=== PATIENT | male | born 1965 | race Two or more races ===

== ENCOUNTER 2024-07-03 09:14 | Inpatient (IN) | payer MEDICAID, OTHER ==
[~2024-07-03] VITALS: Ht 170.2 cm; Wt 62.3 kg
[2024-07-03 09:46] LABS: Urine Bacteria None Seen /hpf (None Seen)
[2024-07-03 09:56] LABS: Urine Blood Negative /uL (Negative); Urine Clarity Clear (Clear); Urine Color Yellow (Yellow); Urine Mucus FEW (None Seen); Urine Protein, UAD 1+ (Negative); Urine Specific Gravity 1.024 (1.001-1.035); Urine Squamous Epithelial Cell None Seen /hpf (<5); Urine Urobilinogen Normal (Negative); Urine WBC 1 /HPF (0-3)
--- NOTE | 2024-07-03 10:24 | ED.PDOC ---
GI ASSESSMENT HPI Comments 58 y.o male with PMHx of DM, presents to the ED for a chief complaint of left lower quadrant pain that started last night. Patient describes pain as sharp, is intermittent and non radiating. Patient reports ongoing episodes of watery diarrhea every time he eats for the past 4-5 weeks, went to see his PCP and was scheduled to see a bleaching supervisor on 07/19/24. Patient reports abdominal pain is new onset with no previous episodes, recent trauma or twisting. Patient denies any nausea, vomiting, fever, chills, bloody stool, or recent antibiotic use. Chief Complaint: Abdominal Pain Time Seen by MD: 10:07 Primary Care Provider: VICKI Reviewed Notes: Nurses Notes, Medications, Allergies Allergies: Coded Allergies: NO KNOWN ALLERGIES (Unverified , 07/03/24) Information Source: Patient Mode of Arrival: Ambulatory Timing: Hours Duration: Since onset Quality: Sharp Vomitus: None Stool: Loose, Watery Severity: Moderate Recent: None Recent Hx of: None Pain Location: LLQ Modifying Factors: Nothing Associated sign and symptoms: Diarrhea, Abdominal Pain Past Medical History PAST MEDICAL HISTORY: DM Surgical History (Other): back Family History Family History: Reviewed,noncontributory to illness Social History Smoker: Non-Smoker Alcohol: Denies ETOH Use Drugs: Denies Drug Use Lives In: Home Constitutional: denies: chills, diaphoresis, fatigue, fever, malaise, sweats, weakness, others EENTM: denies: blurred vision, double vision, ear bleeding, ear discharge, ear drainage, ear pain, ear ringing, eye pain, eye redness, hearing loss, mouth pain, mouth swelling, nasal discharge, nose bleeding, nose congestion, nose pa in, photophobia, tearing, throat pain, throat swelling, voice changes, others Respiratory: denies: cough, hemoptysis, orthopnea, SOB at rest, shortness of breath, SOB with excertion, stridor, wheezing, others Cardiovascular: denies: chest pain, dizzy spells, diaphoresis, Dyspnea on exertion, edema, irregular heart beat, left arm pain, lightheadedness, palpitations, PND, syncope, others Gastrointestinal: reports: abdominal pain, diarrhea; denies: abdomen distended, blood streaked bowels, constipated, dysphagia, difficulty swallowing, hematemesis, melena, nausea, poor appetite, poor fluid intake, rectal bleeding, rectal pain, vomiting, others Genitourinary: denies: burning, dysuria, flank pain, frequency, hematuria, incontinence, penile discharge, penile sore, pain, testicle pain, testicle swelling, urgency, others Neurological: denies: dizziness, fainting, headache, left sided numbness, left sided weakness, numbness, paresthesia, pre-existing deficit, right sided numbness, right sided weakness, seizure, speech problems, tingling, tremors, weakness, others Musculoskeletal: denies: back pain, gout, joint pain, joint swelling, muscle pain, muscle stiffness, neck pain, others Integumetry: denies: bruises, change in color, change in hair/nails, dryness, laceration, lesions, lumps, rash, wounds, others Allergic/Immunocompromised: denies: Difficulty Healing, Frequent Infections, Hives, Itching, others Hematologic/Lymphatic: denies: anemia, blood clots, easy bleeding, easy bruising, swollen glands, others Endocrine: denies: excessive hunger, excessive sweating, excessive thirst, excessive urination, flushing, intolerance to cold, intolerance to heat, unexplained weight gain, unexplained weight loss, others Psychiatric: denies: anxiety, bipolar disorder, depression, hopeless, panic disorder, schizophrenia, sleepless, suicidal, others All Other Systems: Reviewed and Negative Physical Exam General Appearance: No Apparent Distress HEENT: Other (Pupils and face symmetric. Moist mucous membranes.) Neck: Full Range of Motion, Normal Inspection Respiratory: Lungs Clear, No Accessory Muscle Use, No Respiratory Distress, Normal Breath Sounds Cardiovascular: No Edema, No JVD, Regular Rate/Rhythm Breast Exam: Deferred Gastrointestinal: LUQ, Tenderness Genitalia: Deferred Pelvic: Deferred Rectal: Deferred Extremities: Normal inspection, Normal range of motion, Non-tender, No pedal edema Neurologic: Alert (Oriented x4), Normal Affect, Normal Mood, NOT DONE (Ambulatory without difficulty) Cerebellar Function: NOT DONE Reflexes: NOT DONE Skin: Dry, Normal Color, Warm Lymphatic: NOT DONE Was a procedure done? Was a procedure done?: No GI differential Dx Differential Diagnosis: Diverticular disease, Esophagitis, Gastroenteritis, Inflammatory BD, Ischemic Bowel, Pancreatitis, Dehydration, Electrolyte Imbalance, Food Poisoning, Bacterial, Parasitic, Viral, Hypovolemia, Other (Colitis, among others) X-Ray, Labs, Meds, VS Vital Signs Date Time Temp Pulse Resp B/P (MAP) Pulse Ox O2 Delivery O2 Flow Rate FiO2 07/03/24 11:55 76 15 146/76 07/03/24 10:53 88 16 138/87 07/03/24 10:06 98.0 81 15 134/77 (96) 97 98.0 07/03/24 09:30 99.4 90 20 143/79 (100) 98 99.4 Lab Test 07/03/24 13:40 07/03/24 11:50 07/03/24 10:30 07/03/24 09:32 Range/Units Troponin I High Sensitivity < 3 L < 3 L < 3 L </=54 ng/L White Blood Count 2.5 L 4.4-10.8 10^3/uL Red Blood Count 4.53 4.5-5.90 10^6/uL Hemoglobin 13.7 13.5-17.5 g/dL Hematocrit 40.0 L 41.0-53.0 % Mean Corpuscular Volume 88.3 80.0-100.0 fL Mean Corpuscular Hemoglobin 30.3 28.0-32.0 pg Mean Corpuscular Hemoglobin Concent 34.3 32.0-36.0 g/dL Red Cell Distribution Width 13.6 11.8-14.3 % Platelet Count 153 140-450 10^3/uL Mean Platelet Volume 7.7 6.9-10.8 fL Neutrophils (%) (Auto) 58.3 37.0-80.0 % Lymphocytes (%) (Auto) 25.5 10.0-50.0 % Monocytes (%) (Auto) 13.3 H 0.0-12.0 % Eosinophils (%) (Auto) 2.4 0.0-7.0 % Basophils (%) (Auto) 0.5 0.0-2.0 % Neutrophils # (Auto) 1.4 L 1.6-8.6 10 ^3/uL Lymphocytes # (Auto) 0.6 0.4-5.4 10 ^3/uL Monocytes # (Auto) 0.3 0-1.3 10 ^3/uL Eosinophils # (Auto) 0.1 0-0.8 10 ^3/uL Basophils # (Auto) 0 0-0.2 10 ^3/uL Nucleated Red Blood Cells 0.3 % Sodium Level 137 136-145 mmol/L Potassium Level 3.8 3.5-5.1 mmol/L Chloride Level 102 98-107 mmol/L Carbon Dioxide Level 29 20-31 mmol/L Anion Gap 6 5-15 Blood Urea Nitrogen 13 9-23 mg/dL Creatinine 0.74 0.700-1.30 mg/dL Glomerular Filtration Rate Calc 105 >90 mL/min BUN/Creatinine Ratio 17.6 10.0-20.0 Serum Glucose 233 H 74-106 mg/dL Calcium Level 9.2 8.7-10.4 mg/dL Total Bilirubin 0.5 0.2-1.0 mg/dL Aspartate Amino Transferase (AST) 21 13-40 U/L Alanine Aminotransferase (ALT) 20 7-40 U/L Alkaline Phosphatase 119 H 46-116 U/L Total Protein 7.6 5.7-8.2 g/dL Albumin 4.2 3.2-4.8 g/dL Lipase 39 12-53 U/L Urine Color Yellow Yellow Urine Clarity Clear Clear Urine pH 6.0 5.0-9.0 Urine Specific [place] 1.024 1.001-1.035 Urine Protein 1+ H Negative Urine Ketones Negative Negative Urine Blood Negative Negative /uL Urine Nitrite Negative Negative Urine Bilirubin Negative Negative Urine Urobilinogen Normal Negative mg/dL Urine Leukocyte Esterase Negative Negative /uL Urine RBC None seen 0 - 3 /hpf Urine Microscopic WBC 1 0-3 /HPF Urine Squamous Epithelial Cells None seen <5 /hpf Urine Bacteria None seen None Seen /hpf Urine Mucus Few None Seen Urine Glucose 1+ H Normal mg/dL Current Medications Medications (Trade) Dose Ordered Sig/Berto Route Start Time Stop Time Status Last Admin Sodium Chloride 1,000 ml @ 1,000 mls/hr Q1H ONCE IV 07/03/24 10:30 07/03/24 11:29 DC 07/03/24 10:51 Pantoprazole Sodium (Protonix) 40 mg ONCE ONCE IV 07/03/24 10:30 07/03/24 10:31 DC 07/03/24 10:51 Loperamide HCl (Imodium Capsule) 4 mg ONCE ONCE PO 07/03/24 10:30 07/03/24 10:31 DC 07/03/24 10:52 Morphine Sulfate 4 mg ONCE ONCE IV 07/03/24 10:30 07/03/24 10:31 DC 07/03/24 10:53 Ondansetron HCl (Zofran) 4 mg ONCE ONCE IV 07/03/24 10:30 07/03/24 10:31 DC 07/03/24 10:[address] [address] Ph: [phone] DIAGNOSTIC IMAGING Diagnostic Imaging Report : [id number] Signed PATIENT: CRISTIAN JOHNSON ACCT: [id number] UNIT: [id number] : 1965 LOC: ER ROOM / BED: / AGE / SEX: 58 / M ADM STATUS: REG ER SERVICE 1021 ORDERING PHYSICIAN: SAMANTHA ORTEGA MD PROCEDURE(s): ABPL - CT AB PEL WO CON-NO ORAL OR IV REASON: LUQ pain, diarrhea ORDER NUMBER(s): [id number], ACCESSION NUMBER(s): [id number] Exam: CT CT AB PEL WO CON-NO ORAL OR IV History: LUQ pain, diarrhea Comparison Study: None Technique: Multidetector spiral CT of the abdomen and pelvis was performed from lung bases to pubic symphysis. Imaging was performed without IV contrast. Axial, coronal and sagittal multiplanar reformats were obtained from the axial data set by the technologist. Radiation dose : Abdomen/Pelvis: CTDIvol 5 mGy, DLP 290 mGy*cm. Findings: Evaluation of solid organs is limited due to lack of intravenous contrast use. Lung Bases: No acute or significant lung base finding. Normal heart size. No pleural or pericardial effusion. Liver: The liver is normal in size. No focal lesions. Gallbladder and biliary Tree: Unremarkable Spleen: Unremarkable Pancreas: The pancreas is grossly normal in appearance. Adrenal Glands: Unremarkable Kidneys: Kidneys are grossly normal without calculi or hydronephrosis. Bladder: Grossly unremarkable for degree of distention. Bowel: The stomach is grossly normal in appearance. Small bowel and colon are normal in caliber and distribution. Normal appendix is visualized in the right lower quadrant without findings of appendicitis. Nonspecific wall thickening of the colon could be due to underdistention. Ascites: Absent Lymphadenopathy: No mesenteric, retroperitoneal or periportal lymphadenopathy. Abdominal wall and Mesentery: Unremarkable. Vasculature: The visualized abdominal aorta is normal in size and caliber. Evaluation of abdominal and pelvic vessels is limited due to lack of intravenous contrast. Pelvic Organs: Unremarkable Musculoskeletal: Compression deformity of L4. Postsurgical changes L3 through L5. IMPRESSION: 1. No acute abdominal or pelvic findings. Nonspecific wall thickening of the colon could be due to underdistention or colitis. Clinical correlation and continued follow-up is recommended. Radiation optimization: All CT scans at this facility use at least one of these dose optimization techniques: Automated exposure control mA and/or kV adjustment per patient size (includes targeted exams where dose is matched to clinical indication) or iterative reconstruction. HS:Y ATED BY: EDI SCHREIBER MD DICTATED DATE/TIME: 07/03/24 1143 SIGNED BY: EDI SCHREIBER MD SIGNED DATE/TIME: 07/03/24 1143 CC: X-Ray, Labs, Meds, VS Comment 58-year-old male with a history of diabetes presenting complaining of left upper quadrant pain and diarrhea Vitals remarkable for BP 143/79 Exam remarkable for left upper quadrant tenderness to palpation Rhythm strip independently interpreted by me: Sinus rhythm, rate 90, no ectopy. CT abdomen and pelvis: IMPRESSION: 1. No acute abdominal or pelvic findings. Nonspecific wall thickening of the colon could be due to underdistention or colitis. Clinical correlation and continued follow-up is recommended. CBC remarkable for WBC 2.5, CMP remarkable for glucose 233, lipase normal, troponin negative x3, UA unremarkable Patient treated with the following in the ED: 1 L 0.9 normal saline IV bolus, morphine 4 mg IV, Zofran 4 mg IV, Protonix 40 mg IV, Imodium 4 mg p.o. , Zosyn 4.5 g IV On re-evaluation, patient states pain has improved. Vitals were stable. Plan is to admit the patient for IV antibiotics and GI evaluation. Time of 1ST Reevaluation: 10:56 Reevaluation 1ST: Unchanged Time of 2ND Reevaluation: 14:26 Reevaluation 2ND: Improved Patient Education/Counseling: Diagnosis, Treatment, Prognosis Family Education/Counseling: No Family Present Departure 1 Departure Time of Disposition: 14:27 Impression: Primary Impression: Colitis Additional Impression: Leukopenia Qualified Codes: D72.819 - Decreased white blood cell count, unspecified Disposition: 09 ADMITTED INPATIENT Admit to: Med Surg Condition: Guarded Critical Care Note Critical Care Time?: No Stability Stability form required: No Heart Score Heart Score: Heart Score Response (Comments) Value History N/A 0 EKG N/A 0 Age N/A 0 Risk Factors N/A 0 Troponin N/A 0 Total 0 I personally scribed for SAMANTHA ORTEGA MD ([facility]) on 07/03/24 at 10:24. Electronically submitted by Soha Bee ([facility]). I personally scribed for SAMANTHA ORTEGA MD ([facility]) on 07/03/24 at 10:56. Electronically submitted by Soha Bee ([facility]). I personally scribed for SAMANTHA ORTEGA MD ([facility]) on 07/03/24 at 12:04. Electronically submitted by Soha Bee ([facility]). SAMANTHA ORTEGA MD Jul 03, 2024 10:24
[2024-07-03 10:46] LABS: Basophils # (auto) 0 10 ^3/uL (0-0.2); Basophils % (auto) 0.5 % (0.0-2.0); Eosinophils # (auto) 0.1 10 ^3/uL (0-0.8); Eosinophils % (auto) 2.4 % (0.0-7.0); Hemoglobin 13.7 g/dL (13.5-17.5); Lymphocytes # (auto) 0.6 10 ^3/uL (0.4-5.4); Lymphocytes % (auto) 25.5 % (10.0-50.0); Mean Corpuscular Hemoglobin 30.3 pg (28.0-32.0); Mean Corpuscular Hgb Conc. 34.3 g/dL (32.0-36.0); Mean Corpuscular Volume 88.3 fL (80.0-100.0); Monocytes # (auto) 0.3 10 ^3/uL (0-1.3); Monocytes % (auto) 13.3 % (0.0-12.0); Neutrophils # (auto) 1.4 10 ^3/uL (1.6-8.6); Neutrophils % (auto) 58.3 % (37.0-80.0); Nucleated Red Blood Cells % 0.3 %; Platelet Count (auto) 153 10^3/uL (140-450); Red Blood Cells 4.53 10^6/uL (4.5-5.90); Red Cell Distribution Width 13.6 % (11.8-14.3); White Blood Cell 2.5 10^3/uL (4.4-10.8)
[2024-07-03] MEDS: SODIUM CHLORIDE 0.9% 1,000 ML IV ONE (10:51)
[2024-07-03] MEDS: PANTOPRAZOLE 40 MG/10 ML VIAL INJ IV ONE (10:51)
[2024-07-03] MEDS: ONDANSETRON HCL 4 MG/2 ML VIAL IV ONE (10:51)
[2024-07-03] MEDS: LOPERAMIDE HCL 2 MG CAP/TAB PO ONE (10:52)
[2024-07-03] MEDS: MORPHINE SULFATE 4 MG/ML SYR/VIAL IV ONE (10:53)
[2024-07-03 11:07] LABS: Alanine Aminotransferase 20 U/L (7-40); Albumin 4.2 g/dL (3.2-4.8); Anion Gap 6 (5-15); Aspartate Aminotransferase 21 U/L (13-40); BUN/Creatinine Ratio 17.6 (10.0-20.0); Blood Urea Nitrogen 13 mg/dL (9-23); Calcium 9.2 mg/dL (8.7-10.4); Carbon Dioxide 29 mmol/L (20-31); Chloride 102 mmol/L (98-107); Lipase 39 U/L (12-53); Potassium 3.8 mmol/L (3.5-5.1); Sodium 137 mmol/L (136-145); Total Protein 7.6 g/dL (5.7-8.2)
[2024-07-03 11:08] LABS: Bilirubin, Total 0.5 mg/dL (0.2-1.0); Glucose 233 mg/dL (74-106)
[2024-07-03 11:09] LABS: Alkaline Phosphatase 119 U/L (46-116)
--- NOTE | 2024-07-03 11:45 | DVH ---
Exam: CT CT AB PEL WO CON-NO ORAL OR IV History: LUQ pain, diarrhea Comparison Study: None Technique: Multidetector spiral CT of the abdomen and pelvis was performed from lung bases to pubic symphysis. Imaging was performed without IV contrast. Axial, coronal and sagittal multiplanar reform ats were obtained from the axial data set by the technologist. Radiation dose : Abdomen/Pelvis: CTDIvol 5 mGy, DLP 290 mGy*cm. Findings: Evaluation of solid organs is limited due to lack of intravenous contrast use. Lung Bases: No acute or significant lung base finding. Normal heart size. No pleural or pericardial effusion. Liver: The liver is normal in size. No focal lesions. Gallbladder and biliary Tree: Unremarkable Spleen: Unremarkable Pancreas: The pancreas is grossly normal in appearance. Adrenal Glands: Unremarkable Kidneys: Kidneys are grossly normal without calculi or hydronephrosis. Bladder: Grossly unremarkable for degree of distention. Bowel: The stomach is grossly normal in appearance. Small bowel and colon are normal in caliber and d istribution. Normal appendix is visualized in the right lower quadrant without findings of appendicit is. Nonspecific wall thickening of the colon could be due to underdistention. Ascites: Absent Lymphadenopathy: No mesenteric, retroperitoneal or periportal lymphadenopathy. Abdominal wall and Mesentery: Unremarkable. Vasculature: The visualized abdominal aorta is normal in size and caliber. Evaluation of abdominal a nd pelvic vessels is limited due to lack of intravenous contrast. Pelvic Organs: Unremarkable Musculoskeletal: Compression deformity of L4. Postsurgical changes L3 through L5. IMPRESSION: 1. No acute abdominal or pelvic findings. Nonspecific wall thickening of the colon could be due to un derdistention or colitis. Clinical correlation and continued follow-up is recommended. Radiation optimization: All CT scans at this facility use at least one of these dose optimization ranjan hniques: Automated exposure control mA and/or kV adjustment per patient size (includes targeted exams where dose is matched to clinical indication) or iterative reconstruction. HS:Y
[2024-07-03] MEDS: PIPERACILLIN-TAZO 4.5GM 100 ML IV ONE (14:30)
[2024-07-03] MEDS ORDERED: ONDANSETRON HCL 4 MG/2 ML VIAL IV PRN (15:00)
[2024-07-03] MEDS ORDERED: DEXTROSE (50%) 50ML SYRG IV PRN (15:00)
[2024-07-03] MEDS ORDERED: DOCUSATE SOD 100 MG CAP PO PRN (15:00)
[2024-07-03] MEDS: LACTATED RINGER'S 1,000 ML IV ONE (15:00)
[2024-07-03] MEDS ORDERED: HYDROcodone-ACET 5/325MG TAB PO PRN (15:00)
--- NOTE | 2024-07-03 15:04 | DVHHP2 ---
Admitting Diagnosis: Abdominal pain History of Present Illness 58 y.o male with PMHx of DM, presents to the ED for a chief complaint of left lower quadrant pain that started last night. Patient describes pain as sharp, is intermittent and non radiating. Patient reports ongoing episodes of watery diarrhea every time he eats for the past 4-5 weeks, went to see his PCP and was scheduled to see a plastic welding machine operator on 07/19/24. Patient reports abdominal pain is new onset with no previous episodes, recent trauma or twisting. Patient denies any nausea, vomiting, fever, chills, bloody stool, or recent antibiotic use. PAST MEDICAL HISTORY: DM Surgical History (Other): back Family History: Reviewed,noncontributory to illness Social History Smoker: Non-Smoker Alcohol: Denies ETOH Use Drugs: Denies Drug Use Lives In: Home Allergies: Coded Allergies: NO KNOWN ALLERGIES (Unverified , 07/03/24) Vital Signs Vital Signs Date Time Temp Pulse Resp B/P (MAP) Pulse Ox O2 Delivery O2 Flow Rate FiO2 07/03/24 11:55 76 15 146/76 07/03/24 10:06 98.0 97 98.0 Physical Exam Generally-58 years old male, well nourished well developed. Mild distress HEENT atraumatic, normocephalic Heart-regular rate and rhythm Lungs clear to auscultate bilaterally Abdomen soft, mild tender left lower quadrant, nondistended Musculoskeletal-no edema cyanosis Neuro-AO x3, no focal deficits Results Labs Test 07/03/24 13:40 07/03/24 10:30 07/03/24 09:32 Range/Units Troponin I High Sensitivity < 3 L </=54 ng/L White Blood Count 2.5 L 4.4-10.8 10^3/uL Red Blood Count 4.53 4.5-5.90 10^6/uL Hemoglobin 13.7 13.5-17.5 g/dL Hematocrit 40.0 L 41.0-53.0 % Mean Corpuscular Volume 88.3 80.0-100.0 fL Mean Corpuscular Hemoglobin 30.3 28.0-32.0 pg Mean Corpuscular Hemoglobin Concent 34.3 32.0-36.0 g/dL Red Cell Distribution Width 13.6 11.8-14.3 % Platelet Count 153 140-450 10^3/uL Mean Platelet Volume 7.7 6.9-10.8 fL Neutrophils (%) (Auto) 58.3 37.0-80.0 % Lymphocytes (%) (Auto) 25.5 10.0-50.0 % Monocytes (%) (Auto) 13.3 H 0.0-12.0 % Eosinophils (%) (Auto) 2.4 0.0-7.0 % Basophils (%) (Auto) 0.5 0.0-2.0 % Neutrophils # (Auto) 1.4 L 1.6-8.6 10 ^3/uL Lymphocytes # (Auto) 0.6 0.4-5.4 10 ^3/uL Monocytes # (Auto) 0.3 0-1.3 10 ^3/uL Eosinophils # (Auto) 0.1 0-0.8 10 ^3/uL Basophils # (Auto) 0 0-0.2 10 ^3/uL Nucleated Red Blood Cells 0.3 % Sodium Level 137 136-145 mmol/L Potassium Level 3.8 3.5-5.1 mmol/L Chloride Level 102 98-107 mmol/L Carbon Dioxide Level 29 20-31 mmol/L Anion Gap 6 5-15 Blood Urea Nitrogen 13 9-23 mg/dL Creatinine 0.74 0.700-1.30 mg/dL Glomerular Filtration Rate Calc 105 >90 mL/min BUN/Creatinine Ratio 17.6 10.0-20.0 Serum Glucose 233 H 74-106 mg/dL Calcium Level 9.2 8.7-10.4 mg/dL Total Bilirubin 0.5 0.2-1.0 mg/dL Aspartate Amino Transferase (AST) 21 13-40 U/L Alanine Aminotransferase (ALT) 20 7-40 U/L Alkaline Phosphatase 119 H 46-116 U/L Total Protein 7.6 5.7-8.2 g/dL Albumin 4.2 3.2-4.8 g/dL Lipase 39 12-53 U/L Urine Color Yellow Yellow Urine Clarity Clear Clear Urine pH 6.0 5.0-9.0 Urine Specific [place] 1.024 1.001-1.035 Urine Protein 1+ H Negative Urine Ketones Negative Negative Urine Blood Negative Negative /uL Urine Nitrite Negative Negative Urine Bilirubin Negative Negative Urine Urobilinogen Normal Negative mg/dL Urine Leukocyte Esterase Negative Negative /uL Urine RBC None seen 0 - 3 /hpf Urine Microscopic WBC 1 0-3 /HPF Urine Squamous Epithelial Cells None seen <5 /hpf Urine Bacteria None seen None Seen /hpf Urine Mucus Few None Seen Urine Glucose 1+ H Normal mg/dL Primary Diagnosis Diarrhea likely due to colitis Plan Patient still has diarrhea And pelvis shows acute colitis Start Zosyn for broad-spectrum antibiotics Check CRP IV fluids for hydration Check stool culture Rule out C diff Clear liquid diet as tolerated Antiemetic Full code Lovenox for DVT prophylaxis PPI for GI prophylaxis Plan discussed with: Patient Problems List: (1) Leukopenia Status: Acute (2) Colitis Status: Acute Date of Service: Jul 03, 2024 Billing Provider: JEFERSON TA MD Common Visit Codes: [id number] INP/OBS CARE (MOD) JEFERSON TA MD Jul 03, 2024 15:04
[2024-07-03 16:34] VITALS: PULSE 73; RESP 18; TEMP 98.1; O2SAT 99
[2024-07-03 17:00] VITALS: BP 130/63; PULSE 89; RESP 16; TEMP 98.1; O2SAT 98
[2024-07-03] MEDS: ACCU-CHEK COMFORT CURVE STRIP VI SCH (18:00)
[2024-07-03] MEDS: InsuLIN REG 1unit/0.01ml Soln (100units/ml) SC SCH (18:56)
[2024-07-03] MEDS: PIPERACILLIN-TAZOB 3.375GM 100 ML IV SCH (21:08)
[2024-07-03] MEDS: SODIUM CHLOR 0.9% PF (SALINE LOCK) 10ML VIAL/SYR IV SCH (21:09)
[2024-07-03 21:55] VITALS: BP 135/71; PULSE 72; RESP 18; TEMP 98.6; O2SAT 98
[2024-07-04] VITALS (7 sets, daily range): BP systolic 111–123; BP diastolic 55–67; PULSE 64–74; RESP 15–18; TEMP 98–98.4; O2SAT 97–99
[2024-07-04 07:57] LABS: Basophils # (auto) 0 10 ^3/uL (0-0.2); Basophils % (auto) 0.5 % (0.0-2.0); Eosinophils # (auto) 0.1 10 ^3/uL (0-0.8); Eosinophils % (auto) 2.5 % (0.0-7.0); Hematocrit 36.1 % (41.0-53.0); Hemoglobin 12.4 g/dL (13.5-17.5); Lymphocytes # (auto) 0.8 10 ^3/uL (0.4-5.4); Lymphocytes % (auto) 30.4 % (10.0-50.0); Mean Corpuscular Hemoglobin 30.3 pg (28.0-32.0); Mean Corpuscular Hgb Conc. 34.3 g/dL (32.0-36.0); Mean Corpuscular Volume 88.3 fL (80.0-100.0); Monocytes # (auto) 0.3 10 ^3/uL (0-1.3); Monocytes % (auto) 11.5 % (0.0-12.0); Neutrophils # (auto) 1.4 10 ^3/uL (1.6-8.6); Neutrophils % (auto) 55.1 % (37.0-80.0); Nucleated Red Blood Cells % 0.1 %; Platelet Count (auto) 142 10^3/uL (140-450); Red Blood Cells 4.08 10^6/uL (4.5-5.90); Red Cell Distribution Width 13.6 % (11.8-14.3); White Blood Cell 2.5 10^3/uL (4.4-10.8)
[2024-07-04 08:24] LABS: Alanine Aminotransferase 17 U/L (7-40); Albumin 3.7 g/dL (3.2-4.8); Alkaline Phosphatase 99 U/L (46-116); Anion Gap 8 (5-15); Aspartate Aminotransferase 21 U/L (13-40); BUN/Creatinine Ratio 12.1 (10.0-20.0); Carbon Dioxide 28 mmol/L (20-31); Chloride 106 mmol/L (98-107); Glucose 99 mg/dL (74-106); Magnesium 1.9 mg/dL (1.6-2.6); Sodium 142 mmol/L (136-145); Total Protein 6.6 g/dL (5.7-8.2)
[2024-07-04 08:25] LABS: Bilirubin, Total 0.5 mg/dL (0.2-1.0)
[2024-07-04 08:26] LABS: Blood Urea Nitrogen 8 mg/dL (9-23); Calcium 8.5 mg/dL (8.7-10.4); Potassium 3.5 mmol/L (3.5-5.1)
[2024-07-04] MEDS: PANTOPRAZOLE 40 MG/10 ML VIAL INJ IV SCH (09:08)
[2024-07-04] MEDS: ENOXAPARIN SOD 40 MG/0.4 ML SYRINGE SC SCH (09:08)
--- NOTE | 2024-07-04 12:27 | DVHPN2 ---
Changes from previous H/P or p: No Changes Objective Vitals Vital Signs Date Time Temp Pulse Resp B/P (MAP) Pulse Ox O2 Delivery O2 Flow Rate FiO2 07/04/24 08:29 98.0 74 17 119/59 (79) 97 98.0 07/04/24 08:00 Room Air* 0 21 Intake/Output Intake and Output 07/04/24 07:00 Intake Total 1800 ml Balance 1800 ml Intake Oral 600 ml IV Total 200 ml Other 1000 ml # Voids 2 Medications Current Medications Medications Dose Ordered Sig/Berto Route Start Time Stop Time Status Last Admin Dose Admin Piperacillin Sod/ Tazobactam Sod 100 ml @ 100 mls/hr Q8HR IV 07/03/24 22:00 07/04/24 06:02 100 MLS/HR Sodium Chloride 10 ml Q8HR IV 07/03/24 22:00 07/04/24 12:04 10 ML Docusate Sodium 100 mg BIDPRN PRN PO 07/03/24 15:00 Acetaminophen 650 mg Q6HP PRN PO 07/03/24 15:00 Acetaminophen/ Hydrocodone Bitart 1 tab Q4HP PRN PO 07/03/24 15:00 Ondansetron HCl 4 mg Q4HP PRN IV 07/03/24 15:00 Enoxaparin Sodium 40 mg DAILY SC 07/04/24 10:00 07/04/24 09:08 40 MG Diagnostic Test (Pha) 1 strip ACHS 07/03/24 17:00 07/04/24 11:41 1 STRIP Insulin Human Regular ACHS SC 07/03/24 17:00 07/04/24 12:04 3 UNITS Dextrose 50 ml UD PRN IV 07/03/24 15:00 Pantoprazole Sodium 40 mg DAILY IV 07/04/24 10:00 07/04/24 09:08 40 MG Laboratory Results Laboratory Tests 07/04/24 06:22 Chemistry Test 07/04/24 06:22 Albumin 3.7 g/dL (3.2-4.8) Calcium Level 8.5 mg/dL (8.7-10.4) L Magnesium Level 1.9 mg/dL (1.6-2.6) Total Protein 6.6 g/dL (5.7-8.2) LFT Test 07/04/24 06:22 Alanine Aminotransferase (ALT) 17 U/L (7-40) Alkaline Phosphatase 99 U/L (46-116) Aspartate Amino Transferase (AST) 21 U/L (13-40) Total Bilirubin 0.5 mg/dL (0.2-1.0) Urinalysis Test 07/03/24 09:32 Urine Color Yellow (Yellow) Urine Clarity Clear (Clear) Urine pH 6.0 (5.0-9.0) Urine Specific [place] 1.024 (1.001-1.035) Urine Protein 1+ (Negative) H Urine Ketones Negative (Negative) Urine Blood Negative /uL (Negative) Urine Nitrite Negative (Negative) Urine Bilirubin Negative (Negative) Urine Urobilinogen Normal mg/dL (Negative) Urine Leukocyte Esterase Negative /uL (Negative) Urine RBC None seen /hpf (0 - 3) Urine Microscopic WBC 1 /HPF (0-3) Urine Squamous Epithelial Cells None seen /hpf (<5) Urine Bacteria None seen /hpf (None Seen) Urine Mucus Few (None Seen) Urine Glucose 1+ mg/dL (Normal) H Labs and/or images reviewed: Labs reviewed by me, Image(s) reviewed by me Assessment/Plan Assessment/Plan Acute left lower quadrant abdominal pain possibly due to colitis Diarrhea Possibly due to colitis: Zosyn Acute dehydration: IV fluids Plan discussed with: Patient Date of Service: Jul 04, 2024 Billing Provider: MARCO GREEN MD Common Visit Codes: [id number] INP/OBS CARE(HIGH) MARCO GREEN MD Jul 04, 2024 12:27
[2024-07-04] MEDS ORDERED: SODIUM CHLORIDE 0.9% 1,000 ML IV SCH (12:30)
[2024-07-04] MEDS: SODIUM CHLORIDE 0.9% 1,000 ML IV SCH (13:11)
[2024-07-05 01:00] VITALS: BP 115/61; PULSE 60; RESP 15; TEMP 99.1; O2SAT 97
[2024-07-05] MEDS: ACETAMINOPHEN 325 MG TAB PO PRN (01:17)
[2024-07-05 05:00] VITALS: BP 122/56; PULSE 60; RESP 15; TEMP 97.8; O2SAT 97
[2024-07-05 07:27] LABS: Basophils # (auto) 0 10 ^3/uL (0-0.2); Basophils % (auto) 0.4 % (0.0-2.0); Eosinophils # (auto) 0.1 10 ^3/uL (0-0.8); Eosinophils % (auto) 4.4 % (0.0-7.0); Hemoglobin 12.4 g/dL (13.5-17.5); Lymphocytes # (auto) 0.6 10 ^3/uL (0.4-5.4); Lymphocytes % (auto) 28.6 % (10.0-50.0); Mean Corpuscular Hemoglobin 29.9 pg (28.0-32.0); Mean Corpuscular Hgb Conc. 33.6 g/dL (32.0-36.0); Mean Corpuscular Volume 89.1 fL (80.0-100.0); Monocytes # (auto) 0.3 10 ^3/uL (0-1.3); Monocytes % (auto) 12.8 % (0.0-12.0); Neutrophils # (auto) 1.1 10 ^3/uL (1.6-8.6); Neutrophils % (auto) 53.8 % (37.0-80.0); Nucleated Red Blood Cells % 0.3 %; Platelet Count (auto) 139 10^3/uL (140-450); Red Blood Cells 4.15 10^6/uL (4.5-5.90); Red Cell Distribution Width 13.8 % (11.8-14.3)
[2024-07-05 07:35] LABS: Alanine Aminotransferase 18 U/L (7-40); Alkaline Phosphatase 89 U/L (46-116); Anion Gap 6 (5-15); BUN/Creatinine Ratio 7.4 (10.0-20.0); Carbon Dioxide 29 mmol/L (20-31); Glucose 97 mg/dL (74-106); Magnesium 2.2 mg/dL (1.6-2.6); Sodium 144 mmol/L (136-145); Total Protein 6.4 g/dL (5.7-8.2)
[2024-07-05 07:36] LABS: Albumin 3.6 g/dL (3.2-4.8)
[2024-07-05 07:37] LABS: Aspartate Aminotransferase 22 U/L (13-40); Bilirubin, Total 0.5 mg/dL (0.2-1.0)
[2024-07-05 07:38] LABS: Blood Urea Nitrogen 5 mg/dL (9-23); Calcium 8.5 mg/dL (8.7-10.4); Chloride 109 mmol/L (98-107); Potassium 3.4 mmol/L (3.5-5.1)
[2024-07-05 08:00] VITALS: PULSE 62; RESP 20; O2SAT 97
[2024-07-05 09:00] VITALS: BP 115/61; PULSE 62; RESP 20; TEMP 98.1; O2SAT 97
[2024-07-05] MEDS ORDERED: LEVO500T91 PO (10:50)
[2024-07-05] MEDS ORDERED: METR-344 PO (10:50)
--- NOTE | 2024-07-05 10:53 | DVHDS2 ---
Discharge Summary Date of Admission Jul 03, 2024 at 14:58 Date of Discharge: Jul 05, 2024 Admitting Diagnosis Abdominal pain diarrhea Wounds: none Labs/Diagnostic Data: Laboratory Results Test 07/05/24 06:13 07/05/24 05:52 07/04/24 13:50 07/03/24 13:40 POC Glucose 100 mg/dl (70-106) White Blood Count 2.0 10^3/uL (4.4-10.8) Red Blood Count 4.15 10^6/uL (4.5-5.90) Hemoglobin 12.4 g/dL (13.5-17.5) Hematocrit 37.0 % (41.0-53.0) Mean Corpuscular Volume 89.1 fL (80.0-100.0) Mean Corpuscular Hemoglobin 29.9 pg (28.0-32.0) Mean Corpuscular Hemoglobin Concent 33.6 g/dL (32.0-36.0) Red Cell Distribution Width 13.8 % (11.8-14.3) Platelet Count 139 10^3/uL (140-450) Mean Platelet Volume 7.9 fL (6.9-10.8) Neutrophils (%) (Auto) 53.8 % (37.0-80.0) Lymphocytes (%) (Auto) 28.6 % (10.0-50.0) Monocytes (%) (Auto) 12.8 % (0.0-12.0) Eosinophils (%) (Auto) 4.4 % (0.0-7.0) Basophils (%) (Auto) 0.4 % (0.0-2.0) Neutrophils # (Auto) 1.1 10 ^3/uL (1.6-8.6) Lymphocytes # (Auto) 0.6 10 ^3/uL (0.4-5.4) Monocytes # (Auto) 0.3 10 ^3/uL (0-1.3) Eosinophils # (Auto) 0.1 10 ^3/uL (0-0.8) Basophils # (Auto) 0 10 ^3/uL (0-0.2) Nucleated Red Blood Cells 0.3 % Sodium Level 144 mmol/L (136-145) Potassium Level 3.4 mmol/L (3.5-5.1) Chloride Level 109 mmol/L (98-107) Carbon Dioxide Level 29 mmol/L (20-31) Anion Gap 6 (5-15) Blood Urea Nitrogen 5 mg/dL (9-23) Creatinine 0.68 mg/dL (0.700-1.30) Glomerular Filtration Rate Calc 108 mL/min (>90) BUN/Creatinine Ratio 7.4 (10.0-20.0) Serum Glucose 97 mg/dL (74-106) Calcium Level 8.5 mg/dL (8.7-10.4) Magnesium Level 2.2 mg/dL (1.6-2.6) Total Bilirubin 0.5 mg/dL (0.2-1.0) Aspartate Amino Transferase (AST) 22 U/L (13-40) Alanine Aminotransferase (ALT) 18 U/L (7-40) Alkaline Phosphatase 89 U/L (46-116) Total Protein 6.4 g/dL (5.7-8.2) Albumin 3.6 g/dL (3.2-4.8) Stool Occult Blood Negative (Negative) Stool Occult Blood Sample #3 (Negative) Troponin I High Sensitivity < 3 ng/L (</=54) Test 07/03/24 10:30 07/03/24 09:32 Hemoglobin A1c 7.3 % A1C (<5.7) C-Reactive Protein High Sensitivity 0.64 mg/dL (<1.0) Lipase 39 U/L (12-53) Urine Color Yellow (Yellow) Urine Clarity Clear (Clear) Urine pH 6.0 (5.0-9.0) Urine Specific [place] 1.024 (1.001-1.035) Urine Protein 1+ (Negative) Urine Ketones Negative (Negative) Urine Blood Negative /uL (Negative) Urine Nitrite Negative (Negative) Urine Bilirubin Negative (Negative) Urine Urobilinogen Normal mg/dL (Negative) Urine Leukocyte Esterase Negative /uL (Negative) Urine RBC None seen /hpf (0 - 3) Urine Microscopic WBC 1 /HPF (0-3) Urine Squamous Epithelial Cells None seen /hpf (<5) Urine Bacteria None seen /hpf (None Seen) Urine Mucus Few (None Seen) Urine Glucose 1+ mg/dL (Normal) Other Laboratory Tests 07/05/24 05:52 Brief Hx & Hospital Course: 58 Year-old male came in complaining of abdominal pain and diarrhea, CT abdomen pelvis showed colitis treated with the Zosyn acute dehydration resolved with IV fluids patient wants to go home. Discharged home on Levaquin and Flagyl. At the time of discharge patient is afebrile without any symptoms and stable vital signs. Consults/Reason for consult None Operations or Procedures CT abdomen pelvis without contrast Condition at Discharge: Fair Final Diagnosis/Problems List Acute left lower quadrant abdominal pain possibly due to colitis Diarrhea Possibly due to colitis: Treated with Zosyn Acute dehydration: IV fluids Discharge Disposition: Home Discharge Instruct/Medications Diet: Regular Activity: Light activity Follow Up/Referral: Follow up with the primary Dr Medications: Levaquin Flagyl Transmitted to pharmacy 35 (Time taken for discharge summary 35 minutes) Discharge Statement: "Patient was advised to return to the ER or call 911 if any headaches, dizziness, shortness of breath, chest pain, abdominal pain, bleeding, fevers, or worsening of medical condition. Patient was counseled about treatment plan, medications, possible side effects, patientverbalized understanding. All questions were answered to the best of my ability. This discharge took greater then 30 minutes in planning, reviewing documentation, counseling the patient, and discussing with other team members." ASSESSMENT ASSESSMENT Hospital Course Improved Assessment Acute left lower quadrant abdominal pain possibly due to colitis Diarrhea Possibly due to colitis: Treated with Zosyn Acute dehydration: IV fluids Date of Service: Jul 05, 2024 Billing Provider: MARCO GREEN MD Common Visit Codes: [id number] INP/OBS CARE(HIGH) MARCO GREEN MD Jul 05, 2024 10:53
[2024-07-05 13:00] VITALS: BP 144/72; PULSE 61; RESP 20; TEMP 97.6; O2SAT 97
[2024-07-05 13:30] VITALS: BP 115/61; PULSE 62; RESP 20; TEMP 98.1; O2SAT 97
== END 2024-07-05 14:35 | disposition home or self-care (01) | DRG 249 ==
LOC: ER 09:14 → OVERFLOW 14:58 → WEST WING 15:01
PROVIDERS: ADMIT Family Medicine; ATTEND Family Medicine
DX: A09 Infectious gastroenteritis and colitis, unspecified (principal); D72.819 Decreased white blood cell count, unspecified; E11.9 Type 2 diabetes mellitus without complications; E86.0 Dehydration
CPT/HCPCS: 36415; 74176; 80053; 81001; 82270; 82962; 83036; 83690; 83735; 84484; 85025; 86141; 87040; 87493; 96361; 96365; 96372; 96375; G0378; J1815; J2405; J2470; J2543

== ENCOUNTER 2024-08-10 09:42 | Emergency (ER) | payer MEDICAID ==
[~2024-08-10] VITALS: Ht 170.2 cm; Wt 55.3 kg
[~2024-08-10 09:42] MED LIST: LEVO500T91 PO; METR-344 PO
[2024-08-10 10:21] LABS: Basophils # (auto) 0 10 ^3/uL (0-0.2); Basophils % (auto) 0.4 % (0.0-2.0); Eosinophils # (auto) 0 10 ^3/uL (0-0.8); Eosinophils % (auto) 1.6 % (0.0-7.0); Hematocrit 39.9 % (41.0-53.0); Hemoglobin 13.8 g/dL (13.5-17.5); Lymphocytes # (auto) 0.5 10 ^3/uL (0.4-5.4); Lymphocytes % (auto) 17.9 % (10.0-50.0); Mean Corpuscular Hemoglobin 30.5 pg (28.0-32.0); Mean Corpuscular Hgb Conc. 34.7 g/dL (32.0-36.0); Mean Corpuscular Volume 87.9 fL (80.0-100.0); Monocytes # (auto) 0.3 10 ^3/uL (0-1.3); Monocytes % (auto) 11.9 % (0.0-12.0); Neutrophils # (auto) 1.9 10 ^3/uL (1.6-8.6); Neutrophils % (auto) 68.2 % (37.0-80.0); Nucleated Red Blood Cells % 0.1 %; Platelet Count (auto) 162 10^3/uL (140-450); Red Blood Cells 4.54 10^6/uL (4.5-5.90); Red Cell Distribution Width 13.2 % (11.8-14.3); White Blood Cell 2.8 10^3/uL (4.4-10.8)
[2024-08-10 10:32] LABS: Chloride 105 mmol/L (98-107); Sodium 138 mmol/L (136-145)
[2024-08-10 10:33] LABS: Anion Gap 6 (5-15); Carbon Dioxide 27 mmol/L (20-31)
[2024-08-10 10:34] LABS: Calcium 9.7 mg/dL (8.7-10.4)
[2024-08-10 10:39] LABS: BUN/Creatinine Ratio 21.5 (10.0-20.0); Blood Urea Nitrogen 17 mg/dL (9-23); Glucose 191 mg/dL (74-106); Potassium 3.4 mmol/L (3.5-5.1)
--- NOTE | 2024-08-10 10:49 | ED.PDOC ---
GI ASSESSMENT HPI Comments 58 y.o male presents to the ED for a chief complaint of diffused abdominal pain associated with nausea and diarrhea that started 2 days ago. Patient describes pain as sharp, constant, non radiating and has no alleviating factors. Patient reports being admitted 5 weeks ago at this ED for same complaint and was diagnosed with colitis. Patient was given antibiotics during admission and orally when discharged which resolved symptoms then. Patient denies any fever, chills, bloody stool, hematuria or dysuria. Patient is being worked up with PCP for recent unintentional weight loss for the past 4 months and is awaiting an endoscopy/ colonoscopy procedure. Chief Complaint: Abdominal Pain Time Seen by MD: 10:41 Primary Care Provider: COHEN Reviewed Notes: Nurses Notes, Medications, Allergies Allergies: Coded Allergies: NO KNOWN ALLERGIES (Unverified , 07/03/24) Home Meds Active Scripts Metronidazole (Flagyl) 500 Mg Tab, 1 TAB PO TID, #20 TAB Prov:MARCO GREEN MD 07/05/24 Levofloxacin Hemihydrate (LEVAQUIN 500 MG) 500 Mg Tab, 1 TAB PO DAILY, #7 TAB Prov:MARCO GREEN MD 07/05/24 Information Source: Patient Mode of Arrival: Ambulatory Timing: Days (2) Duration: Since onset Quality: Aching Vomitus: None Stool: Loose Severity: Moderate Recent: None Recent Hx of: Other (Colitis ) Pain Location: Diffuse Modifying Factors: Nothing Associated sign and symptoms: Nausea, Diarrhea, Abdominal Pain Past Medical History PAST MEDICAL HISTORY: DM Surgical History: Denies all surgeries Family History Family History: Reviewed,noncontributory to illness Social History Smoker: Non-Smoker Alcohol: Denies ETOH Use Drugs: Denies Drug Use Lives In: Home Constitutional: denies: chills, diaphoresis, fatigue, fever, malaise, sweats, weakness, others EENTM: denies: blurred vision, double vision, ear bleeding, ear discharge, ear drainage, ear pain, ear ringing, eye pain, eye redness, hearing loss, mouth pain, mouth swelling, nasal discharge, nose bleeding, nose congestion, nose pain, photophobia, tearing, throat pain, throat swelling, voice changes, others Respiratory: denies: cough, hemoptysis, orthopnea, SOB at rest, shortness of breath, SOB with excertion, stridor, wheezing, others Cardiovascular: denies: chest pain, dizzy spells, diaphoresis, Dyspnea on exertion, edema, irregular heart beat, left arm pain, lightheadedness, palpitations, PND, syncope, others Gastrointestinal: reports: abdominal pain, diarrhea, nausea; denies: abdomen distended, blood streaked bowels, constipated, dysphagia, difficulty swallowing, hematemesis, melena, poor appetite, poor fluid intake, rectal bleeding, rectal pain, vomiting, others Genitourinary: denies: burning, dysuria, flank pain, frequency, hematuria, incontinence, penile discharge, penile sore, pain, testicle pain, testicle swelling, urgency, others Neurological: denies: dizziness, fainting, headache, left sided numbness, left sided weakness, numbness, paresthesia, pre-existing deficit, right sided numbness, right sided weakness, seizure, speech problems, tingling, tremors, weakness, others Musculoskeletal: denies: back pain, gout, joint pain, joint swelling, muscle pain, muscle stiffness, neck pain, others Integumetry: denies: bruises, change in color, change in hair/nails, dryness, laceration, lesions, lumps, rash, wounds, others Allergic/Immunocompromised: denies: Difficulty Healing, Frequent Infections, Hives, Itching, others Hematologic/Lymphatic: denies: anemia, blood clots, easy bleeding, easy bruising, swollen glands, others Endocrine: denies: excessive hunger, excessive sweating, excessive thirst, excessive urination, flushing, intolerance to cold, intolerance to heat, unexplained weight gain, unexplained weight loss, others Psychiatric: denies: anxiety, bipolar disorder, depression, hopeless, panic disorder, schizophrenia, sleepless, suicidal, others All Other Systems: Reviewed and Negative Physical Exam General Appearance: Moderate Distress HEENT: Normal ENT Inspection, Pharynx Normal, TMs Normal Neck: Full Range of Motion, Non-Tender, Normal, Normal Inspection Respiratory: Chest Non-Tender, Lungs Clear, No Accessory Muscle Use, No Respiratory Distress, Normal Breath Sounds Cardiovascular: No Edema, No JVD, No Murmur, No Gallop, Normal Peripheral Pulses, Regular Rate/Rhythm Breast Exam: Deferred Gastrointestinal: No Organomegaly, Non Tender, No Pulsatile Mass, Normal Bowel Sounds, Soft Genitalia: Deferred Pelvic: Deferred Rectal: Deferred Extremities: No calf tenderness, Normal capillary refill, Normal inspection, Normal range of motion, Non-tender, No pedal edema Musculoskeletal : Apperance: Normal Neurologic: Alert, script worker II-XII nml as Tested, No Motor Deficits, Normal Affect, Normal Mood, No Sensory Deficits Cerebellar Function: Normal Reflexes: Normal Skin: Dry, Normal Color, Warm Peripheral Pulses: 3+ Radial (R), 3+ Radial (L) Lymphatic: No Adenopathy Was a procedure done? Was a procedure done?: No GI differential Dx Differential Diagnosis: Constipation, Diverticular disease, Esophagitis, Gastritis/PUD, Gastroenteritis, Electrolyte Imbalance, Food Poisoning, Bacterial, Parasitic, Viral Other Differential Diagnosis Colitis X-Ray, Labs, Meds, VS Vital Signs Date Time Temp Pulse Resp B/P (MAP) Pulse Ox O2 Delivery O2 Flow Rate FiO2 08/10/24 10:10 97.4 77 18 110/60 (77) 99 97.4 Lab Test 08/10/24 10:28 08/10/24 10:15 Range/Units Urine Color Yellow Yellow Urine Clarity Clear Clear Urine pH 6.0 5.0-9.0 Urine Specific [place] 1.042 H 1.001-1.035 Urine Protein Trace H Negative Urine Ketones 1+ H Negative Urine Blood Negative Negative /uL Urine Nitrite Negative Negative Urine Bilirubin Negative Negative Urine Urobilinogen Normal Negative mg/dL Urine Leukocyte Esterase Negative Negative /uL Urine RBC None seen 0 - 3 /hpf Urine Microscopic WBC < 1 0-3 /HPF Urine Squamous Epithelial Cells None seen <5 /hpf Urine Bacteria None seen None Seen /hpf Urine Glucose 4+ H Normal mg/dL White Blood Count 2.8 L 4.4-10.8 10^3/uL Red Blood Count 4.54 4.5-5.90 10^6/uL Hemoglobin 13.8 13.5-17.5 g/dL Hematocrit 39.9 L 41.0-53.0 % Mean Corpuscular Volume 87.9 80.0-100.0 fL Mean Corpuscular Hemoglobin 30.5 28.0-32.0 pg Mean Corpuscular Hemoglobin Concent 34.7 32.0-36.0 g/dL Red Cell Distribution Width 13.2 11.8-14.3 % Platelet Count 162 140-450 10^3/uL Mean Platelet Volume 7.6 6.9-10.8 fL Neutrophils (%) (Auto) 68.2 37.0-80.0 % Lymphocytes (%) (Auto) 17.9 10.0-50.0 % Monocytes (%) (Auto) 11.9 0.0-12.0 % Eosinophils (%) (Auto) 1.6 0.0-7.0 % Basophils (%) (Auto) 0.4 0.0-2.0 % Neutrophils # (Auto) 1.9 1.6-8.6 10 ^3/uL Lymphocytes # (Auto) 0.5 0.4-5.4 10 ^3/uL Monocytes # (Auto) 0.3 0-1.3 10 ^3/uL Eosinophils # (Auto) 0 0-0.8 10 ^3/uL Basophils # (Auto) 0 0-0.2 10 ^3/uL Nucleated Red Blood Cells 0.1 % Sodium Level 138 136-145 mmol/L Potassium Level 3.4 L 3.5-5.1 mmol/L Chloride Level 105 98-107 mmol/L Carbon Dioxide Level 27 20-31 mmol/L Anion Gap 6 5-15 Blood Urea Nitrogen 17 9-23 mg/dL Creatinine 0.79 0.700-1.30 mg/dL Glomerular Filtration Rate Calc 103 >90 mL/min BUN/Creatinine Ratio 21.5 H 10.0-20.0 Serum Glucose 191 H 74-106 mg/dL Calcium Level 9.7 8.7-10.4 mg/dL Patient alert. Complaining of abdominal discomfort. Abdomen is soft nontender. Vitals stable. Chronic condition. Potassium is low. Was given potassium. Blood sugar slightly elevated. No sign any distress. No sepsis. No leg swelling. No shortness a breath. Possible gastroenteritis. Was given prescription of Flagyl. Explained to the patient. Was told to follow up with his primary care physician. Was told to come back if there is any problem. Time of 1ST Reevaluation: 10:49 Reevaluation 1ST: Improved Patient Education/Counseling: Diagnosis, Treatment, Prognosis Family Education/Counseling: No Family Present Departure 1 Departure Time of Disposition: 10:54 Impression: Primary Impression: Hypokalemia Additional Impressions: Uncontrolled diabetes mellitus Qualified Codes: E13.65 - Other specified diabetes mellitus with hyperglycemia Leukopenia Qualified Codes: D72.819 - Decreased white blood cell count, unspecified Gastroenteritis Disposition: 01 HOME / SELF CARE / HOMELESS Condition: Good e-Prescriptions Metronidazole (Flagyl) 500 Mg Tab 500 MG PO TID for 5 Days, #15 TAB Prov: DIANA MCKEON MD 08/10/24 Discharged With: Self Critical Care Note Critical Care Time?: No Stability Stability form required: No I personally scribed for DIANA MCKEON MD ([email or web address]) on 08/10/24 at 10:49. Electronically submitted by Soha Bee ([facility]). DIANA MCKEON MD Aug 10, 2024 10:49
[2024-08-10 10:50] LABS: Urine Bacteria None Seen /hpf (None Seen)
[2024-08-10 10:59] LABS: Urine Blood Negative /uL (Negative); Urine Clarity Clear (Clear); Urine Color Yellow (Yellow); Urine Protein, UAD TRACE (Negative); Urine Specific Gravity 1.042 (1.001-1.035); Urine Squamous Epithelial Cell None Seen /hpf (<5); Urine Urobilinogen Normal (Negative); Urine WBC < 1 /HPF (0-3)
[2024-08-10] MEDS ORDERED: METR-344 PO (11:42)
[2024-08-10] MEDS: POTASSIUM EFFERVESENT TAB 25 MEQ PO ONE (11:54)
[2024-08-10 11:55] VITALS: BP 106/65; PULSE 68; RESP 18; TEMP 97.7; O2SAT 97
== END 2024-08-10 11:59 | disposition home or self-care (01) ==
LOC: ER 09:42
DX: K52.9 Noninfective gastroenteritis and colitis, unspecified (principal); E87.6 Hypokalemia; E11.65 Type 2 diabetes mellitus with hyperglycemia; D72.819 Decreased white blood cell count, unspecified; Z79.899 Other long term (current) drug therapy
CPT/HCPCS: 36415; 80048; 81001; 85025

== ENCOUNTER → 2024-09-01 | Day surgery (SDC) | payer MEDICAID ==
[2024-08-30 10:25] LABS: Urine Bacteria None Seen /hpf (None Seen)
[2024-08-30 10:43] LABS: Basophils # (auto) 0 10 ^3/uL (0-0.2); Basophils % (auto) 0.5 % (0.0-2.0); Eosinophils # (auto) 0 10 ^3/uL (0-0.8); Eosinophils % (auto) 1.7 % (0.0-7.0); Hematocrit 38.6 % (41.0-53.0); Hemoglobin 13.3 g/dL (13.5-17.5); Lymphocytes # (auto) 0.5 10 ^3/uL (0.4-5.4); Lymphocytes % (auto) 21.5 % (10.0-50.0); Mean Corpuscular Hemoglobin 29.9 pg (28.0-32.0); Mean Corpuscular Hgb Conc. 34.5 g/dL (32.0-36.0); Mean Corpuscular Volume 86.7 fL (80.0-100.0); Monocytes # (auto) 0.4 10 ^3/uL (0-1.3); Monocytes % (auto) 16.2 % (0.0-12.0); Neutrophils # (auto) 1.4 10 ^3/uL (1.6-8.6); Neutrophils % (auto) 60.1 % (37.0-80.0); Nucleated Red Blood Cells % 0.1 %; Platelet Count (auto) 153 10^3/uL (140-450); Red Blood Cells 4.45 10^6/uL (4.5-5.90); Red Cell Distribution Width 13.3 % (11.8-14.3); White Blood Cell 2.3 10^3/uL (4.4-10.8)
[2024-08-30 10:50] LABS: INR 1.09 (0.9-1.15); Partial Thromboplastin Time 26.8 SEC (24.5-34.5); Prothrombin Time 11.5 sec (9.3-11.8)
[2024-08-30 10:53] LABS: Urine Blood Negative /uL (Negative); Urine Clarity Clear (Clear); Urine Color Yellow (Yellow); Urine Mucus FEW (None Seen); Urine Protein, UAD 1+ (Negative); Urine Specific Gravity 1.029 (1.001-1.035); Urine Squamous Epithelial Cell FEW /hpf (<5); Urine Urobilinogen Normal (Negative); Urine WBC 4 /HPF (0-3); Urine pH 6.5 (5.0-9.0)
[2024-08-30 11:00] LABS: Alanine Aminotransferase 12 U/L (7-40); Alkaline Phosphatase 73 U/L (46-116); Anion Gap 9 (5-15); Aspartate Aminotransferase 17 U/L (<34); BUN/Creatinine Ratio 29.3 (10.0-20.0); Blood Urea Nitrogen 22 mg/dL (9-23); Calcium 9.8 mg/dL (8.7-10.4); Carbon Dioxide 27 mmol/L (20-31); Chloride 103 mmol/L (98-107); Potassium 3.6 mmol/L (3.5-5.1); Sodium 139 mmol/L (136-145)
[2024-08-30 11:01] LABS: Bilirubin, Total 0.5 mg/dL (0.2-1.0)
[2024-08-30 11:03] LABS: Glucose 174 mg/dL (74-106)
[~2024-09-01] VITALS: Ht 170.2 cm; Wt 52.6 kg
[~2024-09-01] MED LIST changes: +AZIT200S47 PO; +BACDST PO; +BICT1TAB PO; +DexAMETHasone SOD PHOS 10MG/1ML VIAL INJ ONE; -LEVO500T91 PO; +METF-371 PO; -METR-344 PO; +MIDAZOLAM HCL 2MG/2ML 2ml VIAL (1mg/ml) ONE; +PROPOFOL 10 MG/ML 20 ML IV ONE; +fentaNYL CITRATE 100 MCG/2 ML VL ONE
[2024-09-01] MEDS: LIDOCAINE VISCOUS 2% 15ML UD ONE (09:20)
--- NOTE | 2024-09-01 10:12 | DVHOP2 ---
Operative Report DATE OF OPERATION: 09/01/24 PROCEDURE: Upper Endoscopy with biopsy. PREOPERATIVE INDICATION: The patient is a 58 -year-old male undergoing endoscopy for weight loss and dyspepsia POSTOPERATIVE DIAGNOSES: 1. Patient had a 1-2 cm sliding-type hiatal hernia but he had severe esophagitis extending throughout the length of the esophagus which was highly suspicious for candidal esophagitis with whitish yellowish plaques that were sloughing off more prominent in the distal esophagus but also extending into the proximal esophagus and there was also oral thrush 2. Gastritis otherwise normal examination up to the 2nd and 3rd part of the duodenum PROCEDURE PERFORMED BY: Blayne Davis GI NURSE: Lauren SCOPE: Olympus videoendoscope. ASA CLASS: 3 PREOPERATIVE MEDICATIONS: Mac sulaiman, Dr. Mckay PROCEDURE IN DETAIL: After obtaining an informed consent, the patient was placed on left lateral decubitus position. The patient was then sedated with the above medications. A bite block was placed between his teeth. The endoscope was then passed through the oropharynx, into the esophagus, and through the stomach and pylorus up to the second and third part of the duodenum. The endoscope was then withdrawn. The 2nd and 3rd part of the duodenum and the duodenal bulb were normal. Duodenal biopsies were obtained. The pre-pyloric area antrum and body showed minimal gastritis. Gastric biopsies were obtained. On retroflexion the fundus cardia and angularis were normal. The endoscope was then withdrawn into the distal esophagus. And had 1-2 cm sliding-type hiatal hernia with severe esophagitis extending throughout the neck of the esophagus There was yellowish whitish plaques were sloughing off more prominent in the distal esophagus Esophageal biopsies were obtained. The proximal esophagus was normal and there was oral thrush in the posterior pharynx The patient tolerated the procedure well without difficulty. COMPLICATIONS : None SPECIMENS: Duodenal Biopsies Gastric biopsies Esophagus biopsies DISPOSITION: Stable D/C to home PLAN: 1. Await for biopsy result 2. Will place pt on Protonix 40 mg p.o. daily 3. Nystatin swish and swallow 5 mL p.o. three times a day for 20 days 4. Resume GI soft diet advance as tolerated BLAYNE DAVIS MD Sep 01, 2024 10:12
--- NOTE | 2024-09-01 10:15 | DVHOP2 ---
Operative Report DATE OF OPERATION: 09/01/24 PROCEDURE: Colonoscopy with biopsy. PREOPERATIVE INDICATION: The patient is a 58 -year-old male undergoing colonoscopy for change in bowel habits and colon cancer screening POSTOPERATIVE DIAGNOSES: 1. 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 Trace internal hemorrhoids otherwise completely normal colonoscopy examinat ion up to the cecum and terminal ileum PROCEDURE PERFORMED BY: Blayne Davis M.D. SCOPE: Olympus videocolonoscope. ASA CLASS: 3 PREOPERATIVE MEDICATIONS: Sedation, Dr. Mckay PROCEDURE IN DETAIL: After obtaining an informed consent, the patient was placed on left lateral decubitus position. He was then sedated with the above medications. A rectal examination was performed that was normal. The colonoscope was then passed through the anus into the rectosigmoid and through the descending, transverse, and ascending colon up to the cecum with visualization of the appendiceal orifice, base of the cecum and the ileocecal valve. The colonoscope was then withdrawn. The distal 5-10 cm of the terminal ileum were normal No polyps or masses were seen. There was no clear-cut diverticular disease. Patient had mild proctosigmoiditis extending up to 25 cm above the anal verge There was hyperemia erythema and mucosal edema. Biopsies were obtained. On retroflexion patient had trace to 1+ internal hemorrhoids The patient tolerated the procedure well without difficulty. WITHDRAWAL TIME: 7 minutes QUALITY OF THE PREP: Hardwick Bowel Prep score: 9. COMPLICATIONS : None SPECIMENS: Rectosigmoid biopsies DISPOSITION: Stable D/C to home PLAN: 1. Repeat colonoscopy base on biopsy result likely in 5-7 years 2. Resume GI soft diet advance as tolerated 3. Local anorectal hemorrhoidal care 4. Management of proctosigmoiditis depending on her symptom BLAYNE DAVIS MD Sep 01, 2024 10:15
[2024-09-01 10:45] VITALS: BP 117/71; PULSE 75; RESP 13; O2SAT 98
== END | disposition home or self-care (01) ==
LOC: EDUNIT# → SUR 08:23
PROVIDERS: ATTEND Internal Medicine Gastroenterology
DX: R19.4 Change in bowel habit (principal); K29.50 Unspecified chronic gastritis without bleeding; B37.81 Candidal esophagitis; B37.0 Candidal stomatitis; K44.9 Diaphragmatic hernia without obstruction or gangrene; K63.89 Other specified diseases of intestine; K64.8 Other hemorrhoids; Z79.899 Other long term (current) drug therapy; B20 Human immunodeficiency virus [HIV] disease; E11.9 Type 2 diabetes mellitus without complications; Z79.84 Long term (current) use of oral hypoglycemic drugs
CPT/HCPCS: 36415; 43239; 45380; 80053; 81001; 82962; 85025; 85610; 85730; 88305; 88312; 88342; J1100; J2250; J2704; J3010; J7030

== ENCOUNTER 2024-09-14 18:24 | Inpatient (IN) | payer MEDICAID ==
[~2024-09-14] VITALS: Ht 170.2 cm; Wt 53.6 kg
[~2024-09-14 18:24] MED LIST changes: -DexAMETHasone SOD PHOS 10MG/1ML VIAL INJ ONE; -MIDAZOLAM HCL 2MG/2ML 2ml VIAL (1mg/ml) ONE; -PROPOFOL 10 MG/ML 20 ML IV ONE; -fentaNYL CITRATE 100 MCG/2 ML VL ONE
--- NOTE | 2024-09-14 18:54 | ECG ---
[facility] Test Date: 2024-09-14 Test Time: 18:52:33 Pat Name: CRISTIAN JOHNSON Department: ER Room: Gender: M [employer]anner: ER : 1965 Requested By: SHADE WHARTON Order Number: [id number] Reading MD: Moreno Guerrero Measurements Intervals [place] Rate: 85 P: 79 OR: 140 QRS: -61 QRSD: 92 T: 74 QT: 333 QTc: 396 Interpretive Statements Sinus rhythm Left anterior fascicular block Borderline T wave abnormalities Electronically Signed On 09-14-2024 19:10:23 PDT by Moreno Guerrero Please click the below link to view image of tracing.
[2024-09-14 19:46] LABS: Alanine Aminotransferase 28 U/L (7-40); Alkaline Phosphatase 75 U/L (46-116); Calcium 9.4 mg/dL (8.7-10.4); Carbon Dioxide 24 mmol/L (20-31); Chloride 101 mmol/L (98-107)
[2024-09-14 19:47] LABS: Albumin 3.9 g/dL (3.2-4.8); Anion Gap 11 (5-15); BUN/Creatinine Ratio 24.0 (10.0-20.0); Bilirubin, Total 0.5 mg/dL (0.2-1.0); Blood Urea Nitrogen 25 mg/dL (9-23); Glucose 136 mg/dL (74-106); Potassium 3.2 mmol/L (3.5-5.1); Sodium 136 mmol/L (136-145); Total Protein 6.7 g/dL (5.7-8.2)
[2024-09-14 19:48] LABS: Hematocrit 37.5 % (41.0-53.0); Hemoglobin 13.2 g/dL (13.5-17.5); Mean Corpuscular Hemoglobin 30.1 pg (28.0-32.0); Mean Corpuscular Volume 85.3 fL (80.0-100.0)
--- NOTE | 2024-09-14 19:51 | DVH ---
CHEST RADIOGRAPH Indication: R parasternal chest pain Technique: Single frontal view of the chest was obtained Comparison: None FINDINGS: Lines and Tubes: None Lungs: No focal consolidation. Skin fold artifact over the left lateral mid and lower lung zone. Pleura: No effusion. No pneumothorax. Cardiomediastinal contours: Unremarkable Bones: No acute osseous abnormality. IMPRESSION: No acute cardiopulmonary disease.
[2024-09-14 19:59] LABS: Lipase 56 U/L (12-53)
[2024-09-14 20:07] LABS: RBC Morphology Normal; Total Cells Counted 100.0 (100)
[2024-09-14] MEDS: SODIUM CHLORIDE 0.9% 2,000 ML IV ONE (20:11)
[2024-09-14] MEDS: ONDANSETRON HCL 4 MG/2 ML VIAL IV ONE (20:15)
[2024-09-14] MEDS: LIDOCAINE VISCOUS 2% 15ML UD PO ONE (20:15)
[2024-09-14] MEDS: SUCRALFATE 1 GM/10 ML ORAL SUSP PO ONE (20:23)
[2024-09-14] MEDS: DONNATAL 5ml ORAL Elix (BELLADONNA ALK-PHENOBARB) PO ONE (20:24)
--- NOTE | 2024-09-14 22:14 | ED.PDOC ---
History of Present Illness HPI Comments 58-year-old male with a history of diabetes and HIV brought in by family complaining of right parasternal chest pain. The patient states pain is sharp and pressure-like, and has been going on for the past week but worse over the past 2 days. He states the pain is severe whenever he drinks liquids or eats food so has had severely decreased oral intake over the past week. He reports nausea and vomiting. He denies fever, diarrhea, constipation or dysuria. Chief Complaint: Chest Pain Time Seen by MD: 18:53 Primary Care Provider: VICKI Allergies: Coded Allergies: NO KNOWN ALLERGIES (Unverified , 07/03/24) Home Meds Reported Medications Metformin Hydrochloride (Metformin Hcl) 850 Mg Tab, 850 MG PO, TAB 08/30/24 Hkrjzbkemhg-Kiwxncnvesogt-Ywmh (Biktarvy 50-200-25 mg) 1 Tab Tab, 1 TAB PO QAM, TAB 08/30/24 Azithromycin (Azithromycin) 200 Mg/5 Ml Susi, 600 MG PO, ML 08/30/24 Sulfamethoxazole W/Trimethopri (Bactrim Ds Tablet) 1 Tab Tb, 1 TAB PO BID, TAB 08/30/24 Information Source: Patient Mode of Arrival: Wheelchair Past Medical History PAST MEDICAL HISTORY: DM Past Medical History (Other): HIV Surgical History (Other): Spine surgery Family History Family History: Reviewed,noncontributory to illness Social History Smoker: Non-Smoker Alcohol: Denies ETOH Use Drugs: Denies Drug Use Lives In: Home All Other Systems: Reviewed and Negative (Comprehensive systems review obtained and negative except for what is stated in the HPI.) Physical Exam General Appearance: Mild Distress, Thin HEENT: Other (Pupils and face symmetric. Moist mucous membranes.) Neck: Full Range of Motion, Normal Inspection Respiratory: Lungs Clear, No Accessory Muscle Use, No Respiratory Distress, Normal Breath Sounds, Other (Palpation of the right parasternal chest area somewhat reproduces the pain) Cardiovascular: No Edema, No JVD, Regular Rate/Rhythm Breast Exam: Deferred Gastrointestinal: Non Tender, Soft Genitalia: Deferred Pelvic: Deferred Rectal: Deferred Extremities: Normal inspection, Normal range of motion, Non-tender, No pedal edema Neurologic: Alert (Oriented x4), Normal Affect, Normal Mood, Other (Ambulatory) Cerebellar Function: NOT DONE Reflexes: NOT DONE Skin: Dry, Normal Color, Warm Lymphatic: NOT DONE Was a procedure done? Was a procedure done?: No EKG EKG : Comments Sinus rhythm, rate 85, normal intervals, normal axis, normal QRS, left anterior fascicular block, nonspecific T change. Differential Dx Considerations may include: Esophagitis, esophageal spasm, esophageal motility disorder, GERD, ACS, AR, arrhythmia, chest wall pain, among others X-Ray, Labs, Meds, VS Vital Signs Date Time Temp Pulse Resp B/P (MAP) Pulse Ox O2 Delivery O2 Flow Rate FiO2 09/14/24 19:48 98.4 80 18 102/65 (77) 98 98.4 09/14/24 19:45 Room Air* 0 21 09/14/24 18:52 85 09/14/24 18:42 97.8 96 18 85/47 (60) 100 97.8 Lab Test 09/14/24 19:57 09/14/24 18:55 Range/Units Troponin I High Sensitivity 3 L 3 L </=54 ng/L White Blood Count 2.5 L 4.4-10.8 10^3/uL Red Blood Count 4.39 L 4.5-5.90 10^6/uL Hemoglobin 13.2 L 13.5-17.5 g/dL Hematocrit 37.5 L 41.0-53.0 % Mean Corpuscular Volume 85.3 80.0-100.0 fL Mean Corpuscular Hemoglobin 30.1 28.0-32.0 pg Mean Corpuscular Hemoglobin Concent 35.3 32.0-36.0 g/dL Red Cell Distribution Width 13.5 11.8-14.3 % Platelet Count 189 140-450 10^3/uL Mean Platelet Volume 7.6 6.9-10.8 fL Neutrophils (%) (Auto) 37.0-80.0 % Lymphocytes (%) (Auto) 10.0-50.0 % Monocytes (%) (Auto) 0.0-12.0 % Basophils (%) (Auto) 0.0-2.0 % Neutrophils # (Auto) 1.6-8.6 10 ^3/uL Lymphocytes # (Auto) 0.4-5.4 10 ^3/uL Monocytes # (Auto) 0-1.3 10 ^3/uL Differential Total Cells Counted 100.0 100 Neutrophils % (Manual) 66 37.0-80.0 Band Neutrophils % (Manual) 2 Lymphocytes % (Manual) 20 10.0-50.0 Monocytes % (Manual) 11 0-12 Eosinophils % (Manual) 1 0-7 Basophils % (Manual) 0 0.0-2.0 Metamyelocytes % (manual) 0 Myelocytes % (Manual) 0 Promyelocytes % (Manual) 0 Blast Cells % (Manual) 0 Reactive Lymphocytes 0 Platelet Estimate Adequate Red Blood Cell Morphology Normal Sodium Level 136 136-145 mmol/L Potassium Level 3.2 L 3.5-5.1 mmol/L Chloride Level 101 98-107 mmol/L Carbon Dioxide Level 24 20-31 mmol/L Anion Gap 11 5-15 Blood Urea Nitrogen 25 H 9-23 mg/dL Creatinine 1.04 0.700-1.30 mg/dL Glomerular Filtration Rate Calc 83 >90 mL/min BUN/Creatinine Ratio 24.0 H 10.0-20.0 Serum Glucose 136 H 74-106 mg/dL Calcium Level 9.4 8.7-10.4 mg/dL Total Bilirubin 0.5 0.2-1.0 mg/dL Aspartate Amino Transferase (AST) 25 13-40 U/L Alanine Aminotransferase (ALT) 28 7-40 U/L Alkaline Phosphatase 75 46-116 U/L B-Type Natriuretic Peptide 18.45 0-100 pg/mL Total Protein 6.7 5.7-8.2 g/dL Albumin 3.9 3.2-4.8 g/dL Lipase 56 H 12-53 U/L Current Medications Medications (Trade) Dose Ordered Sig/Berto Route Start Time Stop Time Status Last Admin Lidocaine HCl (Xylocaine 2% Viscous) 10 ml ONCE ONCE PO 09/14/24 19:30 09/14/24 19:31 DC 09/14/24 20:15 Belladonna Alkaloids/ Phenobarbital ( Elixir) 10 ml ONCE ONCE PO 09/14/24 19:30 09/14/24 19:31 DC 09/14/24 20:24 Sucralfate (Carafate Susp) 1 gm ONCE ONCE PO 09/14/24 19:30 09/14/24 19:31 DC 09/14/24 20:23 Ondansetron HCl (Zofran) 4 mg ONCE ONCE IV 09/14/24 19:30 09/14/24 19:31 DC 09/14/24 20:15 Sodium Chloride 2,000 ml @ 1,000 mls/hr Q2H ONCE IV 09/14/24 19:30 09/14/24 21:29 DC 09/14/24 20:11 PROCEDURE(s): CXR1 - CHEST XRAY 1 VIEW REASON: R parasternal chest pain ORDER NUMBER(s): [id number], ACCESSION NUMBER(s): [id number] CHEST RADIOGRAPH Indication: R parasternal chest pain Technique: Single frontal view of the chest was obtained Comparison: None FINDINGS: Lines and Tubes: None Lungs: No focal consolidation. Skin fold artifact over the left lateral mid and lower lung zone. Pleura: No effusion. No pneumothorax. Cardiomediastinal contours: Unremarkable Bones: No acute osseous abnormality. IMPRESSION: No acute cardiopulmonary disease. X-Ray, Labs, Meds, VS Comment 58-year-old male with a history of diabetes and HIV complaining of right parasternal chest pain which is worse after eating and drinking, and associated with nausea and vomiting Review of records here show the patient underwent EGD on 09/01/[address] Davis, which showed severe esophagitis suspicious for candidal esophagitis, hiatal hernia and gastritis. Vitals remarkable for initial blood pressure 85/47 Exam remarkable for reproducible pain when palpating the right parasternal area Rhythm strip independently interpreted by me: Sinus rhythm, rate 85, no ectopy. Chest x-ray unremarkable CBC remarkable for WBC 2.5, CMP remarkable for potassium 3.2, BUN 25, lipase 56, BNP and 2 serial troponins unremarkable Patient treated with the following in the ED: 1 L 0.9 normal saline IV bolus, Zofran 4 mg IV, viscous lidocaine 10 mL, 10 mL, Carafate 1 g p.o., effervescent potassium 50 mEq p.o. On re-evaluation, patient was still experiencing discomfort since he had not yet been medicated. Plan is to admit the patient for electrolyte correction, IV hydration, emesis control and GI re-evaluation. Time of 1ST Reevaluation: 22:12 Reevaluation 1ST: Unchanged Patient Education/Counseling: Diagnosis, Treatment, Need For Follow Up Family Education/Counseling: No Family Present SEPSIS Sepsis Screen Date sepsis recognized/suspect: Sep 14, 2024 Time Sepsis recognized/suspect: 1947 Recent Procedure: No On Antibiotic Therapy: No Respiratory Rate >20: No Heart Rate >90: No Temp<36 C (96.8 F) or >38.3 C: No SBP <90 or MAP <65 mmHG: No New Acute Mental Status Change: No Is the patient on CPAP, BIPAP,: No SEPSIS EXCLUSION NOTE: Sepsis Exclusion Note: Patient presents with SIRS criteria, but the SIRS response is attributed to [hypovolemia/dehydration ], not a suspected infection. Sepsis bundle is not initiated at this time, due to this reason. Further management will focus on the treatment of the above condition (s). Physician Orders Electrocardigram (09/14/24 18:26) Urinalysis (09/14/24 19:25) Chest Xray 1 View (09/14/24 19:25) Vital Signs Date Time Temp Pulse Resp B/P (MAP) Pulse Ox O2 Delivery O2 Flow Rate FiO2 09/14/24 19:48 98.4 80 18 102/65 (77) 98 98.4 09/14/24 19:45 Room Air* 0 21 09/14/24 18:52 85 09/14/24 18:42 97.8 96 18 85/47 (60) 100 97.8 Laboratory Tests Test 09/14/24 18:55 White Blood Count 2.5 10^3/uL (4.4-10.8) L Medications Medications Dose Ordered Sig/Berto Route Start Time Stop Time Status Last Admin Dose Admin Belladonna Alkaloids/ Phenobarbital 10 ml ONCE ONCE PO 09/14/24 19:30 09/14/24 19:31 DC 09/14/24 20:24 Lidocaine HCl 10 ml ONCE ONCE PO 09/14/24 19:30 09/14/24 19:31 DC 09/14/24 20:15 Ondansetron HCl 4 mg ONCE ONCE IV 09/14/24 19:30 09/14/24 19:31 DC 09/14/24 20:15 Sodium Chloride 2,000 ml @ 1,000 mls/hr Q2H ONCE IV 09/14/24 19:30 09/14/24 21:29 DC 09/14/24 20:11 Sucralfate 1 gm ONCE ONCE PO 09/14/24 19:30 09/14/24 19:31 DC 09/14/24 20:23 Departure 1 Departure Time of Disposition: 22:12 Impression: Primary Impression: Esophagitis Additional Impressions: Leukopenia Qualified Codes: D72.819 - Decreased white blood cell count, unspecified Hypokalemia Dehydration Disposition: ADMITTED INPATIENT Admit to: Med Surg Condition: Guarded Critical Care Note Critical Care Time?: No Stability Stability form required: No Heart Score Heart Score: Heart Score Response (Comments) Value History Slightly Suspicious 0 EKG Repolarization Disturb 1 Age 45-64 1 Risk Factors 1 or 2 risk factors 1 Troponin Normal limit 0 Total 3 SAMANTHA ORTEGA MD Sep 14, 2024 22:14
[2024-09-14] MEDS ORDERED: ONDANSETRON HCL 4 MG/2 ML VIAL IV PRN (22:45)
[2024-09-14] MEDS ORDERED: DOCUSATE SOD 100 MG CAP PO PRN (22:45)
[2024-09-14] MEDS ORDERED: DEXTROSE (50%) 50ML SYRG IV PRN (22:45)
[2024-09-14] MEDS: SODIUM CHLORIDE 0.9% 1,000 ML IV SCH (23:05)
[2024-09-14] MEDS: POTASSIUM EFFERVESENT TAB 25 MEQ PO ONE (23:08)
--- NOTE | 2024-09-14 23:27 | DVHHP2 ---
History of Present Illness Reason for Visit: Acute chest pain History of Present Illness The patient is a 58-year-old male with past medical history of HIV and diabetes mellitus who presented to [facility] ED with complaint of right substernal chest pain. Patient reports he has been experiencing chest pain described as sharp, pressure-like, worse with activity for the past 2 weeks. He reports the pain is severe whenever he drinks liquid or eats food so has had severely decreased oral intake over the past week, associated nausea, vomiting. Patient was seen and evaluated in the ED, laboratory data shows WBC 2.5, platelets 189, sodium 136, potassium 3.2, BUN 25, creatinine 1.04, glucose 136, lipase 56, troponin 3, BNP 18.45, blood pressure 102/65, heart rate 80, temperature 98.4 F, O2 saturation 98% on room air. Chest x-ray show no acute cardiopulmonary disease. Please see medication orders section in the computer. On my assessment, patient denied chest pain, no headache, no dizziness, no shortness of breaths, no nausea, no vomiting, no fever, no chills. Patient was admitted for further evaluation and medical management. Past Medical History DM, HIV Past Surgical History Spine surgery Family History Reviewed, noncontributory to the management of this case. Past Social History The patient lives at home, denies smoking, alcohol or illicit drugs abuse. Review of Systems Constitutional: No: Fever, Chills, Sweats, Weakness, Malaise, Other Eyes: No: Pain, Vision change, Conjunctivae inflammation, Eyelid inflammation, Other, Redness ENT: No: Ear pain, Ear discharge, Nose pain, Nose discharge, Nose congestion, Mouth pain, Mouth swelling, Throat pain, Throat swelling, Other Respiratory: No: Cough, Dry, Shortness of breath, SOB with excertion, Wheezing, Hemoptysis, Pleuritic Pain, Sputum, Wheezing, Other Cardiovascular: Chest Pain; No: Palpitations, Orthopnea, Paroxysmal Noc. Dyspnea, Edema, Lt Headedness, Other Gastrointestinal: Nausea, Vomiting; No: Abdominal Pain, Diarrhea, Constipation, Melena, Hematochezia, Other Genitourinary: No Dysuria, No Frequency, No Incontinence, No Hematuria, No Retention, No Other Musculoskeletal: No: other, neck pain, shoulder pain, arm pain, back pain, hand pain, leg pain, foot pain Skin: No: Rash, Lesions, Jaundice, Bruising, Other Neurological: No: Weakness, Numbness, Incoordination, Change in speech, Confusion, Seizures, Other Allergies: Coded Allergies: NO KNOWN ALLERGIES (Unverified , 07/03/24) Medications Current Medications Medications Dose Ordered Sig/Berto Route Start Time Stop Time Status Last Admin Dose Admin Aspirin 81 mg DAILY PO 09/15/24 10:00 Diagnostic Test (Pha) 1 strip ACHS 09/15/24 07:00 Insulin Human Regular ACHS SC 09/15/24 07:00 Dextrose 50 ml UD PRN IV 09/14/24 22:45 Sodium Chloride 1,000 ml @ 60 mls/hr [id number] IV 09/14/24 22:45 09/14/24 23:05 60 MLS/HR Acetaminophen/ Hydrocodone Bitart 1 tab Q4HP PRN PO 09/14/24 22:45 Ondansetron HCl 4 mg Q4HP PRN IV 09/14/24 22:45 Docusate Sodium 100 mg BIDPRN PRN PO 09/14/24 22:45 Acetaminophen 650 mg Q6HP PRN PO 09/14/24 22:45 Exam Vital Signs Vital Signs Date Time Temp Pulse Resp B/P (MAP) Pulse Ox O2 Delivery O2 Flow Rate FiO2 09/14/24 22:29 76 09/14/24 19:48 98.4 18 102/65 (77) 98 98.4 09/14/24 19:45 Room Air* 0 21 General Appearance: Alert, Oriented X3, Cooperative, No acute distress HEENT: Atraumatic, PERRLA, EOMI, Mucous membr. moist/pink Respiratory: Normal air movement Cardiovascular: Regular rate, Normal S1, Normal S2, No murmurs Abdominal: Normal bowel sounds, Soft, No tenderness, No hepatospenomegaly, No masses Extremities: No clubbing, No cyanosis, No edema, Normal pulses, No tenderness/swelling Skin: No rashes, No significant lesion Neuro: Normal gait, Normal speech, Normal tone, Sensation intact, Cranial nerves 3-12 NL, Reflexes 2+ Psych/Mental Status: Mental status NL, Mood NL Labs/Xrays Labs Test 09/14/24 19:57 09/14/24 18:55 Range/Units Troponin I High Sensitivity 3 L </=54 ng/L White Blood Count 2.5 L 4.4-10.8 10^3/uL Red Blood Count 4.39 L 4.5-5.90 10^6/uL Hemoglobin 13.2 L 13.5-17.5 g/dL Hematocrit 37.5 L 41.0-53.0 % Mean Corpuscular Volume 85.3 80.0-100.0 fL Mean Corpuscular Hemoglobin 30.1 28.0-32.0 pg Mean Corpuscular Hemoglobin Concent 35.3 32.0-36.0 g/dL Red Cell Distribution Width 13.5 11.8-14.3 % Platelet Count 189 140-450 10^3/uL Mean Platelet Volume 7.6 6.9-10.8 fL Neutrophils (%) (Auto) 37.0-80.0 % Lymphocytes (%) (Auto) 10.0-50.0 % Monocytes (%) (Auto) 0.0-12.0 % Basophils (%) (Auto) 0.0-2.0 % Neutrophils # (Auto) 1.6-8.6 10 ^3/uL Lymphocytes # (Auto) 0.4-5.4 10 ^3/uL Monocytes # (Auto) 0-1.3 10 ^3/uL Differential Total Cells Counted 100.0 100 Neutrophils % (Manual) 66 37.0-80.0 Band Neutrophils % (Manual) 2 Lymphocytes % (Manual) 20 10.0-50.0 Monocytes % (Manual) 11 0-12 Eosinophils % (Manual) 1 0-7 Basophils % (Manual) 0 0.0-2.0 Metamyelocytes % (manual) 0 Myelocytes % (Manual) 0 Promyelocytes % (Manual) 0 Blast Cells % (Manual) 0 Reactive Lymphocytes 0 Platelet Estimate Adequate Red Blood Cell Morphology Normal Sodium Level 136 136-145 mmol/L Potassium Level 3.2 L 3.5-5.1 mmol/L Chloride Level 101 98-107 mmol/L Carbon Dioxide Level 24 20-31 mmol/L Anion Gap 11 5-15 Blood Urea Nitrogen 25 H 9-23 mg/dL Creatinine 1.04 0.700-1.30 mg/dL Glomerular Filtration Rate Calc 83 >90 mL/min BUN/Creatinine Ratio 24.0 H 10.0-20.0 Serum Glucose 136 H 74-106 mg/dL Calcium Level 9.4 8.7-10.4 mg/dL Total Bilirubin 0.5 0.2-1.0 mg/dL Aspartate Amino Transferase (AST) 25 13-40 U/L Alanine Aminotransferase (ALT) 28 7-40 U/L Alkaline Phosphatase 75 46-116 U/L B-Type Natriuretic Peptide 18.45 0-100 pg/mL Total Protein 6.7 5.7-8.2 g/dL Albumin 3.9 3.2-4.8 g/dL Lipase 56 H 12-53 U/L PATIENT: CRISTIAN JOHNSON ACCT: [id number] UNIT: [id number] : 1965 LOC: ER ROOM / BED: / AGE / SEX: 58 / M ADM STATUS: REG ER SERVICE 24 ORDERING PHYSICIAN: SAMANTHA ORTEGA MD PROCEDURE(s): CXR1 - CHEST XRAY 1 VIEW REASON: R parasternal chest pain ORDER NUMBER(s): [id number], ACCESSION NUMBER(s): [id number] CHEST RADIOGRAPH Indication: R parasternal chest pain Technique: Single frontal view of the chest was obtained Comparison: None FINDINGS: Lines and Tubes: None Lungs: No focal consolidation. Skin fold artifact over the left lateral mid and lower lung zone. Pleura: No effusion. No pneumothorax. Cardiomediastinal contours: Unremarkable Bones: No acute osseous abnormality. IMPRESSION: No acute cardiopulmonary disease. SEPSIS Sepsis Screen Date sepsis recognized/suspect: Sep 14, 2024 Time Sepsis recognized/suspect: 1947 Recent Procedure: No On Antibiotic Therapy: No Respiratory Rate >20: No Heart Rate >90: No Temp<36 C (96.8 F) or >38.3 C: No SBP <90 or MAP <65 mmHG: No New Acute Mental Status Change: No Is the patient on CPAP, BIPAP,: No Physician Orders Electrocardigram (09/14/24 18:26) Urinalysis (09/14/24 19:25) Chest Xray 1 View (09/14/24 19:25) Consistent Carb(Ccho)Diabetes (09/15/24 Breakfast) Aspirin Tablet (09/15/24 10:00) Glucose Blood (Accu-Chek Comfort Curve T (09/15/24 07:00) Insulin R (Human) (Insulin R) (09/15/24 07:00) Dextrose 50% Syringe (09/14/24 22:45) Allergies (09/14/24 22:31) Code Status (09/14/24 22:31) Sodium Chloride 0.9% (09/14/24 22:45) Oxygen Per Hour (09/14/24 22:31) Hydrocodone-Acet 5/325mg Tab ([place]anett 5/32 (09/14/24 22:45) Ondansetron Hcl (Zofran) (09/14/24 22:45) Docusate Sodium Capsule (Colace Capsule) (09/14/24 22:45) Complete Blood Count (09/15/24 04:00) Comprehensive Metabolic Panel (09/15/24 04:00) Condition: Serious (09/14/24 22:31) Acetaminophen Tablet (Tylenol Tablet) (09/14/24 22:45) Bedrest With Bathroom Privileg (09/14/24 22:31) Sequential Compression Device (09/14/24 ) Admit (09/14/24 23:26) Nitroglycerin Sublingual (Ntrostat Subli (09/14/24 23:30) Morphine Sulfate Injection (09/14/24 23:30) Vital Signs Date Time Temp Pulse Resp B/P (MAP) Pulse Ox O2 Delivery O2 Flow Rate FiO2 09/14/24 22:29 76 09/14/24 19:48 98.4 80 18 102/65 (77) 98 98.4 09/14/24 19:45 Room Air* 0 21 09/14/24 18:52 85 09/14/24 18:42 97.8 96 18 85/47 (60) 100 97.8 Laboratory Tests Test 09/14/24 18:55 White Blood Count 2.5 10^3/uL (4.4-10.8) L Medications Medications Dose Ordered Sig/Berto Route Start Time Stop Time Status Last Admin Dose Admin Belladonna Alkaloids/ Phenobarbital 10 ml ONCE ONCE PO 09/14/24 19:30 09/14/24 19:31 DC 09/14/24 20:24 10 ML Lidocaine HCl 10 ml ONCE ONCE PO 09/14/24 19:30 09/14/24 19:31 DC 09/14/24 20:15 10 ML Ondansetron HCl 4 mg ONCE ONCE IV 09/14/24 19:30 09/14/24 19:31 DC 09/14/24 20:15 4 MG Potassium Bicarbonate 50 meq ONCE ONCE PO 09/14/24 22:30 09/14/24 22:31 DC 09/14/24 23:08 50 MEQ Sodium Chloride 1,000 ml @ 60 mls/hr [id number] IV 09/14/24 22:45 09/14/24 23:05 60 MLS/HR Sodium Chloride 2,000 ml @ 1,000 mls/hr Q2H ONCE IV 09/14/24 19:30 09/14/24 21:29 DC 09/14/24 20:11 1,000 MLS/HR Sucralfate 1 gm ONCE ONCE PO 09/14/24 19:30 09/14/24 19:31 DC 09/14/24 20:23 1 GM Assessment/Plan Assessment/Plan Chest pain Esophagitis Hypokalemia Dehydration Leukopenia Decreased white blood cell count, unspecified Plan 1. Admit to telemetry unit 2. Breathing treatment 3. Pain control management 4. Management of fluids and electrolytes 5. Consultation for hospitalist 6. Diagnostic tests chest x-ray 7. DVT prophylaxis on aspirin 8. Repeat labs CBC, CMP in a.m. 9. Continue with current medical management 10. Treatment plan discussed with patient and RN. Patient verbalized understanding. Plan discussed with: Patient, Other (RN) My Orders Orders - KATHRYN SANCHEZ DNP Procedure Category Date Status Time Consistent DIET 09/15/24 Transmitted Carb(Ccho)Diabetes Breakfast Aspirin Tablet PHA 09/15/24 In Process 10:00 Glucose Blood PHA 09/15/24 In Process (Accu-Chek Comfort 07:00 Insulin R (Human) PHA 09/15/24 In Process (Insulin R) 07:00 Dextrose 50% Syringe PHA 09/14/24 In Process 22:45 Allergies ALEYDA 09/14/24 In Process 22:31 Code Status CODE 09/14/24 Transmitted 22:31 Sodium Chloride 0.9% PHA 09/14/24 In Process 22:45 Oxygen Per Hour RT 09/14/24 Transmitted 22:31 Hydrocodone-Acet PHA 09/14/24 In Process 5/325mg Tab ([place]anett 22:45 Ondansetron Hcl PHA 09/14/24 In Process (Zofran) 22:45 Docusate Sodium PHA 09/14/24 In Process Capsule (Colace 22:45 Complete Blood Count LAB 09/15/24 Verified 04:00 Comprehensive LAB 09/15/24 Verified Metabolic Panel 04:00 Condition: Serious ALEYDA 09/14/24 In Process 22:31 Acetaminophen Tablet [facility] 09/14/24 In Process (Tylenol Tablet) 22:45 Bedrest With Bathroom ALEYDA 09/14/24 In Process Privileg 22:31 Sequential ALEYDA 09/14/24 In Process Compression Device Admit ADMIT 09/14/24 Verified 23:26 Nitroglycerin [facility] 09/14/24 Verified Sublingual (Ntrostat 23:30 Morphine Sulfate [facility] 09/14/24 Verified Injection 23:30 Problem List: (1) Chest pain (2) Esophagitis (3) Dehydration (4) Leukopenia (5) Hypokalemia (6) Decreased white blood cell count, unspecified Date of Service: Sep 14, 2024 Billing Provider: KATHRYN SANCHEZ DNP Common Visit Codes: [id number] INP/OBS CARE (HIGH) KATHRYN SANCHEZ DNP Sep 14, 2024 23:27
[2024-09-14] MEDS ORDERED: NITROGLYCERIN 0.4 MG SL TAB SL PRN (23:30)
[2024-09-14] MEDS ORDERED: MORPHINE SULFATE INJ 2 MG/ml SYRG IV PRN (23:30)
[2024-09-15 00:12] LABS: Urine Protein, UAD 1+ (Negative)
[2024-09-15] MEDS: POTASSIUM CHL 20MEQ/100ML 100 ML IV ONE (02:42)
[2024-09-15] MEDS: HYDROcodone-ACET 5/325MG TAB PO PRN (06:21)
[2024-09-15] MEDS: ACCU-CHEK COMFORT CURVE STRIP VI SCH (06:35)
[2024-09-15] MEDS: InsuLIN REG 1unit/0.01ml Soln (100units/ml) SC SCH (06:35)
[2024-09-15 07:12] LABS: Hematocrit 32.3 % (41.0-53.0); Hemoglobin 11.3 g/dL (13.5-17.5); Mean Corpuscular Hemoglobin 29.9 pg (28.0-32.0); Mean Corpuscular Volume 85.9 fL (80.0-100.0); Nucleated Red Blood Cells % 0.2 %
[2024-09-15 07:16] LABS: Alanine Aminotransferase 20 U/L (7-40); Albumin 3.3 g/dL (3.2-4.8); Alkaline Phosphatase 59 U/L (46-116); Anion Gap 10 (5-15); BUN/Creatinine Ratio 23.6 (10.0-20.0); Bilirubin, Total 0.4 mg/dL (0.2-1.0); Blood Urea Nitrogen 17 mg/dL (9-23); Calcium 8.6 mg/dL (8.7-10.4); Carbon Dioxide 21 mmol/L (20-31); Chloride 108 mmol/L (98-107); Glucose 100 mg/dL (74-106); Potassium 3.0 mmol/L (3.5-5.1); Sodium 139 mmol/L (136-145); Total Protein 5.8 g/dL (5.7-8.2)
[2024-09-15 07:55] VITALS: PULSE 62; RESP 20; O2SAT 97
--- NOTE | 2024-09-15 12:30 | DVHPN2 ---
Subjective The patient seen and examined at bedside. Complains of chest pain when eating. He said he has lots of pain when he eat. Apparently, he was diagnosis with marixa esophagitis, he did not take nystatin last discharge diagnosis. Reviewed: Care Plan, H&P, Labs, Medications, Previous Orders, Radiology Changes from previous H/P or p: No Changes Eyes: No Pain, No Vision change, No Conjunctivae inflammation, No Eyelid inflammation, No Other, No Redness ENT: No Ear pain, No Ear discharge, No Nose pain, No Nose discharge, No Nose congestion, No Mouth pain, No Mouth swelling, No Throat pain, No Throat swelling, No Other Cardiovascular: Chest Pain; No Palpitations, No Orthopnea, No Paroxysmal Noc. Dyspnea, No Edema, No Lt Headedness, No Other Respiratory: No Cough, No Dry, No Shortness of breath, No SOB with excertion, No Wheezing, No Hemoptysis, No Pleuritic Pain, No Sputum, No Other Gastrointestinal: Nausea, Vomiting; No Abdominal Pain, No Diarrhea, No Constipation, No Melena, No Hematochezia, No Other Genitourinary: No Dysuria, No Frequency, No Incontinence, No Hematuria, No Retention, No Other Musculoskeletal: No other, No neck pain, No shoulder pain, No arm pain, No back pain, No hand pain, No leg pain, No foot pain Skin: No Rash, No Lesions, No Jaundice, No Bruising, No Other Objective Vitals Vital Signs Date Time Temp Pulse Resp B/P (MAP) Pulse Ox O2 Delivery O2 Flow Rate FiO2 09/15/24 07:55 62 20 97 Room Air* 0 21 09/15/24 07:55 98.9 108/50 (69) 98.9 Intake/Output Intake and Output 09/15/24 07:00 Intake Total 2580 ml Balance 2580 ml Intake IV Total 2580 ml General Appearance: Alert, Oriented X3, Cooperative, No acute distress HEENT: Atraumatic, PERRLA, EOMI, Mucous membr. moist/pink Neck: Supple Lungs: Clear to auscultation Cardiovascular: Regular rate, Normal S1, Normal S2, No murmurs, Gallops, Rubs Abdomen: Normal bowel sounds, Soft, No tenderness Neuro: Cranial nerves 3-12 NL Psych/Mental Status: Mental status NL Medications Current Medications Medications Dose Ordered Sig/Berto Route Start Time Stop Time Status Last Admin Dose Admin Aspirin 81 mg DAILY PO 09/15/24 10:00 09/15/24 09:40 81 MG Diagnostic Test (Pha) 1 strip ACHS 09/15/24 07:00 09/15/24 11:39 1 STRIP Insulin Human Regular ACHS SC 09/15/24 07:00 09/15/24 11:41 2 UNITS Dextrose 50 ml UD PRN IV 09/14/24 22:45 Sodium Chloride 1,000 ml @ 60 mls/hr [id number] IV 09/14/24 22:45 09/14/24 23:05 60 MLS/HR Acetaminophen/ Hydrocodone Bitart 1 tab Q4HP PRN PO 09/14/24 22:45 09/15/24 06:21 1 TAB Ondansetron HCl 4 mg Q4HP PRN IV 09/14/24 22:45 Docusate Sodium 100 mg BIDPRN PRN PO 09/14/24 22:45 Acetaminophen 650 mg Q6HP PRN PO 09/14/24 22:45 Nitroglycerin 0.4 mg Q5MINP PRN SL 09/14/24 23:30 Morphine Sulfate 2 mg Q30M PRN IV 09/14/24 23:30 Laboratory Results Laboratory Tests 09/15/24 06:38 Chemistry Test 09/14/24 18:55 09/15/24 06:38 Albumin 3.9 g/dL (3.2-4.8) 3.3 g/dL (3.2-4.8) Calcium Level 9.4 mg/dL (8.7-10.4) 8.6 mg/dL (8.7-10.4) L Total Protein 6.7 g/dL (5.7-8.2) 5.8 g/dL (5.7-8.2) Lipid panel Test 09/14/24 18:55 Lipase 56 U/L (12-53) H Cardiac Markers Test 09/14/24 18:55 B-Type Natriuretic Peptide 18.45 pg/mL (0-100) LFT Test 09/14/24 18:55 09/15/24 06:38 Alanine Aminotransferase (ALT) 28 U/L (7-40) 20 U/L (7-40) Alkaline Phosphatase 75 U/L (46-116) 59 U/L (46-116) Aspartate Amino Transferase (AST) 25 U/L (13-40) 21 U/L (13-40) Total Bilirubin 0.5 mg/dL (0.2-1.0) 0.4 mg/dL (0.2-1.0) Urinalysis Test 09/14/24 23:00 Urine Color Yellow (Yellow) Urine Clarity Turbid (Clear) H Urine pH 6.0 (5.0-9.0) Urine Specific [place] 1.029 (1.001-1.035) Urine Protein 1+ (Negative) H Urine Ketones Trace (Negative) Urine Blood Negative /uL (Negative) Urine Nitrite Negative (Negative) Urine Bilirubin Negative (Negative) Urine Urobilinogen Normal mg/dL (Negative) Urine Leukocyte Esterase Negative /uL (Negative) Urine RBC 1 /hpf (0 - 3) Urine Microscopic WBC 9 /HPF (0-3) H Urine Squamous Epithelial Cells Few /hpf (<5) Urine Calcium Oxalate Crystals Few (None Seen) Urine Bacteria Few /hpf (None Seen) H Urine Mucus Few (None Seen) Urine Glucose Normal mg/dL (Normal) Labs and/or images reviewed: Labs reviewed by me Assessment/Plan Assessment/Plan Chest pain Esophagitis with Marixa Esophagitis. Hypokalemia Dehydration Leukopenia Decreased white blood cell count, unspecified HIV positive. Continue current management. Will replace K Continue IVF. Will start nystatin Diflucan 400mg IV qday. GI consult. This medical document was created using an electronic medical record system with [employer] direct computerized dictation system. Although this document has been carefully reviewed, there may still be some phonetic and typographical errors. These areas are purely typographical due to imperfections of the software programs, and do not reflect any compromise in the patient's medical care. Plan discussed with: Patient Date of Service: Sep 15, 2024 Billing Provider: YURY MUHAMMAD MD Common Visit Codes: [id number] INP/OBS CARE(HIGH) YURY MUHAMMAD MD Sep 15, 2024 12:30
[2024-09-15 15:45] VITALS: BP 128/70; PULSE 84; RESP 20; TEMP 98.1; O2SAT 97
[2024-09-15 20:00] VITALS: PULSE 76; PULSE 89; RESP 16; O2SAT 98
[2024-09-15 21:00] VITALS: BP 98/54; PULSE 89; RESP 16; TEMP 99.9; O2SAT 98
[2024-09-16] VITALS (9 sets, daily range): BP systolic 87–107; BP diastolic 40–62; PULSE 65–83; RESP 16–20; TEMP 98.8–100.6; O2SAT 93–100
--- NOTE | 2024-09-16 15:14 | DVHPN2 ---
Subjective The patient seen and examined at bedside. Still have pain when eating. Reviewed: Care Plan, H&P, Labs, Medications, Previous Orders, Radiology Changes from previous H/P or p: No Changes Eyes: No Pain, No Vision change, No Conjunctivae inflammation, No Eyelid inflammation, No Other, No Redness ENT: No Ear pain, No Ear discharge, No Nose pain, No Nose discharge, No Nose congestion, No Mouth pain, No Mouth swelling, No Throat pain, No Throat swelling, No Other Cardiovascular: Chest Pain; No Palpitations, No Orthopnea, No Paroxysmal Noc. Dyspnea, No Edema, No Lt Headedness, No Other Respiratory: No Cough, No Dry, No Shortness of breath, No SOB with excertion, No Wheezing, No Hemoptysis, No Pleuritic Pain, No Sputum, No Other Gastrointestinal: Nausea, Vomiting; No Abdominal Pain, No Diarrhea, No Constipation, No Melena, No Hematochezia, No Other Genitourinary: No Dysuria, No Frequency, No Incontinence, No Hematuria, No Retention, No Other Musculoskeletal: No other, No neck pain, No shoulder pain, No arm pain, No back pain, No hand pain, No leg pain, No foot pain Skin: No Rash, No Lesions, No Jaundice, No Bruising, No Other Objective Vitals Vital Signs Date Time Temp Pulse Resp B/P (MAP) Pulse Ox O2 Delivery O2 Flow Rate FiO2 09/16/24 12:30 100.2 68 19 102/58 (73) 100 100.2 09/16/24 07:50 Room Air* 0 21 Intake/Output Intake and Output 09/16/24 07:00 Intake Total 540 ml Balance 540 ml Intake Oral 200 ml IV Total 340 ml # Voids 1 # Bowel Movements 2 General Appearance: Alert, Oriented X3, Cooperative, No acute distress HEENT: Atraumatic, PERRLA, EOMI, Mucous membr. moist/pink Neck: Supple Lungs: Clear to auscultation, Normal air movement Cardiovascular: Regular rate, Normal S1, Normal S2, No murmurs, Gallops, Rubs Abdomen: Normal bowel sounds, Soft, No tenderness Neuro: Cranial nerves 3-12 NL Psych/Mental Status: Mental status NL Medications Current Medications Medications Dose Ordered Sig/Berto Route Start Time Stop Time Status Last Admin Dose Admin Aspirin 81 mg DAILY PO 09/15/24 10:00 09/16/24 10:03 81 MG Diagnostic Test (Pha) 1 strip ACHS 09/15/24 07:00 09/16/24 11:30 1 STRIP Insulin Human Regular ACHS SC 09/15/24 07:00 09/16/24 12:19 2 UNITS Dextrose 50 ml UD PRN IV 09/14/24 22:45 Sodium Chloride 1,000 ml @ 60 mls/hr [id number] IV 09/14/24 22:45 09/15/24 21:21 60 MLS/HR Acetaminophen/ Hydrocodone Bitart 1 tab Q4HP PRN PO 09/14/24 22:45 09/16/24 10:02 1 TAB Ondansetron HCl 4 mg Q4HP PRN IV 09/14/24 22:45 Docusate Sodium 100 mg BIDPRN PRN PO 09/14/24 22:45 Acetaminophen 650 mg Q6HP PRN PO 09/14/24 22:45 Nitroglycerin 0.4 mg Q5MINP PRN SL 09/14/24 23:30 Morphine Sulfate 2 mg Q30M PRN IV 09/14/24 23:30 Laboratory Results Laboratory Tests 09/15/24 06:38 Urinalysis Test 09/14/24 23:00 Urine Color Yellow (Yellow) Urine Clarity Turbid (Clear) H Urine pH 6.0 (5.0-9.0) Urine Specific [place] 1.029 (1.001-1.035) Urine Protein 1+ (Negative) H Urine Ketones Trace (Negative) Urine Blood Negative /uL (Negative) Urine Nitrite Negative (Negative) Urine Bilirubin Negative (Negative) Urine Urobilinogen Normal mg/dL (Negative) Urine Leukocyte Esterase Negative /uL (Negative) Urine RBC 1 /hpf (0 - 3) Urine Microscopic WBC 9 /HPF (0-3) H Urine Squamous Epithelial Cells Few /hpf (<5) Urine Calcium Oxalate Crystals Few (None Seen) Urine Bacteria Few /hpf (None Seen) H Urine Mucus Few (None Seen) Urine Glucose Normal mg/dL (Normal) Labs and/or images reviewed: Labs reviewed by me Assessment/Plan Assessment/Plan Chest pain Esophagitis with Marixa Esophagitis. Hypokalemia Dehydration Leukopenia Decreased white blood cell count, unspecified HIV positive. Continue current management. Will replace K Continue IVF. Will start nystatin Diflucan 400mg IV qday. GI consult. This medical document was created using an electronic medical record system with [employer] direct computerized dictation system. Although this document has been carefully reviewed, there may still be some phonetic and typographical errors. These areas are purely typographical due to imperfections of the software programs, and do not reflect any compromise in the patient's medical care. Plan discussed with: Patient Date of Service: Sep 16, 2024 Billing Provider: YURY MUHAMMAD MD Common Visit Codes: [id number] INP/OBS CARE(HIGH) YURY MUHAMMAD MD Sep 16, 2024 15:14
[2024-09-16] MEDS: NYSTATIN (MOUTH-THROAT) 500,000 UNITS/5 ML SUSP MT SCH (17:58)
[2024-09-16] MEDS: ACETAMINOPHEN 325 MG TAB PO PRN (22:35)
[2024-09-17] VITALS (7 sets, daily range): BP systolic 93–110; BP diastolic 43–64; PULSE 13–86; RESP 18–20; TEMP 97.9–102.5; O2SAT 95–99
[2024-09-17] MEDS: Bictegravir-Emtricitabine-Teno (Biktarvy 50-200-25 mg) TABLETS PO SCH (06:56)
[2024-09-17] MEDS: FLUCONAZOLE 200MG/100ML 100 ML IV SCH (08:42)
--- NOTE | 2024-09-17 14:52 | DVHPN2 ---
Subjective The patient seen and examined at bedside. Still have pain when eating. Reviewed: Care Plan, H&P, Labs, Medications, Previous Orders, Radiology Eyes: No Pain, No Vision change, No Conjunctivae inflammation, No Eyelid inflammation, No Other, No Redness ENT: No Ear pain, No Ear discharge, No Nose pain, No Nose discharge, No Nose congestion, No Mouth pain, No Mouth swelling, No Throat pain, No Throat swelling, No Other Cardiovascular: Chest Pain; No Palpitations, No Orthopnea, No Paroxysmal Noc. Dyspnea, No Edema, No Lt Headedness, No Other Respiratory: No Cough, No Dry, No Shortness of breath, No SOB with excertion, No Wheezing, No Hemoptysis, No Pleuritic Pain, No Sputum, No Other Gastrointestinal: Nausea, Vomiting; No Abdominal Pain, No Diarrhea, No Constipation, No Melena, No Hematochezia, No Other Genitourinary: No Dysuria, No Frequency, No Incontinence, No Hematuria, No Retention, No Other Musculoskeletal: No other, No neck pain, No shoulder pain, No arm pain, No back pain, No hand pain, No leg pain, No foot pain Skin: No Rash, No Lesions, No Jaundice, No Bruising, No Other Objective Vitals Vital Signs Date Time Temp Pulse Resp B/P (MAP) Pulse Ox O2 Delivery O2 Flow Rate FiO2 09/17/24 13:30 98.5 72 18 108/60 (76) 97 98.5 09/17/24 08:00 Room Air* 0 21 Intake/Output Intake and Output 09/17/24 07:00 Intake Total 2550 ml Balance 2550 ml Intake Oral 1550 ml IV Total 1000 ml # Voids 4 # Bowel Movements 3 General Appearance: Alert, Oriented X3, Cooperative, No acute distress HEENT: Atraumatic, PERRLA, EOMI, Mucous membr. moist/pink Neck: Supple Lungs: Clear to auscultation, Normal air movement Cardiovascular: Regular rate, Normal S1, Normal S2, No murmurs, Gallops, Rubs Abdomen: Normal bowel sounds, Soft, No tenderness Neuro: Cranial nerves 3-12 NL Psych/Mental Status: Mental status NL Medications Current Medications Medications Dose Ordered Sig/Berto Route Start Time Stop Time Status Last Admin Dose Admin Aspirin 81 mg DAILY PO 09/15/24 10:00 09/17/24 08:42 81 MG Diagnostic Test (Pha) 1 strip ACHS 09/15/24 07:00 09/17/24 11:45 1 STRIP Insulin Human Regular ACHS SC 09/15/24 07:00 09/16/24 12:19 2 UNITS Dextrose 50 ml UD PRN IV 09/14/24 22:45 Sodium Chloride 1,000 ml @ 60 mls/hr [id number] IV 09/14/24 22:45 09/16/24 23:58 60 MLS/HR Acetaminophen/ Hydrocodone Bitart 1 tab Q4HP PRN PO 09/14/24 22:45 09/16/24 10:02 1 TAB Ondansetron HCl 4 mg Q4HP PRN IV 09/14/24 22:45 Docusate Sodium 100 mg BIDPRN PRN PO 09/14/24 22:45 Acetaminophen 650 mg Q6HP PRN PO 09/14/24 22:45 09/16/24 22:35 650 MG Nitroglycerin 0.4 mg Q5MINP PRN SL 09/14/24 23:30 Morphine Sulfate 2 mg Q30M PRN IV 09/14/24 23:30 Patient Own Medication 1 tab QAM PO 09/17/24 07:00 09/17/24 06:56 1 TAB Nystatin 5 ml QID MT 09/16/24 18:00 09/17/24 12:03 5 ML Fluconazole 100 ml @ 100 mls/hr 10,11 IV 09/17/24 10:00 09/17/24 11:45 100 MLS/HR Laboratory Results Laboratory Tests 09/15/24 06:38 Urinalysis Test 09/14/24 23:00 Urine Color Yellow (Yellow) Urine Clarity Turbid (Clear) H Urine pH 6.0 (5.0-9.0) Urine Specific [place] 1.029 (1.001-1.035) Urine Protein 1+ (Negative) H Urine Ketones Trace (Negative) Urine Blood Negative /uL (Negative) Urine Nitrite Negative (Negative) Urine Bilirubin Negative (Negative) Urine Urobilinogen Normal mg/dL (Negative) Urine Leukocyte Esterase Negative /uL (Negative) Urine RBC 1 /hpf (0 - 3) Urine Microscopic WBC 9 /HPF (0-3) H Urine Squamous Epithelial Cells Few /hpf (<5) Urine Calcium Oxalate Crystals Few (None Seen) Urine Bacteria Few /hpf (None Seen) H Urine Mucus Few (None Seen) Urine Glucose Normal mg/dL (Normal) Assessment/Plan Assessment/Plan Chest pain Esophagitis with Marixa Esophagitis. Hypokalemia Dehydration Leukopenia Decreased white blood cell count, unspecified HIV positive. Continue current management. Will replace K Continue IVF. Will start nystatin Diflucan 400mg IV qday. GI consult. This medical document was created using an electronic medical record system with [employer] direct computerized dictation system. Although this document has been carefully reviewed, there may still be some phonetic and typographical errors. These areas are purely typographical due to imperfections of the software programs, and do not reflect any compromise in the patient's medical care. My Orders Orders - YURY MUHAMMAD MD Procedure Category Date Status Time (NF) PHA 09/17/24 In Process [id number] 07:00 Nystatin PHA 09/16/24 In Process (Mouth-Throat) 18:00 Fluconazole PHA 09/17/24 In Process 200mg/100ml (Diflucan 10:00 * Gi [facility] Head Assistant Wet Process CONS 09/16/24 Transmitted 15:59 Dietary NOTICE 09/17/24 Transmitted Recommendations 13:51 YURY MUHAMMAD MD Sep 17, 2024 14:52
--- NOTE | 2024-09-17 16:23 | DVHINCON2 ---
Date of service: Sep 17, 2024 Referring Physician Mikki Perez Reason for Consultation Atypical chest pain History of Present Illness 58-year-old male with a history of diabetes and HIV brought in by family complaining of right parasternal chest pain. The patient states pain is sharp and pressure-like, and has been going on for the past week but worse over the past 2 days. He states the pain is severe whenever he drinks liquids or eats food so has had severely decreased oral intake over the past week. He reports nausea and vomiting. He denies fever, diarrhea, constipation or dysuria. GI was consulted for possible evaluation of esophagitis Patient was recently hospitalized in and I performed an endoscopy and colonoscopy for weight loss nausea dyspepsia Endoscopy had shown severe esophagitis with atypical sloughing of the esophageal mucosa Colonoscopy had shown mild proctosigmoiditis and 1+ hemorrhoids Past Medical History Past Medical History DM, HIV Past Surgical History Past Surgical History Spine surgery Family History: Diabetes mellitus G8 MOTHER Allergies: Coded Allergies: NO KNOWN ALLERGIES (Unverified , 07/03/24) Home Meds Reported Medications Metformin Hydrochloride (Metformin Hcl) 850 Mg Tab, 850 MG PO, TAB 08/30/24 [id number] (Biktarvy 50-200-25 mg) 1 Tab Tab, 1 TAB PO QAM, TAB 08/30/24 Azithromycin (Azithromycin) 200 Mg/5 Ml Susi, 600 MG PO, ML 08/30/24 Sulfamethoxazole W/Trimethopri (Bactrim Ds Tablet) 1 Tab Tb, 1 TAB PO BID, TAB 08/30/24 Current Medications Current Medications Medications (Trade) Dose Ordered Sig/Berto Route PRN Reason Start Time Stop Time Status Last Admin Patient Own Medication 1 tab QAM PO 09/17/24 07:00 09/17/24 06:56 Nystatin (Mycostatin (Mouth-Throat)) 5 ml QID MT 09/16/24 18:00 09/17/24 12:03 Fluconazole 100 ml @ 100 mls/hr 10,11 IV 09/17/24 10:00 09/17/24 11:45 Vital Signs Vital Signs Date Time Temp Pulse Resp B/P (MAP) Pulse Ox O2 Delivery O2 Flow Rate FiO2 09/17/24 16:11 97.9 86 18 110/64 (79) 98 97.9 09/17/24 08:00 Room Air* 0 21 Physical Exam General Appearance: Alert, Oriented X3, Cooperative, No acute distress HEENT: Atraumatic, PERRLA, EOMI, Mucous membr. moist/pink Neck: Supple Lungs: Clear to auscultation, Normal air movement Cardiovascular: Regular rate, Normal S1, Normal S2, No murmurs, Gallops, Rubs Abdomen: Normal bowel sounds, Soft, No tenderness Neuro: Cranial nerves 3-12 NL Psych/Mental Status: Mental status NL Labs/Diagnostic Data Labs Test 09/17/24 07:00 09/15/24 06:38 09/14/24 23:00 09/14/24 19:57 Range/Units POC Glucose 82 70-106 mg/dl White Blood Count 2.2 L 4.4-10.8 10^3/uL Red Blood Count 3.76 L 4.5-5.90 10^6/uL Hemoglobin 11.3 L 13.5-17.5 g/dL Hematocrit 32.3 #L 41.0-53.0 % Mean Corpuscular Volume 85.9 80.0-100.0 fL Mean Corpuscular Hemoglobin 29.9 28.0-32.0 pg Mean Corpuscular Hemoglobin Concent 34.8 32.0-36.0 g/dL Red Cell Distribution Width 13.5 11.8-14.3 % Platelet Count 159 140-450 10^3/uL Mean Platelet Volume 7.1 6.9-10.8 fL Neutrophils (%) (Auto) 64.8 37.0-80.0 % Lymphocytes (%) (Auto) 22.1 10.0-50.0 % Monocytes (%) (Auto) 11.0 0.0-12.0 % Eosinophils (%) (Auto) 1.5 0.0-7.0 % Basophils (%) (Auto) 0.6 0.0-2.0 % Neutrophils # (Auto) 1.4 L 1.6-8.6 10 ^3/uL Lymphocytes # (Auto) 0.5 0.4-5.4 10 ^3/uL Monocytes # (Auto) 0.2 0-1.3 10 ^3/uL Eosinophils # (Auto) 0 0-0.8 10 ^3/uL Basophils # (Auto) 0 0-0.2 10 ^3/uL Nucleated Red Blood Cells 0.2 % Sodium Level 139 136-145 mmol/L Potassium Level 3.0 L 3.5-5.1 mmol/L Chloride Level 108 H 98-107 mmol/L Carbon Dioxide Level 21 20-31 mmol/L Anion Gap 10 5-15 Blood Urea Nitrogen 17 9-23 mg/dL Creatinine 0.72 0.700-1.30 mg/dL Glomerular Filtration Rate Calc 106 >90 mL/min BUN/Creatinine Ratio 23.6 H 10.0-20.0 Serum Glucose 100 74-106 mg/dL Calcium Level 8.6 L 8.7-10.4 mg/dL Total Bilirubin 0.4 0.2-1.0 mg/dL Aspartate Amino Transferase (AST) 21 13-40 U/L Alanine Aminotransferase (ALT) 20 7-40 U/L Alkaline Phosphatase 59 46-116 U/L Total Protein 5.8 5.7-8.2 g/dL Albumin 3.3 3.2-4.8 g/dL Urine Color Yellow Yellow Urine Clarity Turbid H Clear Urine pH 6.0 5.0-9.0 Urine Specific [place] 1.029 1.001-1.035 Urine Protein 1+ H Negative Urine Ketones Trace Negative Urine Blood Negative Negative /uL Urine Nitrite Negative Negative Urine Bilirubin Negative Negative Urine Urobilinogen Normal Negative mg/dL Urine Leukocyte Esterase Negative Negative /uL Urine RBC 1 0 - 3 /hpf Urine Microscopic WBC 9 H 0-3 /HPF Urine Squamous Epithelial Cells Few <5 /hpf Urine Calcium Oxalate Crystals Few None Seen Urine Bacteria Few H None Seen /hpf Urine Mucus Few None Seen Urine Glucose Normal Normal mg/dL Troponin I High Sensitivity 3 L </=54 ng/L Test 09/14/24 18:55 Range/Units Differential Total Cells Counted 100.0 100 Neutrophils % (Manual) 66 37.0-80.0 Band Neutrophils % (Manual) 2 Lymphocytes % (Manual) 20 10.0-50.0 Monocytes % (Manual) 11 0-12 Eosinophils % (Manual) 1 0-7 Basophils % (Manual) 0 0.0-2.0 Metamyelocytes % (manual) 0 Myelocytes % (Manual) 0 Promyelocytes % (Manual) 0 Blast Cells % (Manual) 0 Reactive Lymphocytes 0 Platelet Estimate Adequate Red Blood Cell Morphology Normal B-Type Natriuretic Peptide 18.45 0-100 pg/mL Lipase 56 H 12-53 U/L Problems(with codes): (1) Chest pain (2) Esophagitis (3) Colitis (4) Leukopenia (5) Dehydration (6) Decreased white blood cell count, unspecified (7) Hypokalemia Plan/Recommendation Plan Protonix 40 mg p.o. twice a day Carafate 1 g p.o. 4 times a day Nystatin swish and swallow 5 mL p.o. three times a day Check pathology report from recent endoscopy Further recommendations were made after the above Full liquid diet as tolerated Plan discussed with: Other (None) BLAYNE THURMAN MD Sep 17, 2024 16:23
[2024-09-17] MEDS: SUCRALFATE 1 GM/10 ML ORAL SUSP PO SCH (17:00)
--- NOTE | 2024-09-19 07:37 | DVHDS2 ---
Discharge Summary Date of Admission Sep 14, 2024 at 23:26 Date of Discharge: Sep 17, 2024 Admitting Diagnosis Chest pain Esophagitis with Marixa Esophagitis. Hypokalemia Dehydration Leukopenia Decreased white blood cell count, unspecified HIV positive. Labs/Diagnostic Data: Laboratory Results Test 09/17/24 17:11 09/17/24 17:05 09/15/24 06:38 09/14/24 23:00 POC Glucose 100 mg/dl (70-106) Mean Platelet Volume 7.1 fL (6.9-10.8) Neutrophils # (Auto) 1.4 10 ^3/uL (1.6-8.6) Lymphocytes # (Auto) 0.5 10 ^3/uL (0.4-5.4) Monocytes # (Auto) 0.2 10 ^3/uL (0-1.3) Eosinophils # (Auto) 0 10 ^3/uL (0-0.8) Basophils # (Auto) 0 10 ^3/uL (0-0.2) Sodium Level 139 mmol/L (136-145) Potassium Level 3.0 mmol/L (3.5-5.1) Chloride Level 108 mmol/L (98-107) Carbon Dioxide Level 21 mmol/L (20-31) Anion Gap 10 (5-15) Blood Urea Nitrogen 17 mg/dL (9-23) Creatinine 0.72 mg/dL (0.700-1.30) Glomerular Filtration Rate Calc 106 mL/min (>90) BUN/Creatinine Ratio 23.6 (10.0-20.0) Serum Glucose 100 mg/dL (74-106) Calcium Level 8.6 mg/dL (8.7-10.4) Total Bilirubin 0.4 mg/dL (0.2-1.0) Aspartate Amino Transferase (AST) 21 U/L (13-40) Alanine Aminotransferase (ALT) 20 U/L (7-40) Alkaline Phosphatase 59 U/L (46-116) Total Protein 5.8 g/dL (5.7-8.2) Albumin 3.3 g/dL (3.2-4.8) Urine Color Yellow (Yellow) Urine Clarity Turbid (Clear) Urine pH 6.0 (5.0-9.0) Urine Specific [place] 1.029 (1.001-1.035) Urine Protein 1+ (Negative) Urine Ketones Trace (Negative) Urine Blood Negative /uL (Negative) Urine Nitrite Negative (Negative) Urine Bilirubin Negative (Negative) Urine Urobilinogen Normal mg/dL (Negative) Urine Leukocyte Esterase Negative /uL (Negative) Urine RBC 1 /hpf (0 - 3) Urine Microscopic WBC 9 /HPF (0-3) Urine Squamous Epithelial Cells Few /hpf (<5) Urine Calcium Oxalate Crystals Few (None Seen) Urine Bacteria Few /hpf (None Seen) Urine Mucus Few (None Seen) Urine Glucose Normal mg/dL (Normal) Test 09/14/24 19:57 09/14/24 18:55 Troponin I High Sensitivity 3 ng/L (</=54) Differential Total Cells Counted 100.0 (100) Neutrophils % (Manual) 66 (37.0-80.0) Band Neutrophils % (Manual) 2 Lymphocytes % (Manual) 20 (10.0-50.0) Monocytes % (Manual) 11 (0-12) Eosinophils % (Manual) 1 (0-7) Basophils % (Manual) 0 (0.0-2.0) Metamyelocytes % (manual) 0 Myelocytes % (Manual) 0 Promyelocytes % (Manual) 0 Blast Cells % (Manual) 0 Reactive Lymphocytes 0 Platelet Estimate Adequate Red Blood Cell Morphology Normal B-Type Natriuretic Peptide 18.45 pg/mL (0-100) Lipase 56 U/L (12-53) Other Laboratory Tests 09/15/24 06:38 Brief Hx & Hospital Course: This is a 58 years old male with past medical history of diabetes, HIV positive come to emergency department because of right substernal chest pain. Patient said he had been experienced chest pain described as sharp, pressure-like and worsening with eating. He had severe pain when he drinks liquid and eat food. Also he had lost his appetite and decreased oral intake for one week. He had nausea and had been vomited at home. In the emergency department his lab showed leukopenia with a WBC of 2.5. X-ray showed no acute cardiopulmonary disease. EKG showed no acute change. Troponin level is normal. The patient apparently had recent endoscopy done on last admission. Biopsy report from that endoscopy showed esophageal candidiasis. The patient was not on any medication for the candidiasis. He is supposed to follow up with Dr. Davis GI specialist as outpatient for biopsy report however he did not visit her. The patient was given nystatin swish and swallow. Patient also was given Diflucan 400 mg IV q.day. GI specialist, Dr. Davis see the patient and recommend to add in his regimen Protonix 40 mg twice per day and Carafate 1gm 4 times per day.. The patient grew inpatient and stated that he wanted to leave against medical advice because no one taking care of him here. We explained to him that we had treat him with the medication appropriate for candidiasis such as nystatin, and also we will give him Protonix and Carafate to help with his burning and pain in his esophagus and stomach. The patient is still adamant that he wanted to leave against medical advice. He had a fever of 102.5, and his have tried to convince him to stay however he adamant that he needs to get out of this hospital and he understand the consequence of leaving against medical advice. Patient left against medical advice on 09/17/2024. Physical exam prior to patient leaving against medical advice show HEENT: Normocephalic atraumatic pupils equal react to light and accommodation. Extraocular muscles intact, conjunctiva pink, oropharynx moist, no exudate. Patient had some thrush in his throat. Lymphatic: No lymphadenopathy Cardiovascular exam: S1, S2 was heard. No murmurs, rubs, gallops Lung: Clear on auscultation bilaterally, no wheeze, rale, rhonchi. GI: Abdominal soft, nondistended, nontenderness, positive bowel sounds. Extremity: No crepitus, cyanosis, edema. Pedal pulses present bilateral. Full range of motion. Skin: Normal turgor, no rash. Psych: Alert, oriented x3. Neurology: No focal deficits, cranial nerve II to XII grossly intact. This medical document was created using an electronic medical record system with [employer] direct computerized dictation system. Although this document has been carefully reviewed, there may still be some phonetic and typographical errors. These areas are purely typographical due to imperfections of the software programs, and do not reflect any compromise in the patient's medical care. Condition at Discharge: Guarded Final Diagnosis/Problems List Chest pain Esophagitis with Marixa Esophagitis. Hypokalemia Dehydration Leukopenia Decreased white blood cell count, unspecified HIV positive. Medical noncompliant Discharge Disposition: AMA Discharge Instruct/Medications Scheduled Ucvoagbtlxs-Nnziynzsobbsr-Utle (Biktarvy 50-200-25 mg), 1 TAB PO QAM, (Reported) Sulfamethoxazole W/Trimethopri (Bactrim Ds Tablet), 1 TAB PO BID, (Reported) Miscellaneous Medications Azithromycin (Azithromycin), 600 MG PO, (Reported) Metformin Hydrochloride (Metformin Hcl), 850 MG PO, (Reported) Discharge Statement: "Patient was advised to return to the ER or call 911 if any headaches, dizziness, shortness of breath, chest pain, abdominal pain, bleeding, fevers, or worsening of medical condition. Patient was counseled about treatment plan, medications, possible side effects, patientverbalized understanding. All questions were answered to the best of my ability. This discharge took greater then 30 minutes in planning, reviewing documentation, counseling the patient, and discussing with other team members." ASSESSMENT ASSESSMENT Assessment Date of Service: Sep 17, 2024 Billing Provider: YURY MUHAMMAD MD Common Visit Codes: 49778-FZA/OBS DISCH DAY >30min YURY MUHAMMAD MD Sep 19, 2024 07:37
[2024-09-19 16:07] LABS: CD4/CD8 Ratio 0.07 (0.92-3.72)
[2024-09-19 18:07] LABS: Hematocrit 31.0 % (37.5-51.0); Hemoglobin 10.3 g/dL (13.0-17.7); MCH 30.5 pg (26.6-33.0); MCHC 33.2 g/dL (31.5-35.7); MCV 92 fL (79-97); RBC 3.38 x10E6/uL (4.14-5.80); RDW 14.2 % (11.6-15.4); WBC 1.7 x10E3/uL (3.4-10.8)
== END 2024-09-17 18:56 | disposition left against medical advice (07) | DRG 894 ==
LOC: ER 18:24 → OVERFLOW 23:26 → TELE-EAST 09-15 15:45
PROVIDERS: ADMIT Internal Medicine; ATTEND Internal Medicine
DX: B37.81 Candidal esophagitis (principal); B20 Human immunodeficiency virus [HIV] disease; E86.0 Dehydration; D72.819 Decreased white blood cell count, unspecified; E11.9 Type 2 diabetes mellitus without complications; E87.6 Hypokalemia; Z83.3 Family history of diabetes mellitus; Z53.29 Procedure and treatment not carried out because of patient's decision for other reasons
CPT/HCPCS: 36415; 71045; 80053; 81001; 82962; 83690; 83880; 84484; 85007; 85025; 85027; 86360; 93005; 96361; 96374; G0378; J1450; J1815; J2405; J3480

== ENCOUNTER 2024-09-22 15:23 | Inpatient (IN) | payer MEDICAID ==
[~2024-09-22] VITALS: Ht 170.2 cm; Wt 48.8 kg
--- NOTE | 2024-09-22 16:04 | ED.PDOC ---
History of Present Illness HPI Comments 58-year-old male whom is a poor historian presents with a chief complaint of abnormal labs. Patient states that he was referred to the ER by his PMD office who called and stated that his labs were abnormal. Patient does not know what lab value was abnormal and for what. Patient son is with patient and is also a poor historian. Unable to state which labs were taken, when they were taken, or where they were taken. Patient does state that he has had potassium issues in the past. Unknown as to the cause of his potassium issues. 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 Chief Complaint: Abnormal LAB's Time Seen by MD: 15:58 Primary Care Provider: COHEN Reviewed Notes: Nurses Notes, Medications, Allergies Allergies: Coded Allergies: NO KNOWN ALLERGIES (Unverified , 07/03/24) Home Meds Reported Medications Metformin Hydrochloride (Metformin Hcl) 850 Mg Tab, 850 MG PO, TAB 08/30/24 Fqntbrhdvnj-Obwxqqxbcjcpk-Qngy (Biktarvy 50-200-25 mg) 1 Tab Tab, 1 TAB PO QAM, TAB 08/30/24 Azithromycin (Azithromycin) 200 Mg/5 Ml Susi, 600 MG PO, ML 08/30/24 Sulfamethoxazole W/Trimethopri (Bactrim Ds Tablet) 1 Tab Tb, 1 TAB PO BID, TAB 08/30/24 Information Source: Patient, Relative Mode of Arrival: Ambulatory Severity: Moderate Timing: Hours Duration: Since onset Prehospital treatment: None Past Medical History PAST MEDICAL HISTORY: DM Past Medical History (Other): Patient has a history of some unknown mediastinal mass. Surgical History: Denies all surgeries Family History Family History: Reviewed,noncontributory to illness Social History Smoker: Non-Smoker Alcohol: Denies ETOH Use Drugs: Denies Drug Use Lives In: Home Constitutional: reports: fatigue, weakness; denies: chills, diaphoresis, fever, malaise, sweats, others EENTM: denies: blurred vision, double vision, ear bleeding, ear discharge, ear drainage, ear pain, ear ringing, eye pain, eye redness, hearing loss, mouth pain, mouth swelling, nasal discharge, nose bleeding, nose congestion, nose pain, photophobia, tearing, throat pain, throat swelling, voice changes, others Respiratory: denies: cough, hemoptysis, orthopnea, SOB at rest, shortness of breath, SOB with excertion, stridor, wheezing, others Cardiovascular: denies: chest pain, dizzy spells, diaphoresis, Dyspnea on exertion, edema, irregular heart beat, left arm pain, lightheadedness, palpitations, PND, syncope, others Gastrointestinal: denies: abdomen distended, abdominal pain, blood streaked bowels, constipated, diarrhea, dysphagia, difficulty swallowing, hematemesis, melena, nausea, poor appetite, poor fluid intake, rectal bleeding, rectal pain, vomiting, others Genitourinary: denies: burning, dysuria, flank pain, frequency, hematuria, incontinence, penile discharge, penile sore, pain, testicle pain, testicle swelling, urgency, others Neurological: denies: dizziness, fainting, headache, left sided numbness, left sided weakness, numbness, paresthesia, pre-existing deficit, right sided numbness, right sided weakness, seizure, speech problems, tingling, tremors, weakness, others Musculoskeletal: denies: back pain, gout, joint pain, joint swelling, muscle pain, muscle stiffness, neck pain, others Integumetry: denies: bruises, change in color, change in hair/nails, dryness, laceration, lesions, lumps, rash, wounds, others Allergic/Immunocompromised: denies: Difficulty Healing, Frequent Infections, Hives, Itching, others Hematologic/Lymphatic: denies: anemia, blood clots, easy bleeding, easy bruising, swollen glands, others Endocrine: denies: excessive hunger, excessive sweating, excessive thirst, excessive urination, flushing, intolerance to cold, intolerance to heat, unex plained weight gain, unexplained weight loss, others Psychiatric: denies: anxiety, bipolar disorder, depression, hopeless, panic disorder, schizophrenia, sleepless, suicidal, others Physical Exam General Appearance: Mild Distress (Distress due to anxiety related to his visit. Patient appears to be in poor overall health and is frail.), Thin HEENT: Normal ENT Inspection, Pharynx Normal, TMs Normal Neck: Full Range of Motion, Non-Tender, Normal, Normal Inspection Respiratory: Chest Non-Tender, Lungs Clear, No Accessory Muscle Use, No Respiratory Distress, Normal Breath Sounds Cardiovascular: No Edema, No JVD, No Murmur, No Gallop, Normal Peripheral Pulses, Regular Rate/Rhythm Breast Exam: Deferred Gastrointestinal: No Organomegaly, Non Tender, No Pulsatile Mass, Normal Bowel Sounds, Soft Genitalia: Deferred Pelvic: Deferred Rectal: Deferred Extremities: No calf tenderness, Normal capillary refill, Non-tender, No pedal edema Musculoskeletal : Apperance: Normal Neurologic: Alert, Normal Affect, Normal Mood Cerebellar Function: NOT DONE Reflexes: NOT DONE Skin: Dry, Normal Color, Warm Peripheral Pulses: 1+ carotid (L) Lymphatic: No Adenopathy Was a procedure done? Was a procedure done?: No Differential Dx Considerations may include: Electrolyte abnormality, sepsis, acute coronary syndromes, metastasis X-Ray, Labs, Meds, VS Vital Signs Date Time Temp Pulse Resp B/P (MAP) Pulse Ox O2 Delivery O2 Flow Rate FiO2 09/22/24 19:23 70 15 99 Room Air* 0 21 09/22/24 19:23 98.1 70 15 94/50 (65) 99 98.1 09/22/24 18:33 70 12 99 Room Air* 0 21 09/22/24 17:26 67 12 116/55 (75) 97 09/22/24 16:16 78 09/22/24 15:50 99.3 88 16 98/60 (73) 97 99.3 Lab Test 09/22/24 19:41 09/22/24 17:59 09/22/24 16:49 09/22/24 15:59 Range/Units Troponin I High Sensitivity 21 19 20 </=54 ng/L White Blood Count 2.5 L 4.4-10.8 10^3/uL Red Blood Count 3.92 L 4.5-5.90 10^6/uL Hemoglobin 11.6 L 13.5-17.5 g/dL Hematocrit 33.1 L 41.0-53.0 % Mean Corpuscular Volume 84.3 80.0-100.0 fL Mean Corpuscular Hemoglobin 29.6 28.0-32.0 pg Mean Corpuscular Hemoglobin Concent 35.2 32.0-36.0 g/dL Red Cell Distribution Width 14.1 11.8-14.3 % Platelet Count 174 140-450 10^3/uL Mean Platelet Volume 7.9 6.9-10.8 fL Neutrophils (%) (Auto) 37.0-80.0 % Lymphocytes (%) (Auto) 10.0-50.0 % Monocytes (%) (Auto) 0.0-12.0 % Basophils (%) (Auto) 0.0-2.0 % Neutrophils # (Auto) 1.6-8.6 10 ^3/uL Lymphocytes # (Auto) 0.4-5.4 10 ^3/uL Monocytes # (Auto) 0-1.3 10 ^3/uL Differential Total Cells Counted 100.0 100 Neutrophils % (Manual) 67 37.0-80.0 Band Neutrophils % (Manual) 5 Lymphocytes % (Manual) 19 10.0-50.0 Monocytes % (Manual) 8 0-12 Eosinophils % (Manual) 0 0-7 Basophils % (Manual) 0 0.0-2.0 Metamyelocytes % (manual) 1 Myelocytes % (Manual) 0 Promyelocytes % (Manual) 0 Blast Cells % (Manual) 0 Reactive Lymphocytes 0 Platelet Estimate [place] Large Platelets Few Ovalocytes Few Sodium Level 134 L 136-145 mmol/L Potassium Level 2.2 *L 3.5-5.1 mmol/L Chloride Level 97 L 98-107 mmol/L Carbon Dioxide Level 28 20-31 mmol/L Anion Gap 9 5-15 Blood Urea Nitrogen 20 9-23 mg/dL Creatinine 0.99 0.700-1.30 mg/dL Glomerular Filtration Rate Calc 88 >90 mL/min BUN/Creatinine Ratio 20.2 H 10.0-20.0 Serum Glucose 110 H 74-106 mg/dL Lactic Acid Level 1.2 0.4-2.0 mmol/L Calcium Level 8.2 L 8.7-10.4 mg/dL Total Bilirubin 0.7 0.2-1.0 mg/dL Aspartate Amino Transferase (AST) 34 13-40 U/L Alanine Aminotransferase (ALT) 18 7-40 U/L Alkaline Phosphatase 68 46-116 U/L B-Type Natriuretic Peptide 26.54 0-100 pg/mL Total Protein 6.2 5.7-8.2 g/dL Albumin 3.6 3.2-4.8 g/dL Lipase 39 12-53 U/L POC Glucose 117 H 70-106 mg/dl Current Medications Medications (Trade) Dose Ordered Sig/Berto Route Start Time Stop Time Status Last Admin Sodium Chloride 1,000 ml @ 200 mls/hr Q5H ONCE IV 09/22/24 16:15 09/22/24 21:14 DC 09/22/24 17:06 Potassium Chloride 100 ml @ 50 mls/hr Q2H IV 09/22/24 18:00 09/22/24 23:59 DC 09/22/24 22:00 Calcium Gluconate/ Sodium Chloride 50 ml @ 100 mls/hr ONCE ONCE IV 09/22/24 20:15 09/22/24 21:17 DC 09/22/24 21:41 Sodium Chloride 1,000 ml @ 60 mls/hr [id number] IV 09/22/24 20:15 09/22/24 21:20 X-Ray, Labs, Meds, VS Comment All studies performed the ED were evaluated by me personally. EKG revealed a sinus rhythm with a rate of 78. Borderline left axis deviation, abnormal R-wave progression, borderline repolarization abnormality and prolonged QT interval was noted. MA interval of 147 and QT interval 439. Serum laboratories remarkable for a significant reduced potassium level. Patient will receive potassium replacement more in the ED and will be admitted for continued evaluation and management. While awaiting admission to the floor, patient rolled off the bed and landed on his forehead. Patient was sent to CT for evaluation. Those results are pending at time of this note. Time of 1ST Reevaluation: 18:04 Reevaluation 1ST: Unchanged Patient Education/Counseling: Diagnosis, Treatment, Need For Follow Up Family Education/Counseling: Diagnosis, Treatment, Need For Follow Up SEPSIS Sepsis Screen Recent Procedure: No On Antibiotic Therapy: No Respiratory Rate >20: No Heart Rate >90: No Temp<36 C (96.8 F) or >38.3 C: No SBP <90 or MAP <65 mmHG: No New Acute Mental Status Change: No Is the patient on CPAP, BIPAP,: No Physician Orders Electrocardigram (09/22/24 16:02) Heplock Iv (09/22/24 ) Consistent Carb(Ccho)Diabetes (09/23/24 Breakfast) Glucose Blood (Accu-Chek Comfort Curve T (09/22/24 22:00) Insulin R (Human) (Insulin R) (09/22/24 22:00) Dextrose 50% Syringe (09/22/24 20:15) Allergies (09/22/24 20:05) Code Status (09/22/24 20:05) Sodium Chloride 0.9% (09/22/24 20:15) Oxygen Per Hour (09/22/24 20:05) Hydrocodone-Acet 5/325mg Tab (Ruth 5/32 (09/22/24 20:15) Ondansetron Hcl (Zofran) (09/22/24 20:15) Docusate Sodium Capsule (Colace Capsule) (09/22/24 20:15) Complete Blood Count (09/23/24 04:00) Comprehensive Metabolic Panel (09/23/24 04:00) Condition: Serious (09/22/24 20:05) Acetaminophen Tablet (Tylenol Tablet) (09/22/24 20:15) Bedrest With Bathroom Privileg (09/22/24 20:05) Sequential Compression Device (09/22/24 ) Vital Signs Date Time Temp Pulse Resp B/P (MAP) Pulse Ox O2 Delivery O2 Flow Rate FiO2 09/22/24 19:23 70 15 99 Room Air* 0 21 09/22/24 19:23 98.1 70 15 94/50 (65) 99 98.1 09/22/24 18:33 70 12 99 Room Air* 0 21 09/22/24 17:26 67 12 116/55 (75) 97 09/22/24 16:16 78 09/22/24 15:50 99.3 88 16 98/60 (73) 97 99.3 Laboratory Tests Test 09/22/24 16:49 Lactic Acid Level 1.2 mmol/L (0.4-2.0) White Blood Count 2.5 10^3/uL (4.4-10.8) L Medications Medications Dose Ordered Sig/Berto Route Start Time Stop Time Status Last Admin Dose Admin Calcium Gluconate/ Sodium Chloride 50 ml @ 100 mls/hr ONCE ONCE IV 09/22/24 20:15 09/22/24 21:17 DC 09/22/24 21:41 Potassium Chloride 100 ml @ 50 mls/hr Q2H IV 09/22/24 18:00 09/22/24 23:59 DC 09/22/24 22:00 Sodium Chloride 1,000 ml @ 60 mls/hr [id number] IV 09/22/24 20:15 09/22/24 21:20 Sodium Chloride 1,000 ml @ 200 mls/hr Q5H ONCE IV 09/22/24 16:15 09/22/24 21:14 DC 09/22/24 17:06 Departure 1 Departure Time of Disposition: 18:05 Impression: Primary Impression: Hypokalemia Additional Impressions: Anemia Failure to thrive Leukopenia Disposition: ADMITTED INPATIENT Condition: Fair Discharged With: Self, Relative Critical Care Note Critical Care Time?: No Stability Stability form required: No Heart Score Heart Score: Heart Score Response (Comments) Value History Slightly Suspicious 0 EKG Repolarization Disturb 1 Age 45-64 1 Risk Factors 1 or 2 risk factors 1 Troponin Normal limit 0 Total 3 I personally scribed for SB BARON PAC ([email or web address]) on 09/22/24 at 16:03. Electronically submitted by Roger Garcia ([email or web address]). SB BARON PAC Sep 22, 2024 16:03
[2024-09-22] MEDS: SODIUM CHLORIDE 0.9% 1,000 ML IV ONE (17:06)
[2024-09-22 17:19] LABS: Hematocrit 33.1 % (41.0-53.0); Hemoglobin 11.6 g/dL (13.5-17.5); Mean Corpuscular Hemoglobin 29.6 pg (28.0-32.0); Mean Corpuscular Volume 84.3 fL (80.0-100.0)
[2024-09-22 17:28] LABS: Alanine Aminotransferase 18 U/L (7-40); Albumin 3.6 g/dL (3.2-4.8); Alkaline Phosphatase 68 U/L (46-116); Anion Gap 9 (5-15); BUN/Creatinine Ratio 20.2 (10.0-20.0); Blood Urea Nitrogen 20 mg/dL (9-23); Carbon Dioxide 28 mmol/L (20-31); Lipase 39 U/L (12-53); Total Protein 6.2 g/dL (5.7-8.2)
[2024-09-22 17:29] LABS: Bilirubin, Total 0.7 mg/dL (0.2-1.0)
[2024-09-22 17:30] LABS: Calcium 8.2 mg/dL (8.7-10.4); Chloride 97 mmol/L (98-107); Glucose 110 mg/dL (74-106); Sodium 134 mmol/L (136-145)
[2024-09-22 17:34] LABS: Potassium 2.2 mmol/L (3.5-5.1)
[2024-09-22 17:57] LABS: Ovalocytes FEW; Total Cells Counted 100.0 (100)
[2024-09-22] MEDS: POTASSIUM CHL 20MEQ/100ML 100 ML IV SCH (18:16)
[2024-09-22 18:33] VITALS: PULSE 70; RESP 12; O2SAT 99
[2024-09-22 19:23] VITALS: PULSE 70; RESP 15; O2SAT 99
[2024-09-22] MEDS ORDERED: HYDROcodone-ACET 5/325MG TAB PO PRN (20:15)
[2024-09-22] MEDS ORDERED: ONDANSETRON HCL 4 MG/2 ML VIAL IV PRN (20:15)
[2024-09-22] MEDS ORDERED: ACETAMINOPHEN 325 MG TAB PO PRN (20:15)
[2024-09-22] MEDS ORDERED: DEXTROSE (50%) 50ML SYRG IV PRN (20:15)
[2024-09-22] MEDS ORDERED: DOCUSATE SOD 100 MG CAP PO PRN (20:15)
[2024-09-22] MEDS ORDERED: NITROGLYCERIN 0.4 MG SL TAB SL PRN (20:45)
[2024-09-22] MEDS ORDERED: MORPHINE SULFATE INJ 2 MG/ml SYRG IV PRN (20:45)
--- NOTE | 2024-09-22 20:45 | DVHHP2 ---
History of Present Illness Reason for Visit: Generalized weakness History of Present Illness The patient is a 58-year-old male with past medical history of diabetes mellitus who presented to [facility] ED for evaluation of abnormal labs results. Patient reports that he was referred to the ER by his primary care ph ysician's office due to abnormal labs results. Patient was seen and evaluated in the ED, laboratory data shows WBC 2.5, hemoglobin 11.6, hematocrit 33.1, platelets 174, sodium 134, potassium 2.2, BUN 20, creatinine 0.99, glucose 110, calcium 8.2, troponin 20, BNP 26.54, blood pressure 94/50, heart rate 70, temperature 98.1 F, O2 saturation 99% on room air. 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 Patient was found to have imbalance electrolyte, please see medication orders section in the computer. On my assessment, patient denied chest pain, no headache, no dizziness, no shortness of breath, no diaphoresis, no diarrhea, no nausea, no vomiting, no fever, no chills. Patient was admitted for further evaluation and medical management. Past Medical History Diabetes mellitus Reports unknown mediastinal mass. Past Surgical History Denies all surgeries Family History Reviewed, noncontributory to the management of this case. Past Social History The patient lives at home, denies smoking, alcohol or illicit drugs abuse. Review of Systems Constitutional: Yes: Weakness, Other (Fatigue); No: Fever, Chills, Sweats, Malaise Eyes: No: Pain, Vision change, Conjunctivae inflammation, Eyelid inflammation, Other, Redness ENT: No: Ear pain, Ear discharge, Nose pain, Nose discharge, Nose congestion, Mouth pain, Mouth swelling, Throat pain, Throat swelling, Other Respiratory: No: Cough, Dry, Shortness of breath, SOB with excertion, Wheezing, Hemoptysis, Pleuritic Pain, Sputum, Wheezing, Other Cardiovascular: No: Chest Pain, Palpitations, Orthopnea, Paroxysmal Noc. Dyspnea, Edema, Lt Headedness, Other Gastrointestinal: No: Nausea, Vomiting, Abdominal Pain, Diarrhea, Constipation, Melena, Hematochezia, Other Genitourinary: No Dysuria, No Frequency, No Incontinence, No Hematuria, No Retention, No Other Musculoskeletal: No: other, neck pain, shoulder pain, arm pain, back pain, hand pain, leg pain, foot pain Skin: No: Rash, Lesions, Jaundice, Bruising, Other Neurological: No: Weakness, Numbness, Incoordination, Change in speech, Confusion, Seizures, Other Allergies: Coded Allergies: NO KNOWN ALLERGIES (Unverified , 07/03/24) Medications Current Medications Medications Dose Ordered Sig/Berto Route Start Time Stop Time Status Last Admin Dose Admin Potassium Chloride 100 ml @ 50 mls/hr Q2H IV 09/22/24 18:00 09/22/24 23:59 09/22/24 20:02 50 MLS/HR Diagnostic Test (Pha) 1 strip ACHS 09/22/24 22:00 UNV Insulin Human Regular ACHS SC 09/22/24 22:00 UNV Dextrose 50 ml UD PRN IV 09/22/24 20:15 UNV Sodium Chloride 1,000 ml @ 60 mls/hr [id number] IV 09/22/24 20:15 UNV Acetaminophen/ Hydrocodone Bitart 1 tab Q4HP PRN PO 09/22/24 20:15 UNV Ondansetron HCl 4 mg Q4HP PRN IV 09/22/24 20:15 UNV Docusate Sodium 100 mg BIDPRN PRN PO 09/22/24 20:15 UNV Acetaminophen 650 mg Q6HP PRN PO 09/22/24 20:15 UNV Exam Vital Signs Vital Signs Date Time Temp Pulse Resp B/P (MAP) Pulse Ox O2 Delivery O2 Flow Rate FiO2 09/22/24 19:23 70 15 99 Room Air* 0 21 09/22/24 19:23 98.1 94/50 (65) 98.1 General Appearance: Alert, Oriented X3, Cooperative, No acute distress HEENT: Atraumatic, PERRLA, EOMI, Mucous membr. moist/pink Respiratory: Normal air movement Cardiovascular: Regular rate, Normal S1, Normal S2, No murmurs Abdominal: Normal bowel sounds, Soft, No tenderness, No hepatospenomegaly, No masses Extremities: No clubbing, No cyanosis, No edema, Normal pulses, No tenderness/swelling Skin: No rashes, No breakdown, No significant lesion Neuro: Normal speech, Normal tone, Sensation intact, Cranial nerves 3-12 NL, Reflexes 2+, Other (Generalized weakness) Psych/Mental Status: Mental status NL, Mood NL Labs/Xrays Labs Test 09/22/24 19:41 09/22/24 16:49 09/22/24 15:59 Range/Units Troponin I High Sensitivity 21 </=54 ng/L White Blood Count 2.5 L 4.4-10.8 10^3/uL Red Blood Count 3.92 L 4.5-5.90 10^6/uL Hemoglobin 11.6 L 13.5-17.5 g/dL Hematocrit 33.1 L 41.0-53.0 % Mean Corpuscular Volume 84.3 80.0-100.0 fL Mean Corpuscular Hemoglobin 29.6 28.0-32.0 pg Mean Corpuscular Hemoglobin Concent 35.2 32.0-36.0 g/dL Red Cell Distribution Width 14.1 11.8-14.3 % Platelet Count 174 140-450 10^3/uL Mean Platelet Volume 7.9 6.9-10.8 fL Neutrophils (%) (Auto) 37.0-80.0 % Lymphocytes (%) (Auto) 10.0-50.0 % Monocytes (%) (Auto) 0.0-12.0 % Basophils (%) (Auto) 0.0-2.0 % Neutrophils # (Auto) 1.6-8.6 10 ^3/uL Lymphocytes # (Auto) 0.4-5.4 10 ^3/uL Monocytes # (Auto) 0-1.3 10 ^3/uL Differential Total Cells Counted 100.0 100 Neutrophils % (Manual) 67 37.0-80.0 Band Neutrophils % (Manual) 5 Lymphocytes % (Manual) 19 10.0-50.0 Monocytes % (Manual) 8 0-12 Eosinophils % (Manual) 0 0-7 Basophils % (Manual) 0 0.0-2.0 Metamyelocytes % (manual) 1 Myelocytes % (Manual) 0 Promyelocytes % (Manual) 0 Blast Cells % (Manual) 0 Reactive Lymphocytes 0 Platelet Estimate [place] Large Platelets Few Ovalocytes Few Sodium Level 134 L 136-145 mmol/L Potassium Level 2.2 *L 3.5-5.1 mmol/L Chloride Level 97 L 98-107 mmol/L Carbon Dioxide Level 28 20-31 mmol/L Anion Gap 9 5-15 Blood Urea Nitrogen 20 9-23 mg/dL Creatinine 0.99 0.700-1.30 mg/dL Glomerular Filtration Rate Calc 88 >90 mL/min BUN/Creatinine Ratio 20.2 H 10.0-20.0 Serum Glucose 110 H 74-106 mg/dL Lactic Acid Level 1.2 0.4-2.0 mmol/L Calcium Level 8.2 L 8.7-10.4 mg/dL Total Bilirubin 0.7 0.2-1.0 mg/dL Aspartate Amino Transferase (AST) 34 13-40 U/L Alanine Aminotransferase (ALT) 18 7-40 U/L Alkaline Phosphatase 68 46-116 U/L B-Type Natriuretic Peptide 26.54 0-100 pg/mL Total Protein 6.2 5.7-8.2 g/dL Albumin 3.6 3.2-4.8 g/dL Lipase 39 12-53 U/L POC Glucose 117 H 70-106 mg/dl SEPSIS Sepsis Screen Date sepsis recognized/suspect: Sep 22, 2024 Time Sepsis recognized/suspect: 1922 Recent Procedure: No On Antibiotic Therapy: No Respiratory Rate >20: No Heart Rate >90: No Temp<36 C (96.8 F) or >38.3 C: No SBP <90 or MAP <65 mmHG: Yes New Acute Mental Status Change: No Is the patient on CPAP, BIPAP,: No Physician Orders Electrocardigram (09/22/24 16:02) Urinalysis (09/22/24 16:02) Sodium Chloride 0.9% (09/22/24 16:15) Heplock Iv (09/22/24 ) Potassium Chl 20meq/100ml (09/22/24 18:00) Calcium Gluc 1,000mg/50ml-Ns (09/22/24 20:15) Consistent Carb(Ccho)Diabetes (09/23/24 Breakfast) Glucose Blood (Accu-Chek Comfort Curve T (09/22/24 22:00) Insulin R (Human) (Insulin R) (09/22/24 22:00) Dextrose 50% Syringe (09/22/24 20:15) Allergies (09/22/24 20:05) Code Status (09/22/24 20:05) Sodium Chloride 0.9% (09/22/24 20:15) Oxygen Per Hour (09/22/24 20:05) Hydrocodone-Acet 5/325mg Tab ([place] 5/32 (09/22/24 20:15) Ondansetron Hcl (Zofran) (09/22/24 20:15) Docusate Sodium Capsule (Colace Capsule) (09/22/24 20:15) Complete Blood Count (09/23/24 04:00) Comprehensive Metabolic Panel (09/23/24 04:00) Condition: Serious (09/22/24 20:05) Acetaminophen Tablet (Tylenol Tablet) (09/22/24 20:15) Bedrest With Bathroom Privileg (09/22/24 20:05) Sequential Compression Device (09/22/24 ) Vital Signs Date Time Temp Pulse Resp B/P (MAP) Pulse Ox O2 Delivery O2 Flow Rate FiO2 09/22/24 19:23 70 15 99 Room Air* 0 21 09/22/24 19:23 98.1 70 15 94/50 (65) 99 98.1 09/22/24 18:33 70 12 99 Room Air* 0 21 09/22/24 17:26 67 12 116/55 (75) 97 09/22/24 16:16 78 09/22/24 15:50 99.3 88 16 98/60 (73) 97 99.3 Laboratory Tests Test 09/22/24 16:49 Lactic Acid Level 1.2 mmol/L (0.4-2.0) White Blood Count 2.5 10^3/uL (4.4-10.8) L Medications Medications Dose Ordered Sig/Berto Route Start Time Stop Time Status Last Admin Dose Admin Potassium Chloride 100 ml @ 50 mls/hr Q2H IV 09/22/24 18:00 09/22/24 23:59 09/22/24 20:02 50 MLS/HR Sodium Chloride 1,000 ml @ 200 mls/hr Q5H ONCE IV 09/22/24 16:15 09/22/24 21:14 09/22/24 17:06 200 MLS/HR Assessment/Plan Assessment/Plan Hypokalemia Leukopenia Anemia, unspecified Failure to thrive Generalized weakness Plan 1. Admit to telemetry unit 2. Breathing treatment 3. Pain control management 4. Management of fluids and electrolytes 5. Consultation for hospitalist 6. Diagnostic tests chest x-ray 7. DVT prophylaxis on SCDs 8. Repeat labs CBC, CMP in a.m. 9. Continue with current medical management 10. Treatment plan discussed with patient and RN. Patient verbalized understanding. Plan discussed with: Patient, Other (RN) My Orders Orders - KATHRYN SANCHEZ DNP Procedure Category Date Status Time Calcium Gluc PHA 09/22/24 Logged 1,000mg/50ml-Ns 20:15 Consistent DIET 09/23/24 Transmitted Carb(Ccho)Diabetes Breakfast Glucose Blood PHA 09/22/24 Logged (Accu-Chek Comfort 22:00 Insulin R (Human) PHA 09/22/24 Logged (Insulin R) 22:00 Dextrose 50% Syringe PHA 09/22/24 Logged 20:15 Allergies ALEYDA 09/22/24 In Process 20:05 Code Status CODE 09/22/24 Transmitted 20:05 Sodium Chloride 0.9% PHA 09/22/24 Logged 20:15 Oxygen Per Hour RT 09/22/24 Transmitted 20:05 Hydrocodone-Acet PHA 09/22/24 Logged 5/325mg Tab ([place] 20:15 Ondansetron Hcl PHA 09/22/24 Logged (Zofran) 20:15 Docusate Sodium PHA 09/22/24 Logged Capsule (Colace 20:15 Complete Blood Count LAB 09/23/24 Verified 04:00 Comprehensive LAB 09/23/24 Verified Metabolic Panel 04:00 Condition: Serious ALEYDA 09/22/24 In Process 20:05 Acetaminophen Tablet PHA 09/22/24 Logged (Tylenol Tablet) 20:15 Bedrest With Bathroom ALEYDA 09/22/24 In Process Privileg 20:05 Sequential ALEYDA 09/22/24 In Process Compression Device Problem List: (1) Hypokalemia (2) Leukopenia (3) Anemia, unspecified (4) Failure to thrive (5) Generalized weakness Date of Service: Sep 22, 2024 Billing Provider: KATHRYN SANCHEZ DNP Common Visit Codes: [id number] INP/OBS CARE (HIGH) KATHRYN SANCHEZ DNP Sep 22, 2024 20:45
[2024-09-22] MEDS: SODIUM CHLORIDE 0.9% 1,000 ML IV SCH (21:20)
[2024-09-22] MEDS: CALCIUM GLUC 1,000mg/50ml-NS 50 ML IV ONE (21:41)
[2024-09-22] MEDS: InsuLIN REG 1unit/0.01ml Soln (100units/ml) SC SCH (21:53)
[2024-09-22] MEDS: ACCU-CHEK COMFORT CURVE STRIP VI SCH (21:53)
[2024-09-22 22:14] LABS: Urine Protein, UAD 1+ (Negative)
[2024-09-23] VITALS (9 sets, daily range): BP systolic 88–118; BP diastolic 34–65; PULSE 66–82; RESP 16–33; TEMP 98–99.8; O2SAT 96–99
[2024-09-23 04:27] LABS: Alanine Aminotransferase 13 U/L (7-40); Alkaline Phosphatase 55 U/L (46-116); Anion Gap 10 (5-15); BUN/Creatinine Ratio 16.7 (10.0-20.0); Blood Urea Nitrogen 13 mg/dL (9-23); Carbon Dioxide 23 mmol/L (20-31); Chloride 105 mmol/L (98-107); Glucose 84 mg/dL (74-106); Sodium 138 mmol/L (136-145)
[2024-09-23 04:28] LABS: Bilirubin, Total 0.5 mg/dL (0.2-1.0)
--- NOTE | 2024-09-23 04:30 | DVH ---
EXAM: CT HEAD WITHOUT CONTRAST INDICATION: Fall/head trauma TECHNIQUE: CT of the head without intravenous contrast. Radiation Dose : 1. Head: CT Dose: CTDI volume is 53.48 mGy. Dose-length product is 1054.02 mGy*cm The dose indicators for CT are the volume Computed Tomography (CT) Dose Index (CTDIvol) and the Dose Length Product (DLP), and are measured in units of mGy and mGy-cm, respectively. These indicators are not patient dose, but values generated from the CT scanner acquisition factors. The report includes radiation exposure data for exposures received during this examination. COMPARISON: None FINDINGS: There is no evidence of acute intracranial hemorrhage, extra-axial collection, mass effect, midline s hift, herniation or hydrocephalus. The ventricles, sulci and cisterns are age appropriate. The murphy-white differentiation is intact. The visualized paranasal sinuses and mastoid air cells are clear. The surrounding soft tissues and osseous structures are unremarkable. IMPRESSION: 1. No acute intracranial abnormality. Radiation optimization: All CT scans at this facility use at least one of these dose optimization ranjan hniques: automated exposure control mA and/or kV adjustment per patient size (includes targeted exam s where dose is matched to clinical indication) or iterative reconstruction.
[2024-09-23 04:31] LABS: Albumin 3.1 g/dL (3.2-4.8); Calcium 8.2 mg/dL (8.7-10.4); Total Protein 5.5 g/dL (5.7-8.2)
[2024-09-23 04:32] LABS: Potassium 2.2 mmol/L (3.5-5.1)
--- NOTE | 2024-09-23 05:27 | DVH ---
CHEST RADIOGRAPH Indication: POSSIBLE MASS Technique: Single frontal view of the chest was obtained COMPARISON: XY CHEST XRAY 1 VIEW on DOS: 09/14/24 FINDINGS: Lines and Tubes: None Lungs: Clear Pleura: No effusion. No pneumothorax. Cardiomediastinal contours: Unremarkable Bones: Unremarkable IMPRESSION: 1. No acute disease.
[2024-09-23] MEDS: POTASSIUM CHL 20MEQ/100ML 100 ML IV SCH (05:40)
[2024-09-23 07:38] LABS: Hematocrit 28.6 % (41.0-53.0); Hemoglobin 9.9 g/dL (13.5-17.5); Mean Corpuscular Hemoglobin 30.2 pg (28.0-32.0); Mean Corpuscular Volume 86.8 fL (80.0-100.0)
[2024-09-23 08:34] LABS: Total Cells Counted 100.0 (100)
--- NOTE | 2024-09-23 14:09 | DVHPN2 ---
Subjective The patient is seen and examined at bedside. The patient complained of pain when he swallowing. The patient is noncompliant with medical treatment for his esophageal candidiasis. Reviewed: Care Plan, H&P, Labs, Medications, Previous Orders, Radiology Changes from previous H/P or p: No Changes Eyes: No Pain, No Vision change, No Conjunctivae inflammation, No Eyelid inflammation, No Other, No Redness ENT: No Ear pain, No Ear discharge, No Nose pain, No Nose discharge, No Nose congestion, No Mouth pain, No Mouth swelling, No Throat pain, No Throat swelling, No Other Cardiovascular: No Chest Pain, No Palpitations, No Orthopnea, No Paroxysmal Noc. Dyspnea, No Edema, No Lt Headedness, No Other Respiratory: No Cough, No Dry, No Shortness of breath, No SOB with excertion, No Wheezing, No Hemoptysis, No Pleuritic Pain, No Sputum, No Other Gastrointestinal: No Nausea, No Vomiting, No Abdominal Pain, No Diarrhea, No Constipation, No Melena, No Hematochezia, No Other Genitourinary: No Dysuria, No Frequency, No Incontinence, No Hematuria, No Retention, No Other Musculoskeletal: No other, No neck pain, No shoulder pain, No arm pain, No back pain, No hand pain, No leg pain, No foot pain Skin: No Rash, No Lesions, No Jaundice, No Bruising, No Other Objective Vitals Vital Signs Date Time Temp Pulse Resp B/P (MAP) Pulse Ox O2 Delivery O2 Flow Rate FiO2 09/23/24 11:00 98.1 68 28 103/58 (73) 99 98.1 09/23/24 07:45 Room Air* 0 21 Intake/Output Intake and Output 09/23/24 07:00 Intake Total 160 ml Balance 160 ml Intake IV Total 160 ml General Appearance: Alert, Oriented X3, Cooperative, No acute distress HEENT: Atraumatic, PERRLA, EOMI, Mucous membr. moist/pink Neck: Supple Lungs: Clear to auscultation, Normal air movement Cardiovascular: Regular rate, Normal S1, Normal S2, No murmurs, Gallops, Rubs Abdomen: Normal bowel sounds, Soft, No tenderness Neuro: Cranial nerves 3-12 NL Psych/Mental Status: Mental status NL Medications Current Medications Medications Dose Ordered Sig/Berto Route Start Time Stop Time Status Last Admin Dose Admin Diagnostic Test (Pha) 1 strip ACHS 09/22/24 22:00 09/23/24 12:02 1 STRIP Insulin Human Regular ACHS SC 09/22/24 22:00 Dextrose 50 ml UD PRN IV 09/22/24 20:15 Sodium Chloride 1,000 ml @ 60 mls/hr [id number] IV 09/22/24 20:15 09/23/24 12:57 60 MLS/HR Acetaminophen/ Hydrocodone Bitart 1 tab Q4HP PRN PO 09/22/24 20:15 Ondansetron HCl 4 mg Q4HP PRN IV 09/22/24 20:15 Docusate Sodium 100 mg BIDPRN PRN PO 09/22/24 20:15 Acetaminophen 650 mg Q6HP PRN PO 09/22/24 20:15 Nitroglycerin 0.4 mg Q5MINP PRN SL 09/22/24 20:45 Morphine Sulfate 2 mg Q30M PRN IV 09/22/24 20:45 Laboratory Results Laboratory Tests 09/23/24 03:39 09/23/24 07:06 09/23/24 12:27 Chemistry Test 09/22/24 16:49 09/23/24 03:39 Albumin 3.6 g/dL (3.2-4.8) 3.1 g/dL (3.2-4.8) L Calcium Level 8.2 mg/dL (8.7-10.4) L 8.2 mg/dL (8.7-10.4) L Total Protein 6.2 g/dL (5.7-8.2) 5.5 g/dL (5.7-8.2) L Lipid panel Test 09/22/24 16:49 Lipase 39 U/L (12-53) Cardiac Markers Test 09/22/24 16:49 B-Type Natriuretic Peptide 26.54 pg/mL (0-100) LFT Test 09/22/24 16:49 09/23/24 03:39 Alanine Aminotransferase (ALT) 18 U/L (7-40) 13 U/L (7-40) Alkaline Phosphatase 68 U/L (46-116) 55 U/L (46-116) Aspartate Amino Transferase (AST) 34 U/L (13-40) 28 U/L (13-40) Total Bilirubin 0.7 mg/dL (0.2-1.0) 0.5 mg/dL (0.2-1.0) Urinalysis Test 09/22/24 21:50 Urine Color Light-yellow (Yellow) Urine Clarity Clear (Clear) Urine pH 6.5 (5.0-9.0) Urine Specific [place] 1.015 (1.001-1.035) Urine Protein 1+ (Negative) H Urine Ketones Trace (Negative) Urine Blood Negative /uL (Negative) Urine Nitrite Negative (Negative) Urine Bilirubin Negative (Negative) Urine Urobilinogen Normal mg/dL (Negative) Urine Leukocyte Esterase Negative /uL (Negative) Urine RBC None seen /hpf (0 - 3) Urine Microscopic WBC 12 /HPF (0-3) H Urine Squamous Epithelial Cells Few /hpf (<5) Urine Bacteria None seen /hpf (None Seen) Urine Glucose Normal mg/dL (Normal) Labs and/or images reviewed: Labs reviewed by me Assessment/Plan Assessment/Plan Hypokalemia Leukopenia Anemia, unspecified Failure to thrive Generalized weakness HIV positive Esophageal candidiasis Medical noncompliant Continuing current management. We will replace potassium with K-Dur 80 mEq today. We will start the patient on Diflucan 200 mg daily We will start the patient on nystatin swish and swallow 4 times per day. Discussed with the patient in length regarding to compliance with medication. This medical document was created using an electronic medical record system with [employer] direct computerized dictation system. Although this document has been carefully reviewed, there may still be some phonetic and typographical errors. These areas are purely typographical due to imperfections of the software programs, and do not reflect any compromise in the patient's medical care. Plan discussed with: Patient Date of Service: Sep 23, 2024 Billing Provider: YURY MUHAMMAD MD Common Visit Codes: [id number] INP/OBS CARE(HIGH) YURY MUHAMMAD MD Sep 23, 2024 14:09
[2024-09-24] VITALS (9 sets, daily range): BP systolic 88–112; BP diastolic 47–64; PULSE 68–79; RESP 15–22; TEMP 98.8–99.9; O2SAT 95–99
--- NOTE | 2024-09-24 15:01 | DVHPN2 ---
Subjective The patient is seen and examined at bedside. The patient complained of pain when he swallowing still. Reviewed: Care Plan, H&P, Labs, Medications, Previous Orders, Radiology Changes from previous H/P or p: No Changes Eyes: No Pain, No Vision change, No Conjunctivae inflammation, No Eyelid inflammation, No Other, No Redness ENT: No Ear pain, No Ear discharge, No Nose pain, No Nose discharge, No Nose congestion, No Mouth pain, No Mouth swelling, No Throat pain, No Throat swelling, No Other Cardiovascular: No Chest Pain, No Palpitations, No Orthopnea, No Paroxysmal Noc. Dyspnea, No Edema, No Lt Headedness, No Other Respiratory: No Cough, No Dry, No Shortness of breath, No SOB with excertion, No Wheezing, No Hemoptysis, No Pleuritic Pain, No Sputum, No Other Gastrointestinal: No Nausea, No Vomiting, No Abdominal Pain, No Diarrhea, No Constipation, No Melena, No Hematochezia, No Other Genitourinary: No Dysuria, No Frequency, No Incontinence, No Hematuria, No Retention, No Other Musculoskeletal: No other, No neck pain, No shoulder pain, No arm pain, No back pain, No hand pain, No leg pain, No foot pain Skin: No Rash, No Lesions, No Jaundice, No Bruising, No Other Objective Vitals Vital Signs Date Time Temp Pulse Resp B/P (MAP) Pulse Ox O2 Delivery O2 Flow Rate FiO2 09/24/24 13:00 99.0 71 18 88/57 (67) 99 99.0 09/24/24 07:30 Room Air* 0 21 Intake/Output Intake and Output 09/24/24 07:00 Intake Total 690 ml Output Total 425 ml Balance 265 ml Intake Oral 460 ml IV Total 230 ml Output Urine Total 425 ml # Voids 3 # Bowel Movements 2 General Appearance: Alert, Oriented X3, Cooperative, No acute distress HEENT: Atraumatic, PERRLA, EOMI, Mucous membr. moist/pink Neck: Supple Lungs: Clear to auscultation, Normal air movement Cardiovascular: Regular rate, Normal S1, Normal S2, No murmurs, Gallops, Rubs Abdomen: Normal bowel sounds, Soft, No tenderness Neuro: Cranial nerves 3-12 NL Psych/Mental Status: Mental status NL Medications Current Medications Medications Dose Ordered Sig/Berto Route Start Time Stop Time Status Last Admin Dose Admin Diagnostic Test (Pha) 1 strip ACHS 09/22/24 22:00 09/24/24 11:24 1 STRIP Insulin Human Regular ACHS SC 09/22/24 22:00 Dextrose 50 ml UD PRN IV 09/22/24 20:15 Sodium Chloride 1,000 ml @ 60 mls/hr [id number] IV 09/22/24 20:15 09/24/24 07:57 60 MLS/HR Acetaminophen/ Hydrocodone Bitart 1 tab Q4HP PRN PO 09/22/24 20:15 Ondansetron HCl 4 mg Q4HP PRN IV 09/22/24 20:15 Docusate Sodium 100 mg BIDPRN PRN PO 09/22/24 20:15 Acetaminophen 650 mg Q6HP PRN PO 09/22/24 20:15 Nitroglycerin 0.4 mg Q5MINP PRN SL 09/22/24 20:45 Morphine Sulfate 2 mg Q30M PRN IV 09/22/24 20:45 Nystatin 5 ml QID MT 09/24/24 18:00 UNV Fluconazole 200 mg DAILY PO 09/25/24 10:00 UNV Laboratory Results Laboratory Tests 09/23/24 03:39 09/23/24 07:06 09/23/24 12:27 Urinalysis Test 09/22/24 21:50 Urine Color Light-yellow (Yellow) Urine Clarity Clear (Clear) Urine pH 6.5 (5.0-9.0) Urine Specific [place] 1.015 (1.001-1.035) Urine Protein 1+ (Negative) H Urine Ketones Trace (Negative) Urine Blood Negative /uL (Negative) Urine Nitrite Negative (Negative) Urine Bilirubin Negative (Negative) Urine Urobilinogen Normal mg/dL (Negative) Urine Leukocyte Esterase Negative /uL (Negative) Urine RBC None seen /hpf (0 - 3) Urine Microscopic WBC 12 /HPF (0-3) H Urine Squamous Epithelial Cells Few /hpf (<5) Urine Bacteria None seen /hpf (None Seen) Urine Glucose Normal mg/dL (Normal) Labs and/or images reviewed: Labs reviewed by me Assessment/Plan Assessment/Plan Hypokalemia Leukopenia Anemia, unspecified Failure to thrive Generalized weakness HIV positive Esophageal candidiasis Medical noncompliant Continuing current management. We will replace potassium with K-Dur 40mEq. Continuing the patient on Diflucan 200 mg daily Continuing the patient on nystatin swish and swallow 4 times per day. We will restart Protonix and Carafate late last admission. Patient signed out AMA last admission and was not go home with Protonix and Carafate. Discussed with the patient in length regarding to compliance with medication. This medical document was created using an electronic medical record system with [employer] direct computerized dictation system. Although this document has been carefully reviewed, there may still be some phonetic and typographical errors. These areas are purely typographical due to imperfections of the software programs, and do not reflect any compromise in the patient's medical care. Plan discussed with: Patient My Orders Orders - YURY MUHAMMAD MD Procedure Category Date Status Time Nystatin PHA 09/24/24 Logged (Mouth-Throat) 18:00 Fluconazole Tablet PHA 09/25/24 Logged (Diflucan Tablet) 10:00 Complete Blood Count LAB 09/24/24 Logged 14:34 Basic Metabolic Panel LAB 09/24/24 Logged 14:34 Date of Service: Sep 24, 2024 Billing Provider: YURY MUHAMMAD MD Common Visit Codes: [id number] INP/OBS CARE(HIGH) YURY MUHAMMAD MD Sep 24, 2024 15:01
[2024-09-24 15:17] LABS: Hematocrit 28.6 % (41.0-53.0); Hemoglobin 10.2 g/dL (13.5-17.5); Mean Corpuscular Hemoglobin 30.1 pg (28.0-32.0); Mean Corpuscular Volume 84.1 fL (80.0-100.0)
[2024-09-24 15:25] LABS: Chloride 104 mmol/L (98-107); Sodium 138 mmol/L (136-145)
[2024-09-24 15:26] LABS: Anion Gap 8 (5-15); Carbon Dioxide 26 mmol/L (20-31)
[2024-09-24 15:28] LABS: Calcium 8.1 mg/dL (8.7-10.4); Potassium 2.3 mmol/L (3.5-5.1)
[2024-09-24 15:31] LABS: BUN/Creatinine Ratio 15.0 (10.0-20.0)
[2024-09-24 15:32] LABS: Blood Urea Nitrogen 9 mg/dL (9-23); Glucose 157 mg/dL (74-106)
[2024-09-24 15:45] LABS: Total Cells Counted 100.0 (100)
[2024-09-24 15:46] LABS: Anisocytosis Slight
[2024-09-24] MEDS: POTASSIUM CHL 20 Meq TABLET PO SCH (15:46)
[2024-09-24] MEDS: NYSTATIN (MOUTH-THROAT) 500,000 UNITS/5 ML SUSP MT SCH (17:05)
[2024-09-25] VITALS (7 sets, daily range): BP systolic 96–109; BP diastolic 53–68; PULSE 72–81; RESP 16–19; TEMP 97.8–98.9; O2SAT 96–99
[2024-09-25 08:02] LABS: Anion Gap 10 (5-15); Carbon Dioxide 25 mmol/L (20-31); Chloride 104 mmol/L (98-107); Sodium 139 mmol/L (136-145)
[2024-09-25 08:08] LABS: BUN/Creatinine Ratio 11.1 (10.0-20.0); Glucose 77 mg/dL (74-106)
[2024-09-25 08:09] LABS: Blood Urea Nitrogen 7 mg/dL (9-23); Calcium 8.1 mg/dL (8.7-10.4)
[2024-09-25 08:11] LABS: Potassium 2.4 mmol/L (3.5-5.1)
[2024-09-25 08:20] LABS: Hematocrit 28.9 % (41.0-53.0); Hemoglobin 10.3 g/dL (13.5-17.5); Mean Corpuscular Hemoglobin 30.2 pg (28.0-32.0); Mean Corpuscular Volume 84.8 fL (80.0-100.0); Nucleated Red Blood Cells % 0.1 %
[2024-09-25] MEDS: POTASSIUM CHL 20 Meq TABLET PO ONE ×2 (09:31→14:55)
[2024-09-25] MEDS: FLUCONAZOLE 100 MG TAB PO SCH (09:32)
[2024-09-25] MEDS: POTASSIUM CHLORIDE 40 MEQ, LIDOCAINE 1% (LOCAL ANESTH.) 4 ML in SODIUM CHL 0.9% 250 ML IV ONE (10:50)
[2024-09-25] MEDS: SUCRALFATE 1 GM/10 ML ORAL SUSP GT SCH (11:34)
--- NOTE | 2024-09-25 12:31 | DVHPN2 ---
Subjective The patient is seen and examined at bedside. The patient complained of pain when he swallowing still. Reviewed: Care Plan, H&P, Labs, Medications, Previous Orders, Radiology Changes from previous H/P or p: No Changes Eyes: No Pain, No Vision change, No Conjunctivae inflammation, No Eyelid inflammation, No Other, No Redness ENT: No Ear pain, No Ear discharge, No Nose pain, No Nose discharge, No Nose congestion, No Mouth pain, No Mouth swelling, No Throat pain, No Throat swelling, No Other Cardiovascular: No Chest Pain, No Palpitations, No Orthopnea, No Paroxysmal Noc. Dyspnea, No Edema, No Lt Headedness, No Other Respiratory: No Cough, No Dry, No Shortness of breath, No SOB with excertion, No Wheezing, No Hemoptysis, No Pleuritic Pain, No Sputum, No Other Gastrointestinal: No Nausea, No Vomiting, No Abdominal Pain, No Diarrhea, No Constipation, No Melena, No Hematochezia, No Other Genitourinary: No Dysuria, No Frequency, No Incontinence, No Hematuria, No Retention, No Other Musculoskeletal: No other, No neck pain, No shoulder pain, No arm pain, No back pain, No hand pain, No leg pain, No foot pain Skin: No Rash, No Lesions, No Jaundice, No Bruising, No Other Objective Vitals Vital Signs Date Time Temp Pulse Resp B/P (MAP) Pulse Ox O2 Delivery O2 Flow Rate FiO2 09/25/24 09:00 98.6 72 19 106/68 (81) 99 98.6 09/25/24 08:00 Room Air* 0 21 Intake/Output Intake and Output 09/25/24 07:00 Intake Total 1880 ml Output Total 427 ml Balance 1453 ml Intake Oral 500 ml IV Total 1380 ml Output Urine Total 427 ml # Bowel Movements 2 General Appearance: Alert, Oriented X3, Cooperative, No acute distress HEENT: Atraumatic, PERRLA, EOMI, Mucous membr. moist/pink Neck: Supple Lungs: Clear to auscultation, Normal air movement Cardiovascular: Regular rate, Normal S1, Normal S2, No murmurs, Gallops, Rubs Abdomen: Normal bowel sounds, Soft, No tenderness Neuro: Cranial nerves 3-12 NL Psych/Mental Status: Mental status NL Medications Current Medications Medications Dose Ordered Sig/Berto Route Start Time Stop Time Status Last Admin Dose Admin Diagnostic Test (Pha) 1 strip ACHS 09/22/24 22:00 09/25/24 11:35 1 STRIP Insulin Human Regular ACHS SC 09/22/24 22:00 09/25/24 11:39 2 UNITS Dextrose 50 ml UD PRN IV 09/22/24 20:15 Sodium Chloride 1,000 ml @ 60 mls/hr [id number] IV 09/22/24 20:15 09/25/24 09:41 60 MLS/HR Acetaminophen/ Hydrocodone Bitart 1 tab Q4HP PRN PO 09/22/24 20:15 Ondansetron HCl 4 mg Q4HP PRN IV 09/22/24 20:15 Docusate Sodium 100 mg BIDPRN PRN PO 09/22/24 20:15 Acetaminophen 650 mg Q6HP PRN PO 09/22/24 20:15 Nitroglycerin 0.4 mg Q5MINP PRN SL 09/22/24 20:45 Morphine Sulfate 2 mg Q30M PRN IV 09/22/24 20:45 Nystatin 5 ml QID MT 09/24/24 18:00 09/25/24 11:34 5 ML Fluconazole 200 mg DAILY PO 09/25/24 10:00 09/25/24 09:32 200 MG Pantoprazole Sodium 40 mg BID@0600,1700 PO 09/25/24 17:00 Sucralfate 1 gm QID@0600,1130,1700,2200 GT 09/25/24 11:30 09/25/24 11:34 1 GM Laboratory Results Laboratory Tests 09/25/24 06:28 Chemistry Test 09/24/24 14:58 09/25/24 06:28 Calcium Level 8.1 mg/dL (8.7-10.4) L 8.1 mg/dL (8.7-10.4) L Urinalysis Test 09/22/24 21:50 Urine Color Light-yellow (Yellow) Urine Clarity Clear (Clear) Urine pH 6.5 (5.0-9.0) Urine Specific [place] 1.015 (1.001-1.035) Urine Protein 1+ (Negative) H Urine Ketones Trace (Negative) Urine Blood Negative /uL (Negative) Urine Nitrite Negative (Negative) Urine Bilirubin Negative (Negative) Urine Urobilinogen Normal mg/dL (Negative) Urine Leukocyte Esterase Negative /uL (Negative) Urine RBC None seen /hpf (0 - 3) Urine Microscopic WBC 12 /HPF (0-3) H Urine Squamous Epithelial Cells Few /hpf (<5) Urine Bacteria None seen /hpf (None Seen) Urine Glucose Normal mg/dL (Normal) Labs and/or images reviewed: Labs reviewed by me Assessment/Plan Assessment/Plan Hypokalemia Leukopenia Anemia, unspecified Failure to thrive Generalized weakness HIV positive Esophageal candidiasis Medical noncompliant Continuing current management. We will replace potassium with K-Dur 40mEq. Continuing the patient on Diflucan 200 mg daily Continuing the patient on nystatin swish and swallow 4 times per day. We will restart Protonix and Carafate late last admission. Patient signed out AMA last admission and was not go home with Protonix and Carafate. Discussed with the patient in length regarding to compliance with medication. I will put patient on schedule Kdur 40meq bid. I will check BMP and Mag in am. This medical document was created using an electronic medical record system with [employer] direct computerized dictation system. Although this document has been carefully reviewed, there may still be some phonetic and typographical errors. These areas are purely typographical due to imperfections of the software programs, and do not reflect any compromise in the patient's medical care. Plan discussed with: Patient My Orders Orders - YURY MUHAMMAD MD Procedure Category Date Status Time Nystatin PHA 09/24/24 In Process (Mouth-Throat) 18:00 Fluconazole Tablet PHA 09/25/24 In Process (Diflucan Tablet) 10:00 Pantoprazole Tablet PHA 09/25/24 In Process (Protonix Tablet) 17:00 Sucralfate Susp PHA 09/25/24 In Process (Carafate Susp) 11:30 Potassium Er Tablet PHA 09/25/24 Transmitted (Klor-Con Tablet) 12:30 Potassium Er Tablet PHA 09/26/24 Transmitted (Klor-Con Tablet) 10:00 Date of Service: Sep 25, 2024 Billing Provider: YURY MUHAMMAD MD Common Visit Codes: [id number] INP/OBS CARE(HIGH) YURY MUHAMMAD MD Sep 25, 2024 12:30
[2024-09-25] MEDS: LOPERAMIDE HCL 2 MG CAP/TAB PO ONE (14:54)
[2024-09-25] MEDS: PANTOPRAZOLE 40 MG TAB PO SCH (17:14)
[2024-09-26] VITALS (7 sets, daily range): BP systolic 99–118; BP diastolic 60–70; PULSE 74–84; RESP 16–17; TEMP 97.7–100.8; O2SAT 95–99
[2024-09-26] MEDS: LOPERAMIDE HCL 2 MG CAP/TAB PO PRN (04:57)
[2024-09-26 07:45] LABS: Hematocrit 30.5 % (41.0-53.0); Hemoglobin 10.7 g/dL (13.5-17.5); Mean Corpuscular Hemoglobin 30.2 pg (28.0-32.0); Mean Corpuscular Volume 85.9 fL (80.0-100.0)
[2024-09-26 07:47] LABS: Anion Gap 10 (5-15); Carbon Dioxide 23 mmol/L (20-31); Chloride 106 mmol/L (98-107); Sodium 139 mmol/L (136-145)
[2024-09-26 07:49] LABS: Calcium 7.9 mg/dL (8.7-10.4); Potassium 2.8 mmol/L (3.5-5.1)
[2024-09-26 07:54] LABS: BUN/Creatinine Ratio 9.8 (10.0-20.0); Magnesium 2.2 mg/dL (1.6-2.6)
[2024-09-26 07:55] LABS: Blood Urea Nitrogen 6 mg/dL (9-23); Glucose 72 mg/dL (74-106)
--- NOTE | 2024-09-26 08:40 | ECG ---
[facility] Test Date: 2024-09-22 Test Time: 16:16:57 Pat Name: CRISTIAN JOHNSON Department: er Room: 0223T B Gender: M [employer]er: herbie : 1965 Requested By: SB BARON Order Number: [id number] Reading MD: Moreno Guerrero Measurements Intervals [place] Rate: 78 P: 66 LA: 147 QRS: -26 QRSD: 104 T: 67 QT: 439 QTc: 501 Interpretive Statements Sinus rhythm Borderline left axis deviation Abnormal R-wave progression, early transition Borderline repolarization abnormality Prolonged QT interval Electronically Signed On 09-27-2024 15:47:21 PDT by Moreno Guerrero Please click the below link to view image of tracing.
[2024-09-26] MEDS: POTASSIUM CHL 20 Meq TABLET PO SCH (09:50)
[2024-09-26 10:06] LABS: Total Cells Counted 100.0 (100)
[2024-09-26] MEDS ORDERED: SUCR1SUS26 GT (12:23)
[2024-09-26] MEDS ORDERED: NYS5LQ MT (12:23)
[2024-09-26] MEDS ORDERED: PANT40T PO (12:23)
[2024-09-26] MEDS ORDERED: LOPE2CAP16 PO (12:23)
[2024-09-26] MEDS ORDERED: FLUC200T PO (12:23)
[2024-09-26] MEDS ORDERED: POTA-180 PO (12:24)
--- NOTE | 2024-09-26 12:26 | DVHDS2 ---
Discharge Summary Date of Admission Sep 22, 2024 at 20:44 Date of Discharge: Sep 26, 2024 Admitting Diagnosis Hypokalemia Leukopenia Anemia, unspecified Failure to thrive Generalized weakness HIV positive Esophageal candidiasis Medical noncompliant Labs/Diagnostic Data: Laboratory Results Test 09/26/24 06:39 09/26/24 06:18 09/25/24 06:28 09/24/24 14:58 POC Glucose 94 mg/dl (70-106) White Blood Count 2.7 10^3/uL (4.4-10.8) Red Blood Count 3.55 10^6/uL (4.5-5.90) Hemoglobin 10.7 g/dL (13.5-17.5) Hematocrit 30.5 % (41.0-53.0) Mean Corpuscular Volume 85.9 fL (80.0-100.0) Mean Corpuscular Hemoglobin 30.2 pg (28.0-32.0) Mean Corpuscular Hemoglobin Concent 35.1 g/dL (32.0-36.0) Red Cell Distribution Width 14.9 % (11.8-14.3) Platelet Count 172 10^3/uL (140-450) Mean Platelet Volume 7.6 fL (6.9-10.8) Neutrophils (%) (Auto) % (37.0-80.0) Lymphocytes (%) (Auto) % (10.0-50.0) Monocytes (%) (Auto) % (0.0-12.0) Basophils (%) (Auto) % (0.0-2.0) Neutrophils # (Auto) 10 ^3/uL (1.6-8.6) Lymphocytes # (Auto) 10 ^3/uL (0.4-5.4) Monocytes # (Auto) 10 ^3/uL (0-1.3) Differential Total Cells Counted 100.0 (100) Neutrophils % (Manual) 77 (37.0-80.0) Band Neutrophils % (Manual) 0 Lymphocytes % (Manual) 14 (10.0-50.0) Monocytes % (Manual) 8 (0-12) Eosinophils % (Manual) 1 (0-7) Basophils % (Manual) 0 (0.0-2.0) Metamyelocytes % (manual) 0 Myelocytes % (Manual) 0 Promyelocytes % (Manual) 0 Blast Cells % (Manual) 0 Reactive Lymphocytes 0 Platelet Estimate Adequate Sodium Level 139 mmol/L (136-145) Potassium Level 2.8 mmol/L (3.5-5.1) Chloride Level 106 mmol/L (98-107) Carbon Dioxide Level 23 mmol/L (20-31) Anion Gap 10 (5-15) Blood Urea Nitrogen 6 mg/dL (9-23) Creatinine 0.61 mg/dL (0.700-1.30) Glomerular Filtration Rate Calc 111 mL/min (>90) BUN/Creatinine Ratio 9.8 (10.0-20.0) Serum Glucose 72 mg/dL (74-106) Calcium Level 7.9 mg/dL (8.7-10.4) Magnesium Level 2.2 mg/dL (1.6-2.6) Eosinophils (%) (Auto) 1.7 % (0.0-7.0) Eosinophils # (Auto) 0 10 ^3/uL (0-0.8) Basophils # (Auto) 0 10 ^3/uL (0-0.2) Nucleated Red Blood Cells 0.1 % Anisocytosis (manual) Slight Test 09/23/24 03:39 09/22/24 21:50 09/22/24 19:41 09/22/24 16:49 Total Bilirubin 0.5 mg/dL (0.2-1.0) Aspartate Amino Transferase (AST) 28 U/L (13-40) Alanine Aminotransferase (ALT) 13 U/L (7-40) Alkaline Phosphatase 55 U/L (46-116) Total Protein 5.5 g/dL (5.7-8.2) Albumin 3.1 g/dL (3.2-4.8) Urine Color Light-yellow (Yellow) Urine Clarity Clear (Clear) Urine pH 6.5 (5.0-9.0) Urine Specific [place] 1.015 (1.001-1.035) Urine Protein 1+ (Negative) Urine Ketones Trace (Negative) Urine Blood Negative /uL (Negative) Urine Nitrite Negative (Negative) Urine Bilirubin Negative (Negative) Urine Urobilinogen Normal mg/dL (Negative) Urine Leukocyte Esterase Negative /uL (Negative) Urine RBC None seen /hpf (0 - 3) Urine Microscopic WBC 12 /HPF (0-3) Urine Squamous Epithelial Cells Few /hpf (<5) Urine Bacteria None seen /hpf (None Seen) Urine Glucose Normal mg/dL (Normal) Troponin I High Sensitivity 21 ng/L (</=54) Large Platelets Few Ovalocytes Few Lactic Acid Level 1.2 mmol/L (0.4-2.0) B-Type Natriuretic Peptide 26.54 pg/mL (0-100) Lipase 39 U/L (12-53) Other Laboratory Tests 09/26/24 06:18 Brief Hx & Hospital Course: 58 years old male with past medical history diabetes come to emergency department because of abnormal labs results. The patient apparently sent by his primary care doctor office due to abnormal lab. The patient was found to have WBC of 2.5, potassium of 2.2. The patient apparently had a metastatic mass extending in his chest and lost about 50 lb per patient report. Patient was admitted here in this hospital and left against medical advice last admission about couple days ago. The patient was found to have esophageal candidiasis in the past and was put on treatment with nystatin and also Protonix and Carafate. However he did not take the medication and come back with chest pain difficulty swallowing, loss of appetite ice and did not eat because of the pain in the esophagus. The patient also was found to have potassium of 2.2. Despite multiple replacement his potassium still remained low. The patient was put on schedule potassium with 80 mEq daily and on top of it is supplement every day if his potassium is low. Today the patient is stable. Potassium stable. I am going to discharge the patient home. The patient will be discharge was schedule potassium 80 mEq daily. Also advised the patient to take Imodium for his diarrhea advised the patient to see his Infectious Disease to discuss regarding to his HIV medication and also to check viral load and CD4 count. Advised the patient to compliance with the treatment of esophageal variceal including nystatin swish and swallow and also Diflucan p.o.. Advised the patient to eat food that rich in potassium such as yellow squash, pumpkin. Follow up with primary care physician 1-2 weeks. Follow up with infectious disease specialist per schedule. Activity as tolerated. Diet per home diet. Physical exam: HEENT: Normocephalic atraumatic pupils equal react to light and accommodation. Extraocular muscles intact, conjunctiva pink, oropharynx moist, no thrush, no exudate. Lymphatic: No lymphadenopathy Cardiovascular exam: S1, S2 was heard. No murmurs, rubs, gallops Lung: Clear on auscultation bilaterally, no wheeze, rale, rhonchi. GI: Abdominal soft, nondistended, nontenderness, positive bowel sounds. Extremity: No crepitus, cyanosis, edema. Pedal pulses present bilateral. Full range of motion. Skin: Normal turgor, no rash. Psych: Alert, oriented x3. Neurology: No focal deficits, cranial nerve II to XII grossly intact. This medical document was created using an electronic medical record system with [employer] computerized dictation system. Although this document has been carefully reviewed, there may still be some phonetic and typographical errors. These areas are purely typographical due to imperfections of the software programs, and do not reflect any compromise in the patient's medical care. Condition at Discharge: Stable Final Diagnosis/Problems List Hypokalemia Leukopenia Anemia, unspecified Failure to thrive Generalized weakness HIV positive Esophageal candidiasis Medical noncompliant Discharge Disposition: Home Discharge Instruct/Medications Diet: Regular Diet comment: soft diet, increase in taking pumpkin, yellow squash, some banana Activity: No Restrictions, As Tolerated Follow Up/Referral: pcp 1-2 weeks ID per schedule GI specialist, Dr Sue Davis in 4-6 weeks Medications: see med list Scheduled Oxumprgjfhe-Tiuzfkdjbdsjl-Tdqo (Biktarvy 50-200-25 mg), 1 TAB PO QAM, (Reported) Fluconazole (Diflucan), 200 MG PO DAILY Nystatin (Mouth-Throat) (Mycostatin (Mouth-Throat)), 5 ML MT QID Pantoprazole Sodium Sesquihydr (Pantoprazole Sodium), 40 MG PO BID@0600,1700 Potassium Chloride (Potassium Chloride ER), 40 MEQ PO BID Sucralfate (Carafate Susp), 1 GM GT QID@0600,1130,1700,2200 Sulfamethoxazole W/Trimethopri (Bactrim Ds Tablet), 1 TAB PO BID, (Reported) Scheduled PRN Loperamide Hcl (Imodium), 2 MG PO Q6HPRN PRN Miscellaneous Medications Azithromycin (Azithromycin), 600 MG PO, (Reported) Metformin Hydrochloride (Metformin Hcl), 850 MG PO, (Reported) Discharge Statement: "Patient was advised to return to the ER or call 911 if any headaches, dizziness, shortness of breath, chest pain, abdominal pain, bleeding, fevers, or worsening of medical condition. Patient was counseled about treatment plan, medications, possible side effects, patientverbalized understanding. All questions were answered to the best of my ability. This discharge took greater then 30 minutes in planning, reviewing documentation, counseling the patient, and discussing with other team members." ASSESSMENT ASSESSMENT Assessment hypokalemia Esophageal candidisis Date of Service: Sep 26, 2024 Billing Provider: YURY MUHAMMAD MD Common Visit Codes: 38939-PDZ/OBS DISCH DAY >30min YURY MUHAMMAD MD Sep 26, 2024 12:26
== END 2024-09-26 17:00 | disposition home or self-care (01) | DRG 894 ==
LOC: ER 15:23 → OVERFLOW 20:44 → TELE-CENTR 09-23 16:24
PROVIDERS: ADMIT Internal Medicine; ATTEND Internal Medicine
DX: E87.6 Hypokalemia (principal); B20 Human immunodeficiency virus [HIV] disease; B37.81 Candidal esophagitis; R62.7 Adult failure to thrive; E11.9 Type 2 diabetes mellitus without complications; D64.9 Anemia, unspecified; D72.819 Decreased white blood cell count, unspecified; Z91.199 Patient's noncompliance with other medical treatment and regimen due to unspecified reason
CPT/HCPCS: 36415; 70450; 71045; 80048; 80053; 81001; 82962; 83605; 83690; 83735; 83880; 84132; 84484; 85007; 85025; 85027; 93005; 96365; G0378; J1815; J2003; J3480

== ENCOUNTER 2024-10-07 17:35 | Inpatient (IN) | payer MEDICAID ==
[~2024-10-07] VITALS: Ht 165.1 cm; Wt 49.1 kg
[~2024-10-07 17:35] MED LIST changes: +FLUC200T PO; +LOPE2CAP16 PO; +NYS5LQ MT; +PANT40T PO; +POTA-180 PO; +SUCR1SUS26 GT
[2024-10-07 18:35] VITALS: PULSE 82; RESP 18; O2SAT 97
[2024-10-07] MEDS: ACETAMINOPHEN 500 MG TAB or CAP PO ONE (18:38)
[2024-10-07] MEDS: LACTATED RINGER'S 1,850 ML IV ONE (18:41)
[2024-10-07] MEDS: VANCOMYCIN 1GM/200ML PM 200 ML IV ONE (18:44)
--- NOTE | 2024-10-07 18:51 | ED.PDOC ---
History of Present Illness HPI Comments 58 year old male with a Hx of DM, HIV, anemia, hypokalemia and esophageal candidiasis presents to the ED for the c/c of Generalized Weakness w/ associated N/V/D, Fever, productive Cough, and ALOC characterized by lethargy and slowness to respond. states that pts symptoms started 1x hour before ED arrival, where she notice pt was "barely conscious". EMS notes pt was Hypotensive on Scene and was given a Bolus. BS upon Triage assessment was noted to be 84. Patient denies any pain or any other associated symptoms, modifiers, recent injuries or sick contacts present at this time. Chief Complaint: General Weakness Time Seen by : 18:45 Primary Care Provider: MARCUS Reviewed Notes: Nurses Notes, Staff Psychologist Notes, Medications, Allergies Allergies: Coded Allergies: NO KNOWN ALLERGIES (Unverified , 07/03/24) Home Meds Active Scripts Potassium Chloride (Potassium Chloride ER) 20 Meq Tab, 40 MEQ PO BID, #120 TAB 5 Refills Prov:YRUY MUHAMMAD MD 09/26/24 Fluconazole (Diflucan) 200 Mg Tab, 200 MG PO DAILY, #14 TAB Prov:YURY MUHAMMAD MD 09/26/24 Nystatin (Mouth-Throat) (Mycostatin (Mouth-Throat)) 500,000 Units/5 Ml Ss, 5 ML MT QID, #473 ML 5 Refills Prov:YURY MUHAMMAD MD 09/26/24 Sucralfate (CARAFATE SUSP) 1 Gm/10 Ml Ss, 1 GM GT QID@0600,1130,1700,2200, #600 ML 5 Refills Prov:YURY MUHAMMAD MD 09/26/24 Pantoprazole Sodium Sesquihydr (Pantoprazole Sodium) 40 Mg Tab, 40 MG PO BID@0600,1700, #60 TAB 5 Refills Prov:YURY MUHAMMAD MD 09/26/24 Loperamide Hcl (Imodium) 2 Mg Cp, 2 MG PO Q6HPRN PRN, #60 CAP 3 Refills Prov:YURY MUHAMMAD MD 09/26/24 Reported Medications Metformin Hydrochloride (Metformin Hcl) 850 Mg Tab, 850 MG PO, TAB 08/30/24 Hivhuluqokn-Oozeoujiewfsu-Ansy (Biktarvy 50-200-25 mg) 1 Tab Tab, 1 TAB PO QAM, TAB 08/30/24 Azithromycin (Azithromycin) 200 Mg/5 Ml Susi, 600 MG PO, ML 08/30/24 Sulfamethoxazole W/Trimethopri (Bactrim Ds Tablet) 1 Tab Tb, 1 TAB PO BID, TAB 08/30/24 Information Source: Patient, Emergency Med Personnel Mode of Arrival: EMS Severity: Moderate Timing: Hours Duration: Since onset, Hours Prehospital treatment: 12 Lead EKG, Accucheck, Clinical Immunologist, Oxygen Past Medical History PAST MEDICAL HISTORY: Anemia, DM, HIV Past Medical History (Other): Esophageal candidiasis Surgical History (Other): Spine surgery Family History Family History: Reviewed,noncontributory to illness Social History Smoker: Non-Smoker Alcohol: Denies ETOH Use Drugs: Denies Drug Use Lives In: Home All Other Systems: Reviewed and Negative (Comprehensive systems review obtained and negative except for what is stated in the HPI.) Physical Exam General Appearance: No Apparent Distress, Thin HEENT: Other (Pupils and face symmetric. Dry mucous membranes.) Neck: Full Range of Motion, Non-Tender, Normal Inspection, Supple Respiratory: Lungs Clear, No Accessory Muscle Use, No Respiratory Distress, Normal Breath Sounds, Other (Productive sounding cough) Cardiovascular: No Edema, No JVD, Regular Rate/Rhythm Breast Exam: Deferred Gastrointestinal: Non Tender, Soft Genitalia: Deferred Pelvic: Deferred Rectal: Deferred Extremities: Normal inspection, Normal range of motion, Non-tender, No pedal edema Neurologic: Alert (Oriented x3), Normal Affect, Normal Mood, Other (Moves all extremities) Cerebellar Function: NOT DONE Reflexes: NOT DONE Skin: Dry, Normal Color, Warm Lymphatic: NOT DONE Was a procedure done? Was a procedure done?: No EKG EKG : Comments Sinus rhythm, rate 90, normal FL and QRS intervals, QTC prolonged at 587, old inferior infarct, nonspecific T change. Differential Dx Considerations may include: Sepsis, pneumonia, UTI, dehydration/hypovolemia/AYAKA, electrolyte imbalance, among others X-Ray, Labs, Meds, VS Vital Signs Date Time Temp Pulse Resp B/P (MAP) Pulse Ox O2 Delivery O2 Flow Rate FiO2 10/07/24 20:00 78 10/07/24 19:30 98.3 84 15 92/57 (69) 96 98.3 10/07/24 19:30 84 15 96 Room Air* 0 21 10/07/24 18:38 100.9 10/07/24 18:35 100.9 82 18 90/50 (63) 97 100.9 10/07/24 18:35 82 18 97 Room Air* 0 21 10/07/24 17:48 90 10/07/24 17:45 100.0 97 20 103/64 98 100.0 Lab Test 10/07/24 19:55 10/07/24 18:49 Range/Units Influenza Type A Antigen Pending Influenza Type B Antigen Pending SARS-CoV-2 Antigen (Rapid) Pending White Blood Count 3.4 L 4.4-10.8 10^3/uL Red Blood Count 2.94 L 4.5-5.90 10^6/uL Hemoglobin 9.0 L 13.5-17.5 g/dL Hematocrit 25.8 L 41.0-53.0 % Mean Corpuscular Volume 87.7 80.0-100.0 fL Mean Corpuscular Hemoglobin 30.8 28.0-32.0 pg Mean Corpuscular Hemoglobin Concent 35.1 32.0-36.0 g/dL Red Cell Distribution Width 14.7 H 11.8-14.3 % Platelet Count 164 140-450 10^3/uL Mean Platelet Volume 7.4 6.9-10.8 fL Neutrophils (%) (Auto) 76.9 37.0-80.0 % Lymphocytes (%) (Auto) 14.3 10.0-50.0 % Monocytes (%) (Auto) 8.0 0.0-12.0 % Eosinophils (%) (Auto) 0.4 0.0-7.0 % Basophils (%) (Auto) 0.4 0.0-2.0 % Neutrophils # (Auto) 2.6 1.6-8.6 10 ^3/uL Lymphocytes # (Auto) 0.5 0.4-5.4 10 ^3/uL Monocytes # (Auto) 0.3 0-1.3 10 ^3/uL Eosinophils # (Auto) 0 0-0.8 10 ^3/uL Basophils # (Auto) 0 0-0.2 10 ^3/uL Nucleated Red Blood Cells 0.0 % Prothrombin Time 13.8 H 9.3-11.8 sec Prothrombin Time INR 1.34 H 0.9-1.15 Activated Partial Thromboplast Time 32.8 24.5-34.5 SEC Sodium Level 137 136-145 mmol/L Potassium Level 3.4 L 3.5-5.1 mmol/L Chloride Level 103 98-107 mmol/L Carbon Dioxide Level 26 20-31 mmol/L Anion Gap 8 5-15 Blood Urea Nitrogen 14 9-23 mg/dL Creatinine 0.64 L 0.700-1.30 mg/dL Glomerular Filtration Rate Calc 110 >90 mL/min BUN/Creatinine Ratio 21.9 H 10.0-20.0 Serum Glucose 96 74-106 mg/dL Lactic Acid Level 1.1 0.4-2.0 mmol/L Calcium Level 7.5 L 8.7-10.4 mg/dL Total Bilirubin 0.4 0.2-1.0 mg/dL Aspartate Amino Transferase (AST) 35 13-40 U/L Alanine Aminotransferase (ALT) 21 7-40 U/L Alkaline Phosphatase 133 H 46-116 U/L Total Protein 5.5 L 5.7-8.2 g/dL Albumin 3.0 L 3.2-4.8 g/dL Current Medications Medications (Trade) Dose Ordered Sig/Berto Route Start Time Stop Time Status Last Admin Acetaminophen (Tylenol Tablet Or Capsule) 1,000 mg ONCE ONCE PO 10/07/24 18:45 10/07/24 18:46 DC 10/07/24 18:38 Lactated Ringer's 1,850 ml @ 1,850 mls/hr ONCE ONCE IV 10/07/24 18:45 10/07/24 19:44 DC 10/07/24 18:41 Vancomycin HCl 200 ml @ 200 mls/hr ONCE ONCE IV 10/07/24 18:45 10/07/24 19:44 DC 10/07/24 18:44 Cefepime HCl 50 ml @ 50 mls/hr ONCE ONCE IV 10/07/24 19:00 10/07/24 19:59 DC 10/07/24 19:57 PATIENT: CRISTIAN JOHNSON ACCT: [id number] UNIT: [id number] : 1965 LOC: ER ROOM / BED: / AGE / SEX: 58 / M ADM STATUS: REG ER SERVICE [id number] ORDERING PHYSICIAN: SAMANTHA ORTEGA MD PROCEDURE(s): CXR1 - CHEST XRAY 1 VIEW REASON: fever cough ORDER NUMBER(s): [id number], ACCESSION NUMBER(s): [id number] CHEST RADIOGRAPH REASON FOR EXAM: fever cough COMPARISON: XY CHEST XRAY 1 VIEW on DOS: 09/22/24, XY CHEST XRAY 1 VIEW on DOS: 09/14/24 TECHNIQUE: One view of the chest is provided FINDINGS: The cardiomediastinal silhouette is within normal limits for technique. There is no focal airspace disease. There is no significant pleural effusion. No acute bony abnormality is identified. IMPRESSION: No radiographic evidence of acute cardiopulmonary process. X-Ray, Labs, Meds, VS Comment 58-year-old male with a history of diabetes, HIV, anemia and esophageal can didiasis brought in by family for evaluation of generalized weakness, fever, nausea, vomiting, diarrhea and altered mental status Vitals remarkable for temperature 100.9 Exam remarkable for dry mucous membranes Rhythm strip independently interpreted by me: Sinus rhythm, rate 90, no ectopy. Chest x-ray IMPRESSION: No radiographic evidence of acute cardiopulmonary process. CBC remarkable for WBC 3.4, CMP remarkable for potassium 3.4, lactate normal, influenza and COVID pending, UA pending Patient treated with the following in the ED: 30 cc/kilogram LR bolus, cefepime 2 g IV, vancomycin per pharmacy IV, Zofran 4 mg IV, effervescent potassium 50 mEq p.o. On re-evaluation after IV fluid bolus, blood pressure has improved. Other vital s were stable. Plan is to admit the patient for IV antibiotics and neurology/ID evaluation Time of 1ST Reevaluation: 19:16 Reevaluation 1ST: Unchanged Patient Education/Counseling: Diagnosis, Treatment, Need For Follow Up Family Education/Counseling: Diagnosis, Treatment, Need For Follow Up SEPSIS Sepsis Screen Date sepsis recognized/suspect: Oct 07, 2024 Time Sepsis recognized/suspect: 1744 Recent Procedure: No On Antibiotic Therapy: No Respiratory Rate >20: No Heart Rate >90: Yes Temp<36 C (96.8 F) or >38.3 C: Yes SBP <90 or MAP <65 mmHG: No New Acute Mental Status Change: Yes (A&OX1) Is the patient on CPAP, BIPAP,: No Physician Orders Urinalysis (10/07/24 18:35) Accucheck (10/07/24 18:35) Blood Culture (10/07/24 18:35) Lactic Acid W/ Reflex Order (10/07/24 22:00) Notify Md If Map <65 Or Bp<90 (10/07/24 18:35) If Map<65 Start Vasopressor (10/07/24 18:35) Sepsis Reassesment After Fluid (10/07/24 19:35) Chest Xray 1 View (10/07/24 18:35) Rapid Influenza A&B (10/07/24 18:35) Covid19 Antigen Darling (10/07/24 ) Electrocardigram (10/07/24 18:40) Cefepime 1gm/ 50ml (Maxipime 1gm/50ml) (10/08/24 04:00) Vital Signs Date Time Temp Pulse Resp B/P (MAP) Pulse Ox O2 Delivery O2 Flow Rate FiO2 10/07/24 20:00 78 10/07/24 19:30 98.3 84 15 92/57 (69) 96 98.3 10/07/24 19:30 84 15 96 Room Air* 0 21 10/07/24 18:38 100.9 10/07/24 18:35 100.9 82 18 90/50 (63) 97 100.9 10/07/24 18:35 82 18 97 Room Air* 0 21 10/07/24 17:48 90 10/07/24 17:45 100.0 97 20 103/64 98 100.0 Laboratory Tests Test 10/07/24 18:49 Lactic Acid Level 1.1 mmol/L (0.4-2.0) White Blood Count 3.4 10^3/uL (4.4-10.8) L Medications Medications Dose Ordered Sig/Berto Route Start Time Stop Time Status Last Admin Dose Admin Acetaminophen 1,000 mg ONCE ONCE PO 10/07/24 18:45 10/07/24 18:46 DC 10/07/24 18:38 Cefepime HCl 50 ml @ 50 mls/hr ONCE ONCE IV 10/07/24 19:00 10/07/24 19:59 DC 10/07/24 19:57 Lactated Ringer's 1,850 ml @ 1,850 mls/hr ONCE ONCE IV 10/07/24 18:45 10/07/24 19:44 DC 10/07/24 18:41 Vancomycin HCl 200 ml @ 200 mls/hr ONCE ONCE IV 10/07/24 18:45 10/07/24 19:44 DC 10/07/24 18:44 Reassessment Post Fluid SEPSIS FOCUS EXAM(REASSESSMENT Sepsis reassessment focused exam completed. Date: 10/07/24 Time 20:03 Pulse Location: Radial Pulse Strength: Strong Capillary Refill Exam: < 3 seconds Skin Moisture: Dry Skin Tugor: WNL Skin Color: Pale Fingernail Color: WNL Departure 1 Departure Time of Disposition: 21:15 Impression: Primary Impression: Sepsis Additional Impressions: Febrile neutropenia Hypokalemia Disposition: ADMITTED INPATIENT Admit to: [facility] Condition: Guarded Critical Care Note Critical Care Time?: Yes (45 min-critical care time only) Critical care comment: Critical care time including multiple bedside re-evaluations, review of lab and imaging studies, and discussion of the case with the admitting provider. Patient is high risk for metabolic and/or hemodynamic decompensation. Stability Stability form required: No Heart Score Heart Score: Heart Score Response (Comments) Value History N/A 0 EKG N/A 0 Age N/A 0 Risk Factors N/A 0 Troponin N/A 0 Total 0 I personally scribed for SAMANTHA ORTEGA MD ([email or web address]) on 10/07/24 at 18:51. Electronically submitted by Sg Conteh ([email or web address]). I personally scribed for SAMANTHA ORTEGA MD ([email or web address]) on 10/07/24 at 20:26. Electronically submitted by Sg Conteh ([email or web address]). SAMANTHA ORTEGA MD Oct 07, 2024 18:51
[2024-10-07 19:13] LABS: Hematocrit 25.8 % (41.0-53.0); Hemoglobin 9.0 g/dL (13.5-17.5); Mean Corpuscular Hemoglobin 30.8 pg (28.0-32.0); Mean Corpuscular Volume 87.7 fL (80.0-100.0); Nucleated Red Blood Cells % 0.0 %
--- NOTE | 2024-10-07 19:28 | DVH ---
CHEST RADIOGRAPH REASON FOR EXAM: fever cough COMPARISON: XY CHEST XRAY 1 VIEW on DOS: 09/22/24, XY CHEST XRAY 1 VIEW on DOS: 09/14/24 TECHNIQUE: One view of the chest is provided FINDINGS: The cardiomediastinal silhouette is within normal limits for technique. There is no focal a irspace disease. There is no significant pleural effusion. No acute bony abnormality is identified. IMPRESSION: No radiographic evidence of acute cardiopulmonary process.
[2024-10-07 19:29] LABS: Alanine Aminotransferase 21 U/L (7-40); Anion Gap 8 (5-15); BUN/Creatinine Ratio 21.9 (10.0-20.0); Blood Urea Nitrogen 14 mg/dL (9-23); Carbon Dioxide 26 mmol/L (20-31); Chloride 103 mmol/L (98-107); Glucose 96 mg/dL (74-106); Sodium 137 mmol/L (136-145)
[2024-10-07 19:30] VITALS: PULSE 84; RESP 15; O2SAT 96
[2024-10-07 19:30] LABS: Bilirubin, Total 0.4 mg/dL (0.2-1.0)
[2024-10-07 19:31] LABS: Albumin 3.0 g/dL (3.2-4.8); Alkaline Phosphatase 133 U/L (46-116); Calcium 7.5 mg/dL (8.7-10.4); Potassium 3.4 mmol/L (3.5-5.1); Total Protein 5.5 g/dL (5.7-8.2)
[2024-10-07] MEDS: CEFEPIME 1GM/ 50ML 50 ML IV ONE (19:57)
[2024-10-07 20:06] LABS: INR 1.34 (0.9-1.15); Partial Thromboplastin Time 32.8 SEC (24.5-34.5); Prothrombin Time 13.8 sec (9.3-11.8)
[2024-10-07] MEDS: ONDANSETRON HCL 4 MG/2 ML VIAL IV ONE (21:12)
[2024-10-07] MEDS: POTASSIUM EFFERVESENT TAB 25 MEQ PO ONE (21:15)
[2024-10-07 21:19] LABS: COVID19 ANTIGEN SOFIA FIA NEGATIVE (NEGATIVE)
--- NOTE | 2024-10-07 21:58 | DVHHP2 ---
History of Present Illness Reason for Visit: Generalized weakness History of Present Illness The patient is a 58-year-old male with past medical history of anemia, HIV, DM, and esophageal candidiasis who presented to [facility] ED for evaluation of generalized weakness. Patient reports he has been experiencing gen eralized weakness associated with nausea, vomiting, diarrhea, fever, productive cough, altered level of consciousness that characterized by lethargy, and slowness to respond. Patient was seen and evaluated in the ED, laboratory data shows WBC 3.4, hemoglobin 9.0, hematocrit 25.8, platelets 164, sodium 137, potassium 3.4, BUN 14, creatinine 0.64, glucose 96, calcium 9.5, albumin 3.0, protein 5.5, blood pressure 92/57, heart rate 84, temperature 98.3 F, O2 saturation 96% on room air. Chest x-ray show no radiographic evidence of acute cardiopulmonary process. Please see medication orders section in the computer. On my assessment, patient denies chest pain, no headache, no dizziness, no shortness of breaths, no diaphoresis, abdominal pain, no nausea or vomiting at this moment, no fever, no chills. Patient was admitted for further evaluation and medical management. Past Medical History Anemia, DM, HIV, Esophageal candidiasis Past Surgical History Spine surgery Family History Reviewed, noncontributory to the management of this case. Past Social History The patient lives at home, denies smoking, alcohol or illicit drugs abuse. Review of Systems Constitutional: Yes: Weakness; No: Fever, Chills, Sweats, Malaise, Other Eyes: No: Pain, Vision change, Conjunctivae inflammation, Eyelid inflammation, Other, Redness ENT: No: Ear pain, Ear discharge, Nose pain, Nose discharge, Nose congestion, Mouth pain, Mouth swelling, Throat pain, Throat swelling, Other Respiratory: Cough; No: Dry, Shortness of breath, SOB with excertion, Wheezing, Hemoptysis, Pleuritic Pain, Sputum, Wheezing, Other Cardiovascular: No: Chest Pain, Palpitations, Orthopnea, Paroxysmal Noc. Dyspnea, Edema, Lt Headedness, Other Gastrointestinal: Nausea, Vomiting, Diarrhea; No: Abdominal Pain, Constipation, Melena, Hematochezia, Other Genitourinary: No Dysuria, No Frequency, No Incontinence, No Hematuria, No Retention, No Other Musculoskeletal: No: other, neck pain, shoulder pain, arm pain, back pain, hand pain, leg pain, foot pain Skin: No: Rash, Lesions, Jaundice, Bruising, Other Neurological: Confusion; No: Weakness, Numbness, Incoordination, Change in speech, Seizures, Other Allergies: Coded Allergies: NO KNOWN ALLERGIES (Unverified , 07/03/24) Medications Current Medications Medications Dose Ordered Sig/Berto Route Start Time Stop Time Status Last Admin Dose Admin Cefepime HCl 50 ml @ 12.5 mls/hr Q8H IV 10/08/24 04:00 Sodium Chloride 1,000 ml @ 60 mls/hr [id number] IV 10/07/24 22:00 UNV Acetaminophen/ Hydrocodone Bitart 1 tab Q4HP PRN PO 10/07/24 22:00 UNV Ondansetron HCl 4 mg Q4HP PRN IV 10/07/24 22:00 UNV Docusate Sodium 100 mg BIDPRN PRN PO 10/07/24 22:00 UNV Acetaminophen 650 mg Q6HP PRN PO 10/07/24 22:00 UNV Nitroglycerin 0.4 mg Q5MINP PRN SL 10/07/24 22:00 UNV Morphine Sulfate 2 mg Q30M PRN IV 10/07/24 22:00 UNV Exam Vital Signs Vital Signs Date Time Temp Pulse Resp B/P (MAP) Pulse Ox O2 Delivery O2 Flow Rate FiO2 10/07/24 20:00 78 10/07/24 19:30 98.3 15 92/57 (69) 96 98.3 10/07/24 19:30 Room Air* 0 21 General Appearance: Alert, Oriented X3, Cooperative, No acute distress HEENT: Atraumatic, PERRLA, EOMI, Mucous membr. moist/pink Respiratory: Normal air movement Cardiovascular: Regular rate, Normal S1, Normal S2, No murmurs Abdominal: Normal bowel sounds, Soft, No tenderness, No hepatospenomegaly, No masses Extremities: No clubbing, No cyanosis, No edema, Normal pulses, No tenderness/swelling Skin: No rashes, No breakdown, No significant lesion Neuro: Normal speech, Normal tone, Sensation intact, Cranial nerves 3-12 NL, Reflexes 2+, Other (Generalized weakness) Psych/Mental Status: Mental status NL, Mood NL Labs/Xrays Labs Test 10/07/24 19:55 10/07/24 18:49 Range/Units Influenza Type A Antigen Negative Negative Influenza Type B Antigen Negative Negative SARS-CoV-2 Antigen (Rapid) Negative NEGATIVE White Blood Count 3.4 L 4.4-10.8 10^3/uL Red Blood Count 2.94 L 4.5-5.90 10^6/uL Hemoglobin 9.0 L 13.5-17.5 g/dL Hematocrit 25.8 L 41.0-53.0 % Mean Corpuscular Volume 87.7 80.0-100.0 fL Mean Corpuscular Hemoglobin 30.8 28.0-32.0 pg Mean Corpuscular Hemoglobin Concent 35.1 32.0-36.0 g/dL Red Cell Distribution Width 14.7 H 11.8-14.3 % Platelet Count 164 140-450 10^3/uL Mean Platelet Volume 7.4 6.9-10.8 fL Neutrophils (%) (Auto) 76.9 37.0-80.0 % Lymphocytes (%) (Auto) 14.3 10.0-50.0 % Monocytes (%) (Auto) 8.0 0.0-12.0 % Eosinophils (%) (Auto) 0.4 0.0-7.0 % Basophils (%) (Auto) 0.4 0.0-2.0 % Neutrophils # (Auto) 2.6 1.6-8.6 10 ^3/uL Lymphocytes # (Auto) 0.5 0.4-5.4 10 ^3/uL Monocytes # (Auto) 0.3 0-1.3 10 ^3/uL Eosinophils # (Auto) 0 0-0.8 10 ^3/uL Basophils # (Auto) 0 0-0.2 10 ^3/uL Nucleated Red Blood Cells 0.0 % Prothrombin Time 13.8 H 9.3-11.8 sec Prothrombin Time INR 1.34 H 0.9-1.15 Activated Partial Thromboplast Time 32.8 24.5-34.5 SEC Sodium Level 137 136-145 mmol/L Potassium Level 3.4 L 3.5-5.1 mmol/L Chloride Level 103 98-107 mmol/L Carbon Dioxide Level 26 20-31 mmol/L Anion Gap 8 5-15 Blood Urea Nitrogen 14 9-23 mg/dL Creatinine 0.64 L 0.700-1.30 mg/dL Glomerular Filtration Rate Calc 110 >90 mL/min BUN/Creatinine Ratio 21.9 H 10.0-20.0 Serum Glucose 96 74-106 mg/dL Lactic Acid Level 1.1 0.4-2.0 mmol/L Calcium Level 7.5 L 8.7-10.4 mg/dL Total Bilirubin 0.4 0.2-1.0 mg/dL Aspartate Amino Transferase (AST) 35 13-40 U/L Alanine Aminotransferase (ALT) 21 7-40 U/L Alkaline Phosphatase 133 H 46-116 U/L Total Protein 5.5 L 5.7-8.2 g/dL Albumin 3.0 L 3.2-4.8 g/dL PATIENT: CRISTIAN JOHNSON ACCT: [id number] UNIT: [id number] : 1965 LOC: ER ROOM / BED: / AGE / SEX: 58 / M ADM STATUS: REG ER SERVICE 34 ORDERING PHYSICIAN: SAMANTHA ORTEGA MD PROCEDURE(s): CXR1 - CHEST XRAY 1 VIEW REASON: fever cough ORDER NUMBER(s): [id number], ACCESSION NUMBER(s): [id number] CHEST RADIOGRAPH REASON FOR EXAM: fever cough COMPARISON: XY CHEST XRAY 1 VIEW on DOS: 09/22/24, XY CHEST XRAY 1 VIEW on DOS: 09/14/24 TECHNIQUE: One view of the chest is provided FINDINGS: The cardiomediastinal silhouette is within normal limits for technique. There is no focal airspace disease. There is no significant pleural effusion. No acute bony abnormality is identified. IMPRESSION: No radiographic evidence of acute cardiopulmonary process. SEPSIS Sepsis Screen Date sepsis recognized/suspect: Oct 07, 2024 Time Sepsis recognized/suspect: 1929 Recent Procedure: No On Antibiotic Therapy: No Respiratory Rate >20: No Heart Rate >90: No Temp<36 C (96.8 F) or >38.3 C: No SBP <90 or MAP <65 mmHG: No New Acute Mental Status Change: No Is the patient on CPAP, BIPAP,: No Physician Orders Urinalysis (10/07/24 18:35) Accucheck (10/07/24 18:35) Blood Culture (10/07/24 18:35) Lactic Acid W/ Reflex Order (10/07/24 22:00) Notify Md If Map <65 Or Bp<90 (10/07/24 18:35) If Map<65 Start Vasopressor (10/07/24 18:35) Sepsis Reassesment After Fluid (10/07/24 19:35) Chest Xray 1 View (10/07/24 18:35) Electrocardigram (10/07/24 18:40) Cefepime 1gm/ 50ml (Maxipime 1gm/50ml) (10/08/24 04:00) Admit (10/07/24 21:47) Allergies (10/07/24:47) Code Status (10/07/24:47) Sodium Chloride 0.9% (10/07/24 22:00) Oxygen Per Hour (10/07/24:47) Hydrocodone-Acet 5/325mg Tab ([place] 5/32 (10/07/24 22:00) Ondansetron Hcl (Zofran) (10/07/24 22:00) Docusate Sodium Capsule (Colace Capsule) (10/07/24 22:00) Complete Blood Count (10/08/24 04:00) Comprehensive Metabolic Panel (10/08/24 04:00) Cardiac Diet-2gna,Lofat,Lochol (10/08/24 Breakfast) Condition: Serious (10/07/24 21:47) Acetaminophen Tablet (Tylenol Tablet) (10/07/24 22:00) Bedrest With Bathroom Privileg (10/07/24:47) Sequential Compression Device (10/07/24 ) Nitroglycerin Sublingual (Ntrostat Subli (10/07/24 22:00) Morphine Sulfate Injection (10/07/24 22:00) Stat Ekg For Chest Pain (10/07/24:47) Notify Md Of Changes From Base (10/07/24 21:47) [employer] Executive For 24 Hours (10/07/24 21:47) Emergency Dysrhythmia Protocol (10/07/24 21:47) Rhythm Strips Once Every Shift (10/07/24 21:47) Oxygen By Nasal Cannula (10/07/24 21:47) Vital Signs Date Time Temp Pulse Resp B/P (MAP) Pulse Ox O2 Delivery O2 Flow Rate FiO2 10/07/24 20:00 78 10/07/24 19:30 98.3 84 15 92/57 (69) 96 98.3 10/07/24 19:30 84 15 96 Room Air* 0 21 10/07/24 18:38 100.9 10/07/24 18:35 100.9 82 18 90/50 (63) 97 100.9 10/07/24 18:35 82 18 97 Room Air* 0 21 10/07/24 17:48 90 10/07/24 17:45 100.0 97 20 103/64 98 100.0 Laboratory Tests Test 10/07/24 18:49 Lactic Acid Level 1.1 mmol/L (0.4-2.0) White Blood Count 3.4 10^3/uL (4.4-10.8) L Medications Medications Dose Ordered Sig/Berto Route Start Time Stop Time Status Last Admin Dose Admin Acetaminophen 1,000 mg ONCE ONCE PO 10/07/24 18:45 10/07/24 18:46 DC 10/07/24 18:38 1,000 MG Cefepime HCl 50 ml @ 50 mls/hr ONCE ONCE IV 10/07/24 19:00 10/07/24 19:59 DC 10/07/24 19:57 50 MLS/HR Lactated Ringer's 1,850 ml @ 1,850 mls/hr ONCE ONCE IV 10/07/24 18:45 10/07/24 19:44 DC 10/07/24 18:41 1,850 MLS/HR Ondansetron HCl 4 mg ONCE ONCE IV 10/07/24 19:15 10/07/24 19:17 DC 10/07/24 21:12 4 MG Vancomycin HCl 200 ml @ 200 mls/hr ONCE ONCE IV 10/07/24 18:45 10/07/24 19:44 DC 10/07/24 18:44 200 MLS/HR Reassessment Post Fluid Pulse Location: Radial Pulse Strength: Strong Capillary Refill Exam: < 3 seconds Skin Moisture: Dry Skin Tugor: WNL Skin Color: Pale Fingernail Color: WNL Assessment/Plan Assessment/Plan Generalized weakness Anemia, unspecified Hypokalemia Febrile neutropenia Plan 1. Admit to telemetry unit 2. Breathing treatment 3. Pain control management 4. IV antibiotic management 5. Management of fluids and electrolytes 6. Consultation for hospitalist 7. Diagnostic test chest x-ray 8. DVT prophylaxis on SCDs 9. Repeat labs CBC, CMP in a.m. 10. Home medication reviewed and reconciled 11. Continue with current medical management 12. Treatment plan discussed with patient and RN. Patient verbalized understanding. Plan discussed with: Patient, Other (RN) My Orders Orders - KATHRYN SANCHEZ DNP Procedure Category Date Status Time Admit ADMIT 10/07/24 Transmitted 21:47 Allergies ALEYDA 10/07/24 In Process 21:47 Code Status CODE 10/07/24 Transmitted 21:47 Sodium Chloride 0.9% PHA 10/07/24 Logged 22:00 Oxygen Per Hour RT 10/07/24 Transmitted 21:47 Hydrocodone-Acet PHA 10/07/24 Logged 5/325mg Tab ([place] 22:00 Ondansetron Hcl PHA 10/07/24 Logged (Zofran) 22:00 Docusate Sodium PHA 10/07/24 Logged Capsule (Colace 22:00 Complete Blood Count LAB 10/08/24 Verified 04:00 Comprehensive LAB 10/08/24 Verified Metabolic Panel 04:00 Cardiac DIET 10/08/24 Transmitted Diet-2gna,Lofat,Lochol Breakfast Condition: Serious ALEYDA 10/07/24 In Process 21:47 Acetaminophen Tablet PHA 10/07/24 Logged (Tylenol Tablet) 22:00 Bedrest With Bathroom ALEYDA 10/07/24 In Process Privileg 21:47 Sequential ALEYDA 10/07/24 In Process Compression Device Nitroglycerin PHA 10/07/24 Logged Sublingual (Ntrostat 22:00 Morphine Sulfate PHA 10/07/24 Logged Injection 22:00 Stat Ekg For Chest ALEYDA 10/07/24 In Process Pain 21:47 Notify Md Of Changes ALEYDA 10/07/24 In Process From Base 21:47 [employer] Executive For ALEYDA 10/07/24 In Process 24 Hours 21:47 Emergency Dysrhythmia ALEYDA 10/07/24 In Process Protocol 21:47 Rhythm Strips Once ALEYDA 10/07/24 In Process Every Shift 21:47 Oxygen By Nasal RT 10/07/24 Transmitted Cannula 21:47 Problem List: (1) Generalized weakness (2) Anemia, unspecified (3) Hypokalemia (4) Febrile neutropenia Date of Service: Oct 07, 2024 Billing Provider: KATHRYN SANCHEZ DNP Common Visit Codes: [id number] INP/OBS CARE (HIGH) KATHRYN SANCHEZ DNP Oct 07, 2024 21:58
[2024-10-07] MEDS ORDERED: MORPHINE SULFATE INJ 2 MG/ml SYRG IV PRN (22:00)
[2024-10-07] MEDS ORDERED: NITROGLYCERIN 0.4 MG SL TAB SL PRN (22:00)
[2024-10-07] MEDS: CALCIUM GLUC 1,000mg/50ml-NS 50 ML IV ONE (22:00)
[2024-10-07] MEDS ORDERED: HYDROcodone-ACET 5/325MG TAB PO PRN (22:00)
[2024-10-07] MEDS ORDERED: ONDANSETRON HCL 4 MG/2 ML VIAL IV PRN (22:00)
[2024-10-07] MEDS ORDERED: DOCUSATE SOD 100 MG CAP PO PRN (22:00)
[2024-10-07] MEDS: SODIUM CHLORIDE 0.9% 1,000 ML IV SCH (23:17)
[2024-10-08] VITALS (8 sets, daily range): BP systolic 94–161; BP diastolic 55–104; PULSE 64–101; RESP 16–22; TEMP 97.8–98.4; O2SAT 96–99
[2024-10-08 03:51] LABS: Hematocrit 33.1 % (41.0-53.0); Hemoglobin 11.3 g/dL (13.5-17.5); Mean Corpuscular Hemoglobin 30.3 pg (28.0-32.0); Mean Corpuscular Volume 88.9 fL (80.0-100.0); Nucleated Red Blood Cells % 0.1 %
[2024-10-08 04:12] LABS: Alanine Aminotransferase 21 U/L (7-40); Anion Gap 8 (5-15); BUN/Creatinine Ratio 19.2 (10.0-20.0); Blood Urea Nitrogen 10 mg/dL (9-23); Carbon Dioxide 27 mmol/L (20-31); Chloride 104 mmol/L (98-107); Glucose 103 mg/dL (74-106); Sodium 139 mmol/L (136-145); Total Protein 5.8 g/dL (5.7-8.2)
[2024-10-08 04:13] LABS: Bilirubin, Total 0.5 mg/dL (0.2-1.0)
[2024-10-08 04:15] LABS: Albumin 3.1 g/dL (3.2-4.8); Alkaline Phosphatase 129 U/L (46-116); Calcium 7.9 mg/dL (8.7-10.4); Potassium 3.2 mmol/L (3.5-5.1)
[2024-10-08] MEDS: CEFEPIME 1GM/ 50ML 50 ML IV SCH (04:28)
[2024-10-08] MEDS: POTASSIUM EFFERVESENT TAB 25 MEQ GT ONE (04:58)
[2024-10-08 11:23] LABS: Urine Protein, UAD Negative (Negative)
--- NOTE | 2024-10-08 11:45 | DVHPN2 ---
Reviewed: Care Plan, H&P, Labs, Medications, Previous Orders, Radiology Changes from previous H/P or p: No Changes Eyes: No Pain, No Vision change, No Conjunctivae inflammation, No Eyelid inflammation, No Other, No Redness ENT: No Ear pain, No Ear discharge, No Nose pain, No Nose discharge, No Nose congestion, No Mouth pain, No Mouth swelling, No Throat pain, No Throat swelling, No Other Cardiovascular: No Chest Pain, No Palpitations, No Orthopnea, No Paroxysmal Noc. Dyspnea, No Edema, No Lt Headedness, No Other Respiratory: Cough; No Dry, No Shortness of breath, No SOB with excertion, No Wheezing, No Hemoptysis, No Pleuritic Pain, No Sputum, No Other Gastrointestinal: Nausea, Vomiting; No Abdominal Pain; Diarrhea; No Constipation, No Melena, No Hematochezia, No Other Genitourinary: No Dysuria, No Frequency, No Incontinence, No Hematuria, No Retention, No Other Musculoskeletal: No other, No neck pain, No shoulder pain, No arm pain, No back pain, No hand pain, No leg pain, No foot pain Skin: No Rash, No Lesions, No Jaundice, No Bruising, No Other Objective Vitals Vital Signs Date Time Temp Pulse Resp B/P (MAP) Pulse Ox O2 Delivery O2 Flow Rate FiO2 10/08/24 08:00 99 10/08/24 08:00 98.1 20 102/62 (75) 99 98.1 10/07/24 19:30 Room Air* 0 21 Medications Current Medications Medications Dose Ordered Sig/Berto Route Start Time Stop Time Status Last Admin Dose Admin Cefepime HCl 50 ml @ 12.5 mls/hr Q8H IV 10/08/24 04:00 10/08/24 04:28 12.5 MLS/HR Sodium Chloride 1,000 ml @ 60 mls/hr [id number] IV 10/07/24 22:00 10/07/24 23:17 60 MLS/HR Acetaminophen/ Hydrocodone Bitart 1 tab Q4HP PRN PO 10/07/24 22:00 Ondansetron HCl 4 mg Q4HP PRN IV 10/07/24 22:00 Docusate Sodium 100 mg BIDPRN PRN PO 10/07/24 22:00 Acetaminophen 650 mg Q6HP PRN PO 10/07/24 22:00 Nitroglycerin 0.4 mg Q5MINP PRN SL 10/07/24 22:00 Morphine Sulfate 2 mg Q30M PRN IV 10/07/24 22:00 Laboratory Results Laboratory Tests 10/08/24 03:10 Chemistry Test 10/07/24 18:49 10/08/24 03:10 Albumin 3.0 g/dL (3.2-4.8) L 3.1 g/dL (3.2-4.8) L Calcium Level 7.5 mg/dL (8.7-10.4) L 7.9 mg/dL (8.7-10.4) L Total Protein 5.5 g/dL (5.7-8.2) L 5.8 g/dL (5.7-8.2) Coagulation Test 10/07/24 18:49 Prothrombin Time 13.8 sec (9.3-11.8) H Prothrombin Time INR 1.34 (0.9-1.15) H Activated Partial Thromboplast Time 32.8 SEC (24.5-34.5) LFT Test 10/07/24 18:49 10/08/24 03:10 Alanine Aminotransferase (ALT) 21 U/L (7-40) 21 U/L (7-40) Alkaline Phosphatase 133 U/L (46-116) H 129 U/L (46-116) H Aspartate Amino Transferase (AST) 35 U/L (13-40) 33 U/L (13-40) Total Bilirubin 0.4 mg/dL (0.2-1.0) 0.5 mg/dL (0.2-1.0) Urinalysis Test 10/08/24 11:12 Urine Color Light-yellow (Yellow) Urine Clarity Clear (Clear) Urine pH 6.0 (5.0-9.0) Urine Specific [place] 1.016 (1.001-1.035) Urine Protein Negative (Negative) Urine Ketones 1+ (Negative) H Urine Blood Negative /uL (Negative) Urine Nitrite Negative (Negative) Urine Bilirubin Negative (Negative) Urine Urobilinogen Normal mg/dL (Negative) Urine Leukocyte Esterase Negative /uL (Negative) Urine RBC <1 /hpf (0 - 3) Urine Microscopic WBC 5 /HPF (0-3) H Urine Squamous Epithelial Cells Few /hpf (<5) Urine Bacteria None seen /hpf (None Seen) Urine Hyaline Casts Few /lpf (0 - 2) Urine Mucus Few (None Seen) Urine Glucose Normal mg/dL (Normal) Labs and/or images reviewed: Labs reviewed by me, Image(s) reviewed by me Assessment/Plan Assessment/Plan Acute Hypokalemia 3.1: Replace potassium Leukopenia Anemia, unspecified Failure to thrive Generalized weakness HIV positive Esophageal candidiasis Medical noncompliance Recurrent admissions Plan discussed with: Patient Date of Service: Oct 08, 2024 Billing Provider: MARCO GREEN MD Common Visit Codes: [id number] INP/OBS CARE(HIGH) MARCO GREEN MD Oct 08, 2024 11:45
[2024-10-09] VITALS (8 sets, daily range): BP systolic 92–160; BP diastolic 55–92; PULSE 75–107; RESP 17–20; TEMP 97.7–100.5; O2SAT 91–98
--- NOTE | 2024-10-09 08:08 | ECG ---
[facility] Test Date: 2024-10-07 Test Time: 17:48:38 Pat Name: CRISTIAN JOHNSON Department: ED Room: 0212T B Gender: M [employer]ner: herbie : 1965 Requested By: SAMANTHA CUELLO Order Number: [id number] Reading MD: Moreno Guerrero Measurements Intervals [place] Rate: 90 P: 57 [place]: 143 QRS: -42 QRSD: 86 T: 45 QT: 479 QTc: 587 Interpretive Statements Sinus rhythm Inferior infarct, old Lateral leads are also involved Prolonged QT interval Baseline wander in lead(s) I,III,aVL,V2 Electronically Signed On 10-09-2024 22:05:45 PDT by Moreno Guerrero Please click the below link to view image of tracing.
--- NOTE | 2024-10-09 09:49 | DVHPN2 ---
Reviewed: Care Plan, H&P, Labs, Medications, Previous Orders, Radiology Changes from previous H/P or p: No Changes Eyes: No Pain, No Vision change, No Conjunctivae inflammation, No Eyelid inflammation, No Other, No Redness ENT: No Ear pain, No Ear discharge, No Nose pain, No Nose discharge, No Nose congestion, No Mouth pain, No Mouth swelling, No Throat pain, No Throat swelling, No Other Cardiovascular: No Chest Pain, No Palpitations, No Orthopnea, No Paroxysmal Noc. Dyspnea, No Edema, No Lt Headedness, No Other Respiratory: Cough; No Dry, No Shortness of breath, No SOB with excertion, No Wheezing, No Hemoptysis, No Pleuritic Pain, No Sputum, No Other Gastrointestinal: Nausea, Vomiting; No Abdominal Pain; Diarrhea; No Constipation, No Melena, No Hematochezia, No Other Genitourinary: No Dysuria, No Frequency, No Incontinence, No Hematuria, No Retention, No Other Musculoskeletal: No other, No neck pain, No shoulder pain, No arm pain, No back pain, No hand pain, No leg pain, No foot pain Skin: No Rash, No Lesions, No Jaundice, No Bruising, No Other Objective Vitals Vital Signs Date Time Temp Pulse Resp B/P (MAP) Pulse Ox O2 Delivery O2 Flow Rate FiO2 10/09/24 08:53 97.8 99 17 160/92 (114) 97 97.8 10/08/24 20:00 Room Air* 0 21 Intake/Output Intake and Output 10/09/24 07:00 Intake Total 590.0 ml Output Total 300 ml Balance 290.0 ml Intake Oral 200 ml IV Total 390.0 ml Output Urine Total 300 ml Medications Current Medications Medications Dose Ordered Sig/Berto Route Start Time Stop Time Status Last Admin Dose Admin Cefepime HCl 50 ml @ 12.5 mls/hr Q8H IV 10/08/24 04:00 10/09/24 04:04 12.5 MLS/HR Sodium Chloride 1,000 ml @ 60 mls/hr [id number] IV 10/07/24 22:00 10/09/24 08:46 60 MLS/HR Acetaminophen/ Hydrocodone Bitart 1 tab Q4HP PRN PO 10/07/24 22:00 Ondansetron HCl 4 mg Q4HP PRN IV 10/07/24 22:00 Docusate Sodium 100 mg BIDPRN PRN PO 10/07/24 22:00 Acetaminophen 650 mg Q6HP PRN PO 10/07/24 22:00 Nitroglycerin 0.4 mg Q5MINP PRN SL 10/07/24 22:00 Morphine Sulfate 2 mg Q30M PRN IV 10/07/24 22:00 Laboratory Results Laboratory Tests 10/08/24 03:10 Urinalysis Test 10/08/24 11:12 Urine Color Light-yellow (Yellow) Urine Clarity Clear (Clear) Urine pH 6.0 (5.0-9.0) Urine Specific [place] 1.016 (1.001-1.035) Urine Protein Negative (Negative) Urine Ketones 1+ (Negative) H Urine Blood Negative /uL (Negative) Urine Nitrite Negative (Negative) Urine Bilirubin Negative (Negative) Urine Urobilinogen Normal mg/dL (Negative) Urine Leukocyte Esterase Negative /uL (Negative) Urine RBC <1 /hpf (0 - 3) Urine Microscopic WBC 5 /HPF (0-3) H Urine Squamous Epithelial Cells Few /hpf (<5) Urine Bacteria None seen /hpf (None Seen) Urine Hyaline Casts Few /lpf (0 - 2) Urine Mucus Few (None Seen) Urine Glucose Normal mg/dL (Normal) Microbiology Microbiology Date/Time Source Procedure Growth Status 10/07/24 18:49 Blood Blood Culture - Preliminary NO GROWTH AFTER 24 HOURS OF INCUBATION. Resulted Labs and/or images reviewed: Labs reviewed by me, Image(s) reviewed by me Assessment/Plan Assessment/Plan Acute Hypokalemia 3.1: Replace potassium Leukopenia secondary to HIV Diarrhea in HIV patient: Consult for ID Dr. Raj Souza Anemia, unspecified Failure to thrive Generalized weakness HIV positive Esophageal candidiasis Medical noncompliance Recurrent admissions Son Patrice [phone] at bedside Patient lives with his second Plan discussed with: Patient Date of Service: Oct 09, 2024 Billing Provider: MARCO GREEN MD Common Visit Codes: [id number] INP/OBS CARE(HIGH) MARCO GREEN MD Oct 09, 2024 09:49
[2024-10-09] MEDS: POTASSIUM CHL 20 Meq TABLET PO SCH (11:26)
[2024-10-09] MEDS: ACETAMINOPHEN 325 MG TAB PO PRN (16:53)
[2024-10-10] VITALS (16 sets, daily range): BP systolic 99–158; BP diastolic 49–98; PULSE 78–127; RESP 18–41; TEMP 97.7–103.1; O2SAT 93–100
--- NOTE | 2024-10-10 09:31 | DVHPN2 ---
Reviewed: Care Plan, H&P, Labs, Medications, Previous Orders, Radiology Changes from previous H/P or p: No Changes Eyes: No Pain, No Vision change, No Conjunctivae inflammation, No Eyelid inflammation, No Other, No Redness ENT: No Ear pain, No Ear discharge, No Nose pain, No Nose discharge, No Nose congestion, No Mouth pain, No Mouth swelling, No Throat pain, No Throat swelling, No Other Cardiovascular: No Chest Pain, No Palpitations, No Orthopnea, No Paroxysmal Noc. Dyspnea, No Edema, No Lt Headedness, No Other Respiratory: Cough; No Dry, No Shortness of breath, No SOB with excertion, No Wheezing, No Hemoptysis, No Pleuritic Pain, No Sputum, No Other Gastrointestinal: Nausea, Vomiting; No Abdominal Pain; Diarrhea; No Constipation, No Melena, No Hematochezia, No Other Genitourinary: No Dysuria, No Frequency, No Incontinence, No Hematuria, No Retention, No Other Musculoskeletal: No other, No neck pain, No shoulder pain, No arm pain, No back pain, No hand pain, No leg pain, No foot pain Skin: No Rash, No Lesions, No Jaundice, No Bruising, No Other Objective Vitals Vital Signs Date Time Temp Pulse Resp B/P (MAP) Pulse Ox O2 Delivery O2 Flow Rate FiO2 10/10/24 08:51 98.4 106 20 158/98 (118) 97 98.4 10/09/24 20:00 Room Air* 0 21 Intake/Output Intake and Output 10/10/24 07:00 Intake Total 1230 ml Output Total 1175 ml Balance 55 ml Intake Oral 640 ml IV Total 590 ml Output Urine Total 1175 ml # Bowel Movements 2 Medications Current Medications Medications Dose Ordered Sig/Berto Route Start Time Stop Time Status Last Admin Dose Admin Cefepime HCl 50 ml @ 12.5 mls/hr Q8H IV 10/08/24 04:00 10/10/24 04:46 12.5 MLS/HR Sodium Chloride 1,000 ml @ 60 mls/hr [id number] IV 10/07/24 22:00 10/09/24 08:46 60 MLS/HR Acetaminophen/ Hydrocodone Bitart 1 tab Q4HP PRN PO 10/07/24 22:00 Ondansetron HCl 4 mg Q4HP PRN IV 10/07/24 22:00 Docusate Sodium 100 mg BIDPRN PRN PO 10/07/24 22:00 Acetaminophen 650 mg Q6HP PRN PO 10/07/24 22:00 10/09/24 16:53 650 MG Nitroglycerin 0.4 mg Q5MINP PRN SL 10/07/24 22:00 Morphine Sulfate 2 mg Q30M PRN IV 10/07/24 22:00 Potassium Chloride 40 meq DAILY PO 10/09/24 10:00 10/09/24 11:26 40 MEQ Laboratory Results Laboratory Tests 10/08/24 03:10 Urinalysis Test 10/08/24 11:12 Urine Color Light-yellow (Yellow) Urine Clarity Clear (Clear) Urine pH 6.0 (5.0-9.0) Urine Specific [place] 1.016 (1.001-1.035) Urine Protein Negative (Negative) Urine Ketones 1+ (Negative) H Urine Blood Negative /uL (Negative) Urine Nitrite Negative (Negative) Urine Bilirubin Negative (Negative) Urine Urobilinogen Normal mg/dL (Negative) Urine Leukocyte Esterase Negative /uL (Negative) Urine RBC <1 /hpf (0 - 3) Urine Microscopic WBC 5 /HPF (0-3) H Urine Squamous Epithelial Cells Few /hpf (<5) Urine Bacteria None seen /hpf (None Seen) Urine Hyaline Casts Few /lpf (0 - 2) Urine Mucus Few (None Seen) Urine Glucose Normal mg/dL (Normal) Microbiology Microbiology Date/Time Source Procedure Growth Status 10/07/24 18:49 Blood Blood Culture - Preliminary NO GROWTH AFTER 48 HOURS OF INCUBATION. Resulted Labs and/or images reviewed: Labs reviewed by me, Image(s) reviewed by me Assessment/Plan Assessment/Plan Acute Hypokalemia 3.1: Replace potassium Leukopenia secondary to HIV Diarrhea in HIV patient: Consult for ID Dr. Raj Souza Anemia, unspecified Failure to thrive Generalized weakness HIV positive Esophageal candidiasis Medical noncompliance Recurrent admissions Patient lives with his second Carina [phone] at bedside, discussed the poor prognosis with the with the help of real estate branch manager RUSS Olmos and she is agreeable for hospice placement. Discharged home on hospice. Plan discussed with: Patient, Spouse My Orders Orders - MARCO GREEN MD Procedure Category Date Status Time * Infectious Angel- Dr. DASH 10/09/24 Transmitted K Harley 09:44 Potassium Er Tablet PHA 10/09/24 In Process (Klor-Con Tablet) 10:00 Hemoglobin & LAB 10/10/24 Logged Hematocrit 08:53 Comprehensive LAB 10/10/24 Logged Metabolic Panel 08:53 Date of Service: Oct 10, 2024 Billing Provider: MARCO GREEN MD Common Visit Codes: [id number] INP/OBS CARE(HIGH) MARCO GREEN MD Oct 10, 2024 09:31
[2024-10-10] MEDS ORDERED: POTA-180 PO (09:38)
[2024-10-10] MEDS ORDERED: AZIT500T66 PO (09:38)
--- NOTE | 2024-10-10 09:41 | DVHDS2 ---
Discharge Summary Date of Admission Oct 07, 2024 at 21:47 Date of Discharge: Oct 10, 2024 Admitting Diagnosis Generalized weakness Wounds: None Labs/Diagnostic Data: Laboratory Results Test 10/08/24 11:12 10/08/24 03:10 10/07/24 22:05 10/07/24 19:55 Urine Color Light-yellow (Yellow) Urine Clarity Clear (Clear) Urine pH 6.0 (5.0-9.0) Urine Specific [place] 1.016 (1.001-1.035) Urine Protein Negative (Negative) Urine Ketones 1+ (Negative) Urine Blood Negative /uL (Negative) Urine Nitrite Negative (Negative) Urine Bilirubin Negative (Negative) Urine Urobilinogen Normal mg/dL (Negative) Urine Leukocyte Esterase Negative /uL (Negative) Urine RBC <1 /hpf (0 - 3) Urine Microscopic WBC 5 /HPF (0-3) Urine Squamous Epithelial Cells Few /hpf (<5) Urine Bacteria None seen /hpf (None Seen) Urine Hyaline Casts Few /lpf (0 - 2) Urine Mucus Few (None Seen) Urine Glucose Normal mg/dL (Normal) White Blood Count 2.1 10^3/uL (4.4-10.8) Red Blood Count 3.72 10^6/uL (4.5-5.90) Hemoglobin 11.3 g/dL (13.5-17.5) Hematocrit 33.1 % (41.0-53.0) Mean Corpuscular Volume 88.9 fL (80.0-100.0) Mean Corpuscular Hemoglobin 30.3 pg (28.0-32.0) Mean Corpuscular Hemoglobin Concent 34.0 g/dL (32.0-36.0) Red Cell Distribution Width 15.2 % (11.8-14.3) Platelet Count 169 10^3/uL (140-450) Mean Platelet Volume 7.7 fL (6.9-10.8) Neutrophils (%) (Auto) 75.2 % (37.0-80.0) Lymphocytes (%) (Auto) 16.6 % (10.0-50.0) Monocytes (%) (Auto) 6.2 % (0.0-12.0) Eosinophils (%) (Auto) 1.6 % (0.0-7.0) Basophils (%) (Auto) 0.4 % (0.0-2.0) Neutrophils # (Auto) 1.6 10 ^3/uL (1.6-8.6) Lymphocytes # (Auto) 0.3 10 ^3/uL (0.4-5.4) Monocytes # (Auto) 0.1 10 ^3/uL (0-1.3) Eosinophils # (Auto) 0 10 ^3/uL (0-0.8) Basophils # (Auto) 0 10 ^3/uL (0-0.2) Nucleated Red Blood Cells 0.1 % Sodium Level 139 mmol/L (136-145) Potassium Level 3.2 mmol/L (3.5-5.1) Chloride Level 104 mmol/L (98-107) Carbon Dioxide Level 27 mmol/L (20-31) Anion Gap 8 (5-15) Blood Urea Nitrogen 10 mg/dL (9-23) Creatinine 0.52 mg/dL (0.700-1.30) Glomerular Filtration Rate Calc 117 mL/min (>90) BUN/Creatinine Ratio 19.2 (10.0-20.0) Serum Glucose 103 mg/dL (74-106) Calcium Level 7.9 mg/dL (8.7-10.4) Total Bilirubin 0.5 mg/dL (0.2-1.0) Aspartate Amino Transferase (AST) 33 U/L (13-40) Alanine Aminotransferase (ALT) 21 U/L (7-40) Alkaline Phosphatase 129 U/L (46-116) Total Protein 5.8 g/dL (5.7-8.2) Albumin 3.1 g/dL (3.2-4.8) Lactic Acid Level 1.0 mmol/L (0.4-2.0) Influenza Type A Antigen Negative (Negative) Influenza Type B Antigen Negative (Negative) SARS-CoV-2 Antigen (Rapid) Negative (NEGATIVE) Test 10/07/24 18:49 Prothrombin Time 13.8 sec (9.3-11.8) Prothrombin Time INR 1.34 (0.9-1.15) Activated Partial Thromboplast Time 32.8 SEC (24.5-34.5) Other Laboratory Tests 10/08/24 03:10 Brief Hx & Hospital Course: 58-year-old male with a HIV on treatment by ID specialist came in for generalized weakness found to have leukopenia secondary to HIV patient also had diarrhea hypokalemia 3.1 potassium replaced. Possible community-acquired pneumonia treated with the antibiotics. Patient has a history of esophageal candidiasis and medication noncompliant with repeat admissions patient's general condition very poor cachectic and response very weakly to verbal stimuli. Carina at the bedside discussed with her about poor prognosis and she agreed to be placed on hospice. Discharged home on hospice prognosis very poor Prescription for azithromycin and potassium transmitted to the pharmacy Consults/Reason for consult None Operations or Procedures None Condition at Discharge: Poor Final Diagnosis/Problems List Acute Hypokalemia 3.1: Replace potassium Leukopenia secondary to HIV Diarrhea in HIV patient: Consult for ID Dr. Raj Souza Anemia, unspecified Failure to thrive Generalized weakness HIV positive Esophageal candidiasis Medical noncompliance Discharge Disposition: Hospice - Home Discharge Instruct/Medications Diet: Regular Activity: Bed rest Follow Up/Referral: Follow up with the hospice Dr Hamilton all previous home medications Medications: Sent to pharmacy Scheduled Azithromycin (Azithromycin), 1 TAB PO DAILY Naqjcanfwgc-Wwbcjjspkstmx-Xavx (Biktarvy 50-200-25 mg), 1 TAB PO QAM, (Reported) Fluconazole (Diflucan), 200 MG PO DAILY Nystatin (Mouth-Throat) (Mycostatin (Mouth-Throat)), 5 ML MT QID Pantoprazole Sodium Sesquihydr (Pantoprazole Sodium), 40 MG PO BID@0600,1700 Potassium Chloride (Potassium Chloride ER), 40 MEQ PO BID Potassium Chloride (Potassium Chloride ER), 20 MEQ PO BID Sucralfate (Carafate Susp), 1 GM GT QID@0600,1130,1700,2200 Sulfamethoxazole W/Trimethopri (Bactrim Ds Tablet), 1 TAB PO BID, (Reported) Scheduled PRN Loperamide Hcl (Imodium), 2 MG PO Q6HPRN PRN Miscellaneous Medications Azithromycin (Azithromycin), 600 MG PO, (Reported) Metformin Hydrochloride (Metformin Hcl), 850 MG PO, (Reported) 39 (Time taken for discharge summary 39 minutes) Discharge Statement: "Patient was advised to return to the ER or call 911 if any headaches, dizziness, shortness of breath, chest pain, abdominal pain, bleeding, fevers, or worsening of medical condition. Patient was counseled about treatment plan, medications, possible side effects, patientverbalized understanding. All questions were answered to the best of my ability. This discharge took greater then 30 minutes in planning, reviewing documentation, counseling the patient, and discussing with other team members." ASSESSMENT ASSESSMENT Hospital Course Poor prognosis Assessment Acute Hypokalemia 3.1: Replace potassium Leukopenia secondary to HIV Diarrhea in HIV patient: Consult for ID Dr. Raj Souza Anemia, unspecified Failure to thrive Generalized weakness HIV positive Esophageal candidiasis Medical noncompliance Date of Service: Oct 10, 2024 Billing Provider: MARCO GREEN MD Common Visit Codes: [id number] DISCH DAY >30min MARCO GREEN MD Oct 10, 2024 09:41
[2024-10-10 13:44] LABS: Hematocrit 31.1 % (41.0-53.0); Hemoglobin 10.7 g/dL (13.5-17.5)
[2024-10-10 13:59] LABS: Alanine Aminotransferase 17 U/L (7-40); Albumin 3.1 g/dL (3.2-4.8); Alkaline Phosphatase 108 U/L (46-116); Anion Gap 9 (5-15); BUN/Creatinine Ratio 22.5 (10.0-20.0); Bilirubin, Total 0.7 mg/dL (0.2-1.0); Blood Urea Nitrogen 9 mg/dL (9-23); Calcium 7.3 mg/dL (8.7-10.4); Carbon Dioxide 26 mmol/L (20-31); Chloride 96 mmol/L (98-107); Glucose 88 mg/dL (74-106); Potassium 3.4 mmol/L (3.5-5.1); Sodium 131 mmol/L (136-145); Total Protein 5.7 g/dL (5.7-8.2)
[2024-10-10] MEDS ORDERED: LORazepam 2MG/ML-1ML VIAL IM ONE (14:30)
--- NOTE | 2024-10-10 16:09 | DVHINCON2 ---
Date of service: Oct 09, 2024 Family History: Diabetes mellitus G8 MOTHER Diabetes mellitus (DM) Allergies: Coded Allergies: NO KNOWN ALLERGIES (Unverified , 07/03/24) Home Meds Active Scripts Potassium Chloride (Potassium Chloride ER) 20 Meq Tab, 20 MEQ PO BID, #40 TAB Prov:MARCO GREEN MD 10/10/24 Azithromycin (Azithromycin) 500 Mg Tab, 1 TAB PO DAILY, #7 TAB Prov:MARCO GREEN MD 10/10/24 Potassium Chloride (Potassium Chloride ER) 20 Meq Tab, 40 MEQ PO BID, #120 TAB 5 Refills Prov:YURY MUHAMMAD MD 09/26/24 Fluconazole (Diflucan) 200 Mg Tab, 200 MG PO DAILY, #14 TAB Prov:YURY MUHAMMAD MD 09/26/24 Nystatin (Mouth-Throat) (Mycostatin (Mouth-Throat)) 500,000 Units/5 Ml Ss, 5 ML MT QID, #473 ML 5 Refills Prov:YURY MUHAMMAD MD 09/26/24 Sucralfate (CARAFATE SUSP) 1 Gm/10 Ml Ss, 1 GM GT QID@0600,1130,1700,2200, #600 ML 5 Refills Prov:YURY MUHAMMAD MD 09/26/24 Pantoprazole Sodium Sesquihydr (Pantoprazole Sodium) 40 Mg Tab, 40 MG PO BID@0600,1700, #60 TAB 5 Refills Prov:YURY MUHAMMAD MD 09/26/24 Loperamide Hcl (Imodium) 2 Mg Cp, 2 MG PO Q6HPRN PRN, #60 CAP 3 Refills Prov:YURY MUHAMMAD MD 09/26/24 Reported Medications Metformin Hydrochloride (Metformin Hcl) 850 Mg Tab, 850 MG PO, TAB 08/30/24 Ievylxhnqzo-Gpnjasdrgrpcb-Veuw (Biktarvy 50-200-25 mg) 1 Tab Tab, 1 TAB PO QAM, TAB 08/30/24 Azithromycin (Azithromycin) 200 Mg/5 Ml Susi, 600 MG PO, ML 08/30/24 Sulfamethoxazole W/Trimethopri (Bactrim Ds Tablet) 1 Tab Tb, 1 TAB PO BID, TAB 08/30/24 Vital Signs Vital Signs Date Time Temp Pulse Resp B/P (MAP) Pulse Ox O2 Delivery O2 Flow Rate FiO2 10/10/24 15:51 98.7 78 18 96 10/10/24 13:00 144/88 (106) 10/10/24 08:00 Room Air* 0 21 Labs/Diagnostic Data Labs Test 10/10/24 13:01 10/08/24 11:12 10/08/24 03:10 10/07/24 22:05 Range/Units Hemoglobin 10.7 L 13.5-17.5 g/dL Hematocrit 31.1 L 41.0-53.0 % Sodium Level 131 #L 136-145 mmol/L Potassium Level 3.4 L 3.5-5.1 mmol/L Chloride Level 96 L 98-107 mmol/L Carbon Dioxide Level 26 20-31 mmol/L Anion Gap 9 5-15 Blood Urea Nitrogen 9 9-23 mg/dL Creatinine 0.40 L 0.700-1.30 mg/dL Glomerular Filtration Rate Calc 126 >90 mL/min BUN/Creatinine Ratio 22.5 H 10.0-20.0 Serum Glucose 88 74-106 mg/dL Calcium Level 7.3 L 8.7-10.4 mg/dL Total Bilirubin 0.7 0.2-1.0 mg/dL Aspartate Amino Transferase (AST) 31 13-40 U/L Alanine Aminotransferase (ALT) 17 7-40 U/L Alkaline Phosphatase 108 46-116 U/L Total Protein 5.7 5.7-8.2 g/dL Albumin 3.1 L 3.2-4.8 g/dL Urine Color Light-yellow Yellow Urine Clarity Clear Clear Urine pH 6.0 5.0-9.0 Urine Specific [place] 1.016 1.001-1.035 Urine Protein Negative Negative Urine Ketones 1+ H Negative Urine Blood Negative Negative /uL Urine Nitrite Negative Negative Urine Bilirubin Negative Negative Urine Urobilinogen Normal Negative mg/dL Urine Leukocyte Esterase Negative Negative /uL Urine RBC <1 0 - 3 /hpf Urine Microscopic WBC 5 H 0-3 /HPF Urine Squamous Epithelial Cells Few <5 /hpf Urine Bacteria None seen None Seen /hpf Urine Hyaline Casts Few 0 - 2 /lpf Urine Mucus Few None Seen Urine Glucose Normal Normal mg/dL White Blood Count 2.1 L 4.4-10.8 10^3/uL Red Blood Count 3.72 L 4.5-5.90 10^6/uL Mean Corpuscular Volume 88.9 80.0-100.0 fL Mean Corpuscular Hemoglobin 30.3 28.0-32.0 pg Mean Corpuscular Hemoglobin Concent 34.0 32.0-36.0 g/dL Red Cell Distribution Width 15.2 H 11.8-14.3 % Platelet Count 169 140-450 10^3/uL Mean Platelet Volume 7.7 6.9-10.8 fL Neutrophils (%) (Auto) 75.2 37.0-80.0 % Lymphocytes (%) (Auto) 16.6 10.0-50.0 % Monocytes (%) (Auto) 6.2 0.0-12.0 % Eosinophils (%) (Auto) 1.6 0.0-7.0 % Basophils (%) (Auto) 0.4 0.0-2.0 % Neutrophils # (Auto) 1.6 1.6-8.6 10 ^3/uL Lymphocytes # (Auto) 0.3 L 0.4-5.4 10 ^3/uL Monocytes # (Auto) 0.1 0-1.3 10 ^3/uL Eosinophils # (Auto) 0 0-0.8 10 ^3/uL Basophils # (Auto) 0 0-0.2 10 ^3/uL Nucleated Red Blood Cells 0.1 % Lactic Acid Level 1.0 0.4-2.0 mmol/L Test 10/07/24 19:55 10/07/24 18:49 Range/Units Influenza Type A Antigen Negative Negative Influenza Type B Antigen Negative Negative SARS-CoV-2 Antigen (Rapid) Negative NEGATIVE Prothrombin Time 13.8 H 9.3-11.8 sec Prothrombin Time INR 1.34 H 0.9-1.15 Activated Partial Thromboplast Time 32.8 24.5-34.5 SEC Microbiology Date/Time Source Procedure Growth Status 10/07/24 18:49 Blood Blood Culture - Preliminary NO GROWTH AFTER 48 HOURS OF INCUBATION. Resulted Problems(with codes): (1) AIDS (2) HIV (human immunodeficiency virus infection) (3) Anemia, unspecified (4) Febrile neutropenia (5) Sepsis (6) Generalized weakness (7) Failure to thrive (8) Esophagitis Plan/Recommendation ASSESSMENT AND PLAN: ID Problem List: \-- HIV/AIDS (history of noncompliance) \-- Esophageal candidiasis (TTC) \-- Diabetes mellitus \-- Anemia \-- Generalized weakness \-- Fever \-- Nausea, vomiting, diarrhea \-- History of spinal surgery Assessment Saleem Allen is a 58 y.o. male with a past medical history of HIV/AIDS (history of noncompliance), diabetes mellitus, esophageal candidiasis (TTC), anemia, and prior spinal surgery, presenting with generalized weakness, nausea, vomiting, diarrhea, fever, and cough. Current management consideration is to avoid azithromycin and fluconazole due to the specific clinical context. Instead, recommend nystatin swish and swallow in place of systemic antifungal, and to forego other oral prophylactic antimicrobial therapy at this time. Plan: \-- Avoid azithromycin and fluconazole at this time \-- Initiate nystatin swish and swallow in place of fluconazole for esophageal candidiasis \-- no need to reinitiate ART therapy given GOC to pursue hospice therapy \-- bactrim 1DS daily may provide symptomatic relief, can resume this. \-- Continue monitoring for changes in clinical status \-- Supportive care and monitoring of symptoms \-- Hospice and palliative teams continue to follow per prior plan Isolation Precautions: standard \*Assessment and plan were discussed with the patient as written above \*Plan is subject to change pending incorporation of new incoming information/diagnostics. Updates may be added as addendum at the bottom (OR TOP) of this note Thank you for interesting consult. ID will continue to follow. Please contact Infectious Disease for any questions or concerns. Trisha Souza M.D. [facility] Ph: ? Teams text: [email or web address] Electronically signed by: Trisha Souza MD, 10/10/2024 \ History: The patient's chart and medications were reviewed in detail and the patient was seen and examined. History obtained from: patient Saleem Allen is a 58 y.o. male with a past medical history of HIV/AIDS (history of noncompliance), diabetes mellitus, esophageal candidiasis (TTC), anemia, and prior spinal surgery, presenting with generalized weakness, nausea, vomiting, diarrhea, fever, and cough. No new changes reported to history today. Review of Systems: A complete 10-system review of systems was completed and negative except as noted in the HPI or here. ROS: -CONSTITUTIONAL: Not discussed today. -HEENT: Not discussed today. -RESPIRATORY: Not discussed today. -CV: Not discussed today. -GI: Not discussed today. -: Not discussed today. -MSK: Not discussed today. -SKIN: Not discussed today. -NEUROLOGICAL: Not discussed today. -PSYCHIATRIC: Not discussed today. Past Medical History: Diagnosis Date HIV/AIDS noncompliant Diabetes mellitus Esophageal candidiasis (TTC) Anemia Prior spinal surgery Past Surgical History: History reviewed. Prior spinal surgery. Home Medications: \-- Azithromycin: to be avoided \-- Fluconazole: to be avoided \-- Nystatin swish and swallow: to be initiated \-- No additional home medications reported in transcript Allergies: No Known Allergies Family History: Not provided in transcript. Social History: Not provided in transcript. Social Determinants of Health: Not discussed today. Objective: Vital Signs on Arrival: Not provided in transcript. Most Recent Vital Signs: Not provided in transcript. Weight/BMI: Not provided in transcript. Physical Exam: General: NAD Neck: Supple. No masses. HEENT: PERRL. Normal lids and conjunctiva. Moist mucous membranes. Oropharynx without lesions, exudates or excessive erythema. Normal appearance of the external aspects of the nose and ears. Heart: Regular rhythm, normal rate. No murmur. No lower extremity edema. Lungs: Normal respiratory effort. Clear to auscultation bilaterally. No wheezes. No crackles. Abdomen: Soft. Non-tender. Non-distended. No masses or abdominal hernia. Msk: No digital cyanosis. Normal strength and tone in all 4 limbs Skin: Warm and dry, no rashes. Neuro: Alert. No facial droop or slurred speech. Extra-ocular movements intact. Sensation intact to soft touch in all 4 limbs. Psych: Appropriate mood. Full affect. Oriented to person, place, time, and situation. Lines: Not provided in transcript. Diagnostic Studies: Available diagnostic studies were reviewed personally. No new results provided in today's transcript. Pertinent Imaging: Not provided in transcript. Plan discussed with: Patient TRISHA SOUZA MD Oct 10, 2024 16:09
--- NOTE | 2024-10-10 16:36 | DVHPN2 ---
Consult Progress Note Date Seen: Oct 10, 2024 Subjective Patient reports: Feels better (remains weak but is more alert today) Objective vital signs Vital Sign Date Time Temp Pulse Resp B/P (MAP) Pulse Ox O2 Delivery O2 Flow Rate FiO2 10/10/24 15:51 98.7 78 18 96 10/10/24 13:00 144/88 (106) 10/10/24 08:00 Room Air* 0 21 Total Intake and Output 10/09/24 10/09/24 10/10/24 15:00 23:00 07:00 Intake Total 420 ml 810 ml Output Total 650 ml 525 ml Balance 420 ml 160 ml -525 ml medications Current Medications Medications Dose Ordered Sig/Berto Route Start Time Stop Time Status Last Admin Dose Admin Cefepime HCl 50 ml @ 12.5 mls/hr Q8H IV 10/08/24 04:00 10/10/24 12:23 12.5 MLS/HR Sodium Chloride 1,000 ml @ 60 mls/hr [id number] IV 10/07/24 22:00 10/09/24 08:46 60 MLS/HR Acetaminophen/ Hydrocodone Bitart 1 tab Q4HP PRN PO 10/07/24 22:00 Ondansetron HCl 4 mg Q4HP PRN IV 10/07/24 22:00 Docusate Sodium 100 mg BIDPRN PRN PO 10/07/24 22:00 Acetaminophen 650 mg Q6HP PRN PO 10/07/24 22:00 10/09/24 16:53 650 MG Nitroglycerin 0.4 mg Q5MINP PRN SL 10/07/24 22:00 Morphine Sulfate 2 mg Q30M PRN IV 10/07/24 22:00 Potassium Chloride 40 meq DAILY PO 10/09/24 10:00 10/09/24 11:26 40 MEQ Acetaminophen 650 mg Q6HP PRN OH 10/10/24 16:15 UNV Physical Exam:General: emaciated, thin NADNeck: Supple. No masses.HEENT: PERRL. Normal lids and conjunctiva. Moist mucous membranes. Oropharynx without lesions, exudates or excessive erythema. Normal appearance of the external aspects of the nose and ears.Heart: Regular rhythm, normal rate. No murmur. No lower extremity edema.Lungs: Normal respiratory effort. Clear to auscultation bilaterally. No wheezes. No crackles.Abdomen: Soft. Non-tender. Non-distended. No masses or abdominal hernia.Msk: No digital cyanosis. Normal strength and tone in all 4 limbsSkin: Warm and dry, no rashes.Neuro: Alert. No facial droop or slurred speech. Extra-ocular movements intact. Sensation intact to soft touch in all 4 limbs.Psych: Appropriate mood. Full affect. Oriented to person, place, time, and situation. laboratory and microbiology Laboratory Tests 10/10/24 13:01 10/08/24 03:10 Test 10/10/24 13:01 Range/Units Serum Glucose 88 74-106 mg/dL Problem List/Assessment/Plan Problem List/Assessment/Plan ASSESSMENT AND PLAN: ID Problem List: -- HIV/AIDS (history of noncompliance) -- Esophageal candidiasis (TTC) -- Diabetes mellitus -- Anemia -- Generalized weakness -- Fever -- Nausea, vomiting, diarrhea -- History of spinal surgery -- failure to thrive, Assessment Saleem Allen is a 58 y.o. male with a past medical history of HIV/AIDS (history of noncompliance, Cd4 count 25), diabetes mellitus, esophageal candidiasis (TTC), anemia, and prior spinal surgery, presenting with generalized weakness, nausea, vomiting, diarrhea, fever, and cough, FTT. Current management consideration is to avoid azithromycin and fluconazole due to the specific clinical context. Instead, recommend nystatin swish and swallow in place of systemic antifungal, and to forego other oral prophylactic antimicrobial therapy at this time. Plan: \-- Avoid azithromycin and fluconazole at this time \-- Initiate nystatin swish and swallow in place of fluconazole for esophageal candidiasis \-- no need to reinitiate ART therapy given GOC to pursue hospice therapy \-- bactrim 1DS daily may provide symptomatic relief, can resume this. \-- Continue monitoring for changes in clinical status \-- Supportive care and monitoring of symptoms \-- Hospice and palliative teams continue to follow per prior plan Isolation Precautions: standard *Assessment and plan were discussed with the patient as written above *Plan is subject to change pending incorporation of new incoming information/diagnostics. Updates may be added as addendum at the bottom (OR TOP) of this note Thank you for interesting consult. ID will continue to follow. Please contact Infectious Disease for any questions or concerns. Trisha Souza M.D. [facility] Ph: ? Teams text: [email or web address] Electronically signed by: Trisha Souza MD, 10/10/2024 Plan discussed with: Patient TRISHA SOUZA MD Oct 10, 2024 16:36
[2024-10-10 16:47] LABS: Base Excess 0.1 mmol/L (-2.0-3.0)
[2024-10-10] MEDS: ACETAMINOPHEN 650 MG RECT SUPP PR PRN (16:47)
--- NOTE | 2024-10-10 16:54 | DVH ---
XY CHEST XRAY 1 VIEW, HISTORY: SOB COMPARISON: XY CHEST XRAY 1 VIEW on DOS: 10/07/24, XY CHEST XRAY 1 VIEW on DOS: 09/22/24, XY CHEST XRAY 1 VIEW on DOS: 09/14/24 XY CHEST XRAY 1 VIEW on DOS: 10/07/24, XY CHEST XRAY 1 VIEW on DOS: 09/22/24, XY CHEST XRAY 1 VIEW on DO S: 09/14/24 TECHNICAL DATA: 1 view of the chest was obtained. FINDINGS: Lines and tubes: None Cardiomediastinal silhouette: normal Pulmonary vasculature: normal Lung expansion: normal Lung airspace: Patchy bibasilar airspace opacities. Lung interstitium: normal Pleura: normal Pneumothorax: no Bones: Unremarkable Other: no IMPRESSION: Patchy bibasilar airspace opacities could be atlectasis or pneumonia.
[2024-10-10] MEDS ORDERED: LORazepam 2MG/ML-1ML VIAL IV ONE (17:00)
[2024-10-10 17:02] LABS: Hematocrit 32.9 % (41.0-53.0); Hemoglobin 11.2 g/dL (13.5-17.5); Mean Corpuscular Hemoglobin 30.1 pg (28.0-32.0); Mean Corpuscular Volume 89.0 fL (80.0-100.0); Nucleated Red Blood Cells % 0.6 %
[2024-10-10] MEDS: NYSTATIN (MOUTH-THROAT) 500,000 UNITS/5 ML SUSP MT SCH (18:00)
[2024-10-10] MEDS: ACETAMINOPHEN 650 MG RECT SUPP PR STA (20:45)
[2024-10-11] VITALS (33 sets, daily range): BP systolic 80–144; BP diastolic 48–76; PULSE 63–103; RESP 16–34; TEMP 98.1–100.2; O2SAT 92–100
--- NOTE | 2024-10-11 08:45 | DVH ---
INDICATION: changes in lung sound TECHNIQUE: Frontal view of the chest. COMPARISON: XY CHEST XRAY 1 VIEW on DOS: 10/10/24, XY CHEST XRAY 1 VIEW on DOS: 10/07/24, XY CHEST XRAY 1 VIEW on DOS: 09/22/24, XY CHEST XRAY 1 VIEW on DOS: 09/14/24 FINDINGS: . The heart and mediastinal contours are grossly unremarkable. There is no evidence of pleural disea se. The lungs are clear. The bony structures of the chest are intact without fracture. IMPRESSION: 1. Stable pulmonary edema
[2024-10-11] MEDS ORDERED: AZITHROMYCIN 250 MG TAB PO SCH (10:00)
--- NOTE | 2024-10-11 11:24 | DVHPN2 ---
Reviewed: Care Plan, H&P, Labs, Medications, Previous Orders, Radiology Changes from previous H/P or p: No Changes Eyes: No Pain, No Vision change, No Conjunctivae inflammation, No Eyelid inflammation, No Other, No Redness ENT: No Ear pain, No Ear discharge, No Nose pain, No Nose discharge, No Nose congestion, No Mouth pain, No Mouth swelling, No Throat pain, No Throat swelling, No Other Cardiovascular: No Chest Pain, No Palpitations, No Orthopnea, No Paroxysmal Noc. Dyspnea, No Edema, No Lt Headedness, No Other Respiratory: Cough; No Dry, No Shortness of breath, No SOB with excertion, No Wheezing, No Hemoptysis, No Pleuritic Pain, No Sputum, No Other Gastrointestinal: Nausea, Vomiting; No Abdominal Pain; Diarrhea; No Constipation, No Melena, No Hematochezia, No Other Genitourinary: No Dysuria, No Frequency, No Incontinence, No Hematuria, No Retention, No Other Musculoskeletal: No other, No neck pain, No shoulder pain, No arm pain, No back pain, No hand pain, No leg pain, No foot pain Skin: No Rash, No Lesions, No Jaundice, No Bruising, No Other Objective Vitals Vital Signs Date Time Temp Pulse Resp B/P (MAP) Pulse Ox O2 Delivery O2 Flow Rate FiO2 10/11/24 08:00 98.2 96 25 126/64 (84) 99 98.2 10/11/24 06:00 Nasal Cannula* 3 32 Intake/Output Intake and Output 10/11/24 07:00 Intake Total 849.0 ml Output Total 1451 ml Balance -602.0 ml Intake Oral 100 ml IV Total 749.0 ml Output Urine Total 1450 ml Stool Total 1 ml # Bowel Movements 1 Medications Current Medications Medications Dose Ordered Sig/Berto Route Start Time Stop Time Status Last Admin Dose Admin Cefepime HCl 50 ml @ 12.5 mls/hr Q8H IV 10/08/24 04:00 10/11/24 04:20 12.5 MLS/HR Sodium Chloride 1,000 ml @ 60 mls/hr [id number] IV 10/07/24 22:00 10/10/24 20:45 60 MLS/HR Acetaminophen/ Hydrocodone Bitart 1 tab Q4HP PRN PO 10/07/24 22:00 Ondansetron HCl 4 mg Q4HP PRN IV 10/07/24 22:00 Docusate Sodium 100 mg BIDPRN PRN PO 10/07/24 22:00 Acetaminophen 650 mg Q6HP PRN PO 10/07/24 22:00 10/09/24 16:53 650 MG Nitroglycerin 0.4 mg Q5MINP PRN SL 10/07/24 22:00 Morphine Sulfate 2 mg Q30M PRN IV 10/07/24 22:00 Potassium Chloride 40 meq DAILY PO 10/09/24 10:00 10/09/24 11:26 40 MEQ Acetaminophen 650 mg Q6HP PRN FL 10/10/24 16:15 10/10/24 16:47 650 MG Trimethoprim/ Sulfamethoxazole 1 tab DAILY PO 10/11/24 10:00 Nystatin 5 ml QID MT 10/10/24 18:00 10/11/24 06:27 5 ML Laboratory Results Laboratory Tests 10/10/24 13:01 10/10/24 16:30 Chemistry Test 10/10/24 13:01 Albumin 3.1 g/dL (3.2-4.8) L Calcium Level 7.3 mg/dL (8.7-10.4) L Total Protein 5.7 g/dL (5.7-8.2) LFT Test 10/10/24 13:01 Alanine Aminotransferase (ALT) 17 U/L (7-40) Alkaline Phosphatase 108 U/L (46-116) Aspartate Amino Transferase (AST) 31 U/L (13-40) Total Bilirubin 0.7 mg/dL (0.2-1.0) Urinalysis Test 10/08/24 11:12 Urine Color Light-yellow (Yellow) Urine Clarity Clear (Clear) Urine pH 6.0 (5.0-9.0) Urine Specific [place] 1.016 (1.001-1.035) Urine Protein Negative (Negative) Urine Ketones 1+ (Negative) H Urine Blood Negative /uL (Negative) Urine Nitrite Negative (Negative) Urine Bilirubin Negative (Negative) Urine Urobilinogen Normal mg/dL (Negative) Urine Leukocyte Esterase Negative /uL (Negative) Urine RBC <1 /hpf (0 - 3) Urine Microscopic WBC 5 /HPF (0-3) H Urine Squamous Epithelial Cells Few /hpf (<5) Urine Bacteria None seen /hpf (None Seen) Urine Hyaline Casts Few /lpf (0 - 2) Urine Mucus Few (None Seen) Urine Glucose Normal mg/dL (Normal) Blood Gas Results Test 10/10/24 16:25 Arterial Blood pH 7.433 (7.350-7.450) FiO2 % 28.0 Microbiology Microbiology Date/Time Source Procedure Growth Status 10/07/24 18:49 Blood Blood Culture - Preliminary NO GROWTH AFTER 72 HOURS OF INCUBATION. Resulted Labs and/or images reviewed: Labs reviewed by me, Image(s) reviewed by me Assessment/Plan Assessment/Plan Acute Hypokalemia 3.1: Replace potassium Leukopenia secondary to HIV Diarrhea in HIV patient: Consult for ID Dr. Raj Souza Anemia, unspecified Failure to thrive Generalized weakness HIV positive Esophageal candidiasis Medical noncompliance Recurrent admissions Patient lives with his second Carina [phone] at bedside, discussed the poor prognosis with the with the help of electrical tester RUSS Olmos and she is agreeable for hospice placement. Discharged home on hospice. Awaiting hospice to peanut picker the pt. Plan discussed with: Patient My Orders Orders - MARCO GREEN MD Procedure Category Date Status Time Code Status CODE 10/10/24 Transmitted 15:38 Abg W/ Co-Ox RT 10/10/24 Logged 16:00 Chest Xray 1 View XY 10/10/24 Resulted 16:00 Acetaminophen PHA 10/10/24 In Process Suppository (Tylenol 16:15 Transfer Orders XFER 10/11/24 Transmitted 00:54 Date of Service: Oct 11, 2024 Billing Provider: MARCO GREEN MD Common Visit Codes: 10623-[id number] INP/OBS CARE(HIGH) MARCO GREEN MD Oct 11, 2024 11:24
[2024-10-11] MEDS: SULFAMETHOX W/TRIMETH(800/160MG) DS TAB PO SCH (11:26)
--- NOTE | 2024-10-12 05:28 | DVHPN2 ---
Consult Progress Note Date Seen: Oct 11, 2024 Subjective Patient reports: Other (unable to tolerate many oral medications , continues to be recommended for hospice and patient is agreeable to this . is notably febrile . 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 No masses. HEENT: PERRL. Normal lids and conjunctiva. Moist mucous membranes. Oropharynx without lesions, exudates or excessive erythema. Normal appearance of the external aspects of the nose and ears. Heart: Regular rhythm, normal rate. No murmur. No lower extremity edema. Lungs: Normal respiratory effort. Clear to auscultation bilaterally. No wheezes. No crackles. Abdomen: Soft. Non-tender. Non-distended. No masses or abdominal hernia. Msk: No digital cyanosis. Normal strength and tone in all 4 limbs Skin: Warm and dry, no rashes. Neuro: Alert. No facial droop or slurred speech. Extra-ocular movements intact. Sensation intact to soft touch in all 4 limbs. Psych: Appropriate mood. Full affect. Oriented to person, place, time, and situation. laboratory and microbiology Laboratory Tests 10/10/24 16:30 10/10/24 13:01 Test 10/10/24 13:01 Range/Units Serum Glucose 88 74-106 mg/dL Problem List/Assessment/Plan Problems(with codes): (1) HIV (human immunodeficiency virus infection) (2) Failure to thrive (3) AIDS (4) Esophagitis (5) Anemia, unspecified (6) Generalized weakness (7) Sepsis Problem List/Assessment/Plan ASSESSMENT AND PLAN: ID Problem List: -- HIV/AIDS (history of noncompliance) -- Esophageal candidiasis (TTC) -- Diabetes mellitus -- Anemia -- Generalized weakness -- Fever -- Nausea, vomiting, diarrhea -- History of spinal surgery -- failure to thrive, Assessment Saleem Allen is a 58 y.o. male with a past medical history of HIV/AIDS (history of noncompliance, Cd4 count 25), diabetes mellitus, esophageal candidiasis (TTC), anemia, and prior spinal surgery, presenting with generalized weakness, nausea, vomiting, diarrhea, fever, and cough, FTT. Current management consideration is to avoid azithromycin and fluconazole due to the specific clinical context. Instead, recommend nystatin swish and swallow in place of systemic antifungal, and to forego other oral prophylactic antimicrobial therapy at this time. 10/11: remains septic with tachycardia and fevers , however likely all related to uncontrolled AIDS/HIV . patients dysphagia is likely related to esophageal canadensis secondary to AIDS infection Plan: \-- Avoid azithromycin and fluconazole at this time \-- Continue nystatin swish and swallow in place of fluconazole for esophageal candidiasis \-- no need to reinitiate ART therapy given GOC to pursue hospice therapy \-- bactrim 1DS daily may provide symptomatic relief, can resume this. \-- Continue monitoring for changes in clinical status \-- Supportive care and monitoring of symptoms \-- Hospice and palliative teams continue to follow per prior plan Isolation Precautions: standard *Assessment and plan were discussed with the patient as written above *Plan is subject to change pending incorporation of new incoming information/diagnostics. Updates may be added as addendum at the bottom (OR TOP) of this note Thank you for interesting consult. ID will continue to follow. Please contact Infectious Disease for any questions or concerns. Trisha Souza M.D. [facility] Ph: ? Teams text: Electronically signed by: Trisha Souza MD, 10/10/2024 Plan discussed with: Other TRISHA SOUZA MD Oct 12, 2024 05:28
== END 2024-10-11 18:00 | disposition hospice, home (50) | DRG 890 ==
LOC: ER 17:35 → EDBD 17:35 → OVERFLOW 21:47 → TELE-CENTR 10-08 13:45 → DOU IN ADS 10-10 19:36
PROVIDERS: ADMIT Family Medicine; ATTEND Family Medicine
DX: A41.9 Sepsis, unspecified organism (principal); B20 Human immunodeficiency virus [HIV] disease; J15.69 Pneumonia due to other Gram-negative bacteria; R64 Cachexia; B37.81 Candidal esophagitis; R62.7 Adult failure to thrive; J15.9 Unspecified bacterial pneumonia; E87.6 Hypokalemia; E44.1 Mild protein-calorie malnutrition; Z20.822 Contact with and (suspected) exposure to COVID-19; Z68.1 Body mass index [BMI] 19.9 or less, adult; D64.9 Anemia, unspecified; E11.9 Type 2 diabetes mellitus without complications; Z83.3 Family history of diabetes mellitus; Z91.148 Patient's other noncompliance with medication regimen for other reason; Z79.84 Long term (current) use of oral hypoglycemic drugs; Z79.899 Other long term (current) drug therapy
CPT/HCPCS: 36415; 36600; 71045; 80053; 81001; 82805; 83605; 85014; 85018; 85025; 85610; 85730; 86850; 86900; 86901; 87040; 87426; 87804; 93005; 96365; 99291; G0378; J2405